=== PATIENT | male | born 1980 | race Hispanic/Latino ===

== ENCOUNTER 2020-09-09 18:28 | Inpatient (IN) | payer SELFPAY ==
--- OUTSIDE RECORDS SUMMARY | 2020-09-09 18:32 | XMS REPORT | Continuity of Care Document ---
:1980 Author Organization [facility] t Address [address] [place] [address] Care Team Providers Name Role Phone Hailey Ruano MD Attending Clinician Problems This patient has no known problems. Allergies, Adverse Reactions, Alerts This patient has no known allergies or adverse reactions. Medications This patient has no known medications. Procedures This patient has no known procedures. Encounters Start End Encounter Admission Attending Care Care Encounter Source Date/Time Date/Time Type Type Clinicians Facility Department ID 2020-07-18 2020-07-18 Emergency Bindu, TRAUMA [id number] 18:53:00 22:47:00 Oscar BECERRA [id number] Results This patient has no known results.
[2020-09-09 20:12] LABS: Absolute Lymphocytes (CBC) 2.6 K/uL (0.7-4.9); Basophils % 1.4 % (0-1.3); Hematocrit 31.7 % (39.6-49.0); Lymphocytes % 19.7 % (15.3-44.8); MPV 9.5 fL (7.6-11.3); RBC Red Blood Cell Count 3.55 M/uL (4.33-5.43)
[2020-09-09 20:15] LABS: Urine Blood 1+ (Negative); Urine Glucose 2+ (Negative); Urine Protein Negative (Negative)
--- NOTE | 2020-09-09 20:22 | RAD REPORT ---
EXAM DESCRIPTION: RAD - Chest Single View - 09/09/2020 8:06 pm CLINICAL HISTORY: SWELLING Chest pain. COMPARISON: No comparisons FINDINGS: Portable technique limits examination quality. Mild interstitial pulmonary edema suspected. The heart is upper limit normal in size with a tortuous thoracic aorta. No displaced fractures.
[2020-09-09 20:25] LABS: Protime INR 1.05
--- NOTE | 2020-09-09 20:30 | RAD REPORT ---
EXAM DESCRIPTION: CT - Stone Protocol - 09/09/2020 8:15 pm CLINICAL HISTORY: Flank pain. HEMATURIA COMPARISON: No comparisons TECHNIQUE: Axial images were obtained without oral or IV contrast. Lack of contrast limits solid org an and vascular assessment. The [id number] spans the entirety of the system partially obscuring uppermost abdomen and lung bases. Coronal reformatted images were obtained and reviewed. All CT scans are performed using dose optimization technique as appropriate and may include automated exposure control or mA/KV adjustment according to patient size. FINDINGS: The lower lung austin are clear. Imaged portions of the liver and spleen show no suspicious findings on non-contrast imaging. The panc reas and adrenal glands are normal. No pathologic lymphadenopathy in the abdomen or pelvis. Severe bilateral hydroureter and hydronephrosis is present. The urinary bladder is distended and cont ains air. No obstructing renal calculus seen. No bowel obstruction, free air, free fluid or abscess. Normal appendix noted.Fat containing bilateral inguinal hernias, larger on the right. No significant bony abnormality. IMPRESSION: Severe bilateral hydroureter, hydronephrosis in urinary bladder distention is present. A ir is also present in the bladder, which may be related to infection or recent instrumentation. A danyell dder outlet obstruction is suspected.
[2020-09-09] MEDS ORDERED: NA CHLORIDE 0.9% 2,000 ML ONE (20:34)
[2020-09-09] MEDS ORDERED: CEFTRIAXONE/SWI 1gm 1 GM/10 ML SYR ONE (20:36)
[2020-09-09] MEDS ORDERED: INSULIN -REGULAR HUMAN 50 UNIT/0.5 ML ML ONE ×2 (20:36→23:59)
[2020-09-09 20:49] LABS: ALT/SGPT 12 U/L (12-78); AST/SGOT 8 U/L (15-37); Albumin 2.8 g/dL (3.4-5.0); Alkaline Phosphatase 199 U/L (45-117); BUN Blood Urea Nitrogen 37 mg/dL (7-18); Bicarbonate 21 mmol/L (21-32); Bilirubin Direct < 0.1 mg/dL (0-0.2); Bilirubin Total 0.2 mg/dL (0.2-1.0); Lipase 160 U/L (73-393); Magnesium 2.2 mg/dL (1.8-2.4); NT PRO-BNP 181 pg/mL (<125); Potassium 3.9 mmol/L (3.5-5.1); Protein, Total 8.2 g/dL (6.4-8.2); Sodium Level 126 mmol/L (136-145); Troponin (Emerg Dept Use Only) < 0.02 ng/mL (0.0-0.045)
--- NOTE | 2020-09-09 20:49 | ER ---
Nurse's Notes [facility] Name: Alex Skaggs Age: 40 yrs Sex: Male : 1980 Arrival Date: 09/09/2020 Time: 18:32 Bed 26 Private MD: Diagnosis: Retention of urine-bladder outlet obstruction. PVR 1500 CC;Urinary tract infection, site not specified;Acute kidney failure;Type 2 diabetes mellitus-uncontrolled;Hydroureter;Hydronephrosis with ureteral stricture, not elsewhere classified-secondary to bladder outlet obstruction;Essential (primary) hypertension Presentation: 09/09 19:00 Chief complaint: Patient states: I am having numbness, weakness and my feet are swollen rr5 started around June. I feel that i gets worse now. I've been diagnosed with kidney infection last June and they said i have kidney infection. 19:00 Coronavirus screen: Client denies travel out of the [place] in the last 14 days. At this rr5 time, the client does not indicate any symptoms associated with coronavirus-19. Ebola Screen: Patient negative for fever greater than or equal to 101.5 degrees Fahrenheit, and additional compatible Ebola Virus Disease symptoms Patient denies exposure to infectious person. Patient denies travel to an Ebola-affected area in the 21 days before illness onset. Initial Sepsis Screen: Does the patient meet any 2 criteria? No. Patient's initial sepsis screen is negative. Does the patient have a suspected source of infection? No. Patient's initial sepsis screen is negative. Risk Assessment: Do you want to hurt yourself or someone else? Patient reports no desire to harm self or others. Onset of symptoms was June 2020. 19:00 Method Of Arrival: Wheelchair rr5 19:00 Acuity: MIKIE 2 rr5 Historical: - Allergies: 19:09 No Known Allergies; rr5 - Home Meds: 19:09 None [Active]; rr5 - PMHx: 19:09 Diabetes - NIDDM; Hypertension; kidney infection; rr5 - PSHx: 19:09 None; rr5 - Immunization history:: Adult Immunizations up to date. - Social history:: Smoking status: Patient reports the use of cigarette tobacco products, smokes one pack cigarettes per day. Patient uses alcohol, street drugs. Screenin:00 Abuse screen: Denies threats or abuse. Denies injuries from another. Nutritional screening: No deficits noted. Tuberculosis screening: No symptoms or risk factors identified. Fall Risk None identified. Assessment: 19:30 General: Appears in no apparent distress. Behavior is calm, cooperative, appropriate wh for age. Pain: Denies pain. Neuro: Level of Consciousness is awake, alert, obeys commands, Oriented to person, place, time, situation, Appropriate for age. Cardiovascular: Heart tones S1 S2 Edema BLE. Respiratory: Airway is patent Respiratory effort is even, unlabored, Respiratory pattern is regular, symmetrical, Breath sounds are clear bilaterally. GI: Abdomen is round non-distended. : Reports urinary frequency. EENT: No signs and/or symptoms were reported regarding the EENT system. Derm: Skin is intact, is healthy with good turgor, Skin is pink, warm \T\ dry. normal. Musculoskeletal: Circulation, motion, and sensation intact. 21:00 Reassessment: Patient appears in no apparent distress at this time. No changes from previously documented assessment. Patient and/or family updated on plan of care and expected duration. Pain level reassessed. Patient is alert, oriented x 3, equal unlabored respirations, skin warm/dry/pink. 21:20 Reassessment: MD at bedside explaining POC, Pt refusing all treatments and wanting to wh sign out AMA. 22:00 Reassessment: Pt decided to be admitted and agreeable to POC. 23:00 Reassessment: Patient appears in no apparent distress at this time. Patient and/or family updated on plan of care and expected duration. Pain level reassessed. Patient is alert, oriented x 3, equal unlabored respirations, skin warm/dry/pink. 09/10 00:00 Reassessment: Provider at bedside explaining POC need foradmit. Vital Signs: 09/09 19:00 BP 179 / 115; Pulse 111; Resp 19; Temp 99; Pulse Ox 100% ; Weight 108.86 kg; Height 5 rr5 ft. 4 in. (162.56 cm); Pain 7/10; 21:00 BP 174 / 115; Pulse 113; Resp 18; Pulse Ox 100% on R/A; wh 22:00 BP 140 / 102; Pulse 115; Resp 18; Pulse Ox 99% ; 09/10 00:00 BP 154 / 94; Pulse 117; Resp 18; Pulse Ox 100% ; wh 09/09 19:00 Body Mass Index 41.20 (108.86 kg, 162.56 cm) rr5 ED Course: 09/09 18:32 Patient arrived in ED. as 19:08 Triage completed. rr5 19:10 Arm band placed on right wrist. rr5 19:31 Laron Pham MD is Attending Physician. karen 19:40 Missed attempt(s): 22 gauge in left antecubital area. Bleeding controlled, band aid ds4 applied, catheter tip intact. 20:00 Patient has correct armband on for positive identification. Placed in gown. Bed in low wh position. Call light in reach. Side rails up X 1. court recording monitor on. Pulse ox on. NIBP on. 20:06 XRAY Chest (1 view) In Process Unspecified. EDMS 20:10 Joe Webb, CHIDI is Primary Nurse. mg2 20:15 CT Stone Protocol In Process Unspecified. EDMS 20:25 Inserted saline lock: 20 gauge in right upper arm, using aseptic technique. Blood rr5 collected. 20:25 First set of blood cultures drawn by me. rr5 20:40 Second set of blood cultures drawn by me. rr5 20:42 COVID swab sent to lab. rr5 20:52 initiated a transfer with Tigist Sylvester from [facility]. mw2 21:24 doc to doc with the Urologist from [facility]. mw2 21:26 transfer canceled. mw2 21:27 Marta Bright MD is Hospitalizing Provider. karen 09/10 00:30 No provider procedures requiring assistance completed. Patient admitted, IV remains in place. Administered Medications: 09/09 20:35 Drug: NS 0.9% 1000 ml Route: IV; Rate: 1 bolus; Site: right upper arm; rr5 22:55 Follow up: Response: No adverse reaction; IV Status: Completed infusion 20:35 Drug: Rocephin - (cefTRIAXone) 1 grams Route: IVPB; Infused Over: 30 mins; Site: right rr5 upper arm; 22:54 Follow up: Response: No adverse reaction; IV Status: Completed infusion 20:36 Drug: NS 0.9% 1000 ml Route: IV; Rate: 1 bolus; Site: right upper arm; rr5 22:55 Follow up: Response: No adverse reaction; IV Status: Completed infusion 20:38 Drug: Insulin Regular Human 10 units {Co-Signature: rr5 (Moustapha Rizzo RN).} Route: mg2 IVP; Site: right upper arm; 22:55 Follow up: Response: No adverse reaction; Blood sugar is lowered 20:40 Drug: Insulin Regular Human 10 units {Co-Signature: rr5 (Moustapha Rizzo RN).} Route: mg2 Sub-Q; Site: right lower abdomen; 22:55 Follow up: Response: No adverse reaction; Blood sugar is lowered 22:00 Drug: Viscous Lidocaine Liquid (4 %) 5 ml Route: Mucous Membrane; 22:01 Not Given (Duplicate Order): levofloxacin 500 mg 100 ml IVPB once over 60 mins [facility] 22:08 Drug: levofloxacin 500 mg Volume: 100 ml; Route: IVPB; Infused Over: 60 mins; Site: right upper arm; 22:54 Follow up: Response: No adverse reaction; IV Status: Completed infusion 22:54 Drug: Meropenem 1 grams Route: IV; Rate: per protocol; Site: right upper arm; 09/10 00:36 Follow up: Response: No adverse reaction; IV Status: Completed infusion 09/09 23:51 Drug: Zofran (Ondansetron) 4 mg Route: IVP; Site: right upper arm; 09/10 00:36 Follow up: Response: No adverse reaction 09/09 23:53 Drug: morphine 4 mg {Note: RASS 0.} Route: IVP; Site: right upper arm; 09/10 00:36 Follow up: Response: No adverse reaction; Pain is decreased; RASS: Alert and Calm (0) 09/09 23:55 Drug: LanTUS (insulin glargine) 30 units Route: Sub-Q; Site: right lower abdomen; 09/10 00:36 Follow up: Response: No adverse reaction 09/09 23:57 Drug: Insulin Regular Human 10 units {Co-Signature: mg2 (Joe Webb RN).} Route: wh IVP; Site: right upper arm; 09/10 00:53 Follow up: Response: No adverse reaction; Blood sugar is lowered Outcome: 09/09 20:48 ER care complete, transfer ordered by MD. karen 21:30 Decision to Hospitalize by Provider. kraen 09/10 00:30 Admitted to ER Hold. Please see [facility] for further documentation. Condition: stable Instructed on the need for admit. 18:06 Patient left the ED. aa5 Signatures: Dispatcher [employer] EDLaron Mahmood MD MD cha Martinez, Amelia as Calderon, Audri, RN RN aa5 Eric Barone ds4 Curtis Mackenzie RN RN Sue Metcalf 2 Joe Webb RN RN mg2 Moustapha Rizzo RN RN rr5 Moustapha Rizzo RN rr5 Joe Webb RN mg2 Corrections: (The following items were deleted from the chart) 09/09 19:13 19:00 Acuity: MIKIE 3 rr5 rr5
--- NOTE | 2020-09-09 20:49 | EDPHYS ---
Physician Documentation [facility] Name: Alex Skaggs Age: 40 yrs Sex: Male : 1980 Arrival Date: 09/09/2020 Time: 18:32 Bed 26 Private MD: ED Physician Laron Pham HPI: 09/09 19:40 This 40 yrs old Male presents to ER via Wheelchair with complaints of Leg karen Swelling, Feet Swelling, Numbness, kidney infection. 19:40 The patient's problem is reported as weakness, that is generalized. Onset: The karen symptoms/episode began/occurred 1 week(s) ago. Duration: The episode is continuous. Context: the episode(s) was witnessed, by family. The symptoms are alleviated by nothing. The symptoms are aggravated by nothing. Severity of symptoms: At their worst the symptoms were mild in the emergency department the symptoms are unchanged. Patient's baseline: Neuro: alert and fully oriented, Motor: no deficits, Ambulation: walks without assistance, Speech: normal, normal for age. The patient has experienced similar episodes in the past, several times. Historical: - Allergies: 19:09 No Known Allergies; rr5 - Home Meds: 19:09 None [Active]; rr5 - PMHx: 19:09 Diabetes - NIDDM; Hypertension; kidney infection; rr5 - PSHx: 19:09 None; rr5 - Immunization history:: Adult Immunizations up to date. - Social history:: Smoking status: Patient reports the use of cigarette tobacco products, smokes one pack cigarettes per day. Patient uses alcohol, street drugs. ROS: 19:43 Constitutional: Negative for fever, chills, and weight loss, Eyes: Negative for injury, karen pain, redness, and discharge, ENT: Negative for injury, pain, and discharge, Neck: Negative for injury, pain, and swelling, Cardiovascular: Negative for chest pain, palpitations, and edema, Respiratory: Negative for shortness of breath, cough, wheezing, and pleuritic chest pain, Abdomen/GI: Negative for abdominal pain, nausea, vomiting, diarrhea, and constipation, Back: Negative for injury and pain, MS/Extremity: Negative for injury and deformity, Skin: Negative for injury, rash, and discoloration, Psych: Negative for depression, anxiety, suicide ideation, homicidal ideation, and hallucinations, Allergy/Immunology: Negative for hives, rash, and allergies, Endocrine: Negative for neck swelling, polydipsia, polyuria, polyphagia, and marked weight changes. 19:43 : Positive for urinary symptoms, urinary frequency. Exam: 19:43 Constitutional: This is a well developed, well nourished patient who is awake, alert, karen and in no acute distress. Head/Face: Normocephalic, atraumatic. Eyes: Pupils equal round and reactive to light, extra-ocular motions intact. Lids and lashes normal. Conjunctiva and sclera are non-icteric and not injected. Cornea within normal limits. Periorbital areas with no swelling, redness, or edema. ENT: Nares patent. No nasal discharge, no septal abnormalities noted. Tympanic membranes are normal and external auditory canals are clear. Oropharynx with no redness, swelling, or masses, exudates, or evidence of obstruction, uvula midline. Mucous membranes moist. Neck: Trachea midline, no thyromegaly or masses palpated, and no cervical lymphadenopathy. Supple, full range of motion without nuchal rigidity, or vertebral point tenderness. No Meningismus. Chest/axilla: Normal chest wall appearance and motion. Nontender with no deformity. No lesions are appreciated. Respiratory: Lungs have equal breath sounds bilaterally, clear to auscultation and percussion. No rales, rhonchi or wheezes noted. No increased work of breathing, no retractions or nasal flaring. Abdomen/GI: Soft, non-tender, with normal bowel sounds. No distension or tympany. No guarding or rebound. No evidence of tenderness throughout. Back: No spinal tenderness. No costovertebral tenderness. Full range of motion. Male : Normal genitalia with no discharge or lesions. Skin: Warm, dry with normal turgor. Normal color with no rashes, no lesions, and no evidence of cellulitis. MS/ Extremity: Pulses equal, no cyanosis. Neurovascular intact. Full, normal range of motion. Neuro: Awake and alert, GCS 15, oriented to person, place, time, and situation. Cranial nerves II-XII grossly intact. Motor strength 5/5 in all extremities. Sensory grossly intact. Cerebellar exam normal. Normal gait. Psych: Awake, alert, with orientation to person, place and time. Behavior, mood, and affect are within normal limits. 19:43 Cardiovascular: Rate: tachycardic, Rhythm: regular, Pulses: Pulses are 4+ in bilateral radial, brachial, femoral, popliteal, posterior tibial and and dorsalis pedis arteries.. Heart sounds: murmur, not appreciated, Edema: is not appreciated, JVD: is not appreciated. 19:43 Abdomen/GI: Exam negative for acute changes. 19:43 Back: Exam negative for acute changes. 20:57 ECG was reviewed by the Attending Physician. [facility] Vital Signs: 19:00 BP 179 / 115; Pulse 111; Resp 19; Temp 99; Pulse Ox 100% ; Weight 108.86 kg; Height 5 rr5 ft. 4 in. (162.56 cm); Pain 7/10; 21:00 BP 174 / 115; Pulse 113; Resp 18; Pulse Ox 100% on R/A; wh 22:00 BP 140 / 102; Pulse 115; Resp 18; Pulse Ox 99% ; 09/10 00:00 BP 154 / 94; Pulse 117; Resp 18; Pulse Ox 100% ; 09/09 19:00 Body Mass Index 41.20 (108.86 kg, 162.56 cm) rr5 MDM: 09/09 19:31 Patient medically screened. [facility] 19:45 Differential diagnosis: nonspecific abdominal pain, UTI, urinary retention, karen prostatitis, urethritis. Differential Diagnosis altered mental status, sepsis. Data reviewed: vital signs, nurses notes, lab test result(s), EKG, radiologic studies, CT scan, plain films. Data interpreted: cafeteria monitor: rate is 111 beats/min, rhythm is regular, Pulse oximetry: on room air is 100 %. Test interpretation: by ED physician or midlevel provider: ECG, plain radiologic studies. Counseling: I had a detailed discussion with the patient and/or guardian regarding: the historical points, exam findings, and any diagnostic results supporting the discharge/admit diagnosis, lab results, radiology results. 09/09 19:24 Order name: Glucose, Ancillary Testing; Complete Time: 20:43 EDND 09/09 19:40 Order name: Basic Metabolic Panel [facility] 09/09 19:40 Order name: CBC with Diff [facility] 09/09 19:40 Order name: LFT's [facility] 09/09 19:40 Order name: Magnesium [facility] 09/09 19:40 Order name: NT PRO-BNP [facility] 09/09 19:40 Order name: PT-INR [facility] 09/09 19:40 Order name: Troponin (emerg Dept Use Only) [facility] 09/09 19:40 Order name: Blood Culture Adult (2) [facility] 09/09 19:40 Order name: Lipase [facility] 09/09 19:40 Order name: Lactate; Complete Time: 22:00 [facility] 09/09 19:40 Order name: Urine Culture [facility] 09/09 19:40 Order name: ABG [facility] 09/09 19:41 Order name: Basic Metabolic Panel EDND 09/09 19:41 Order name: CBC with Automated Diff; Complete Time: 20:43 EDND 09/09 19:41 Order name: Liver (Hepatic) Function EDND 09/09 19:41 Order name: Magnesium EDND 09/09 19:41 Order name: NT PRO-BNP EDND 09/09 19:41 Order name: Protime (+INR); Complete Time: 20:43 EDND 09/09 19:41 Order name: Troponin (Emerg Dept Use Only) [facility] 09/09 19:48 Order name: Glucose, Ancillary Testing; Complete Time: 20:43 [facility] 09/09 20:15 Order name: Urine Dipstick-Ancillary; Complete Time: 20:43 EDND 09/09 20:17 Order name: Urine Microscopic Only rr5 09/09 20:17 Order name: Urine Microscopic Only; Complete Time: 21:21 [facility] 09/09 22:18 Order name: SARS-COV-2 RT PCR; Complete Time: 23:13 [facility] 09/09 23:00 Order name: Glucose 09/09 23:01 Order name: Glucose Level [facility] 09/09 23:12 Order name: Glucose, Ancillary Testing; Complete Time: 23:13 [facility] 09/10 00:30 Order name: Lactate Sepsis 2 HR Follow-up EDND 09/09 19:40 Order name: XRAY Chest (1 view); Complete Time: 20:43 [facility] 09/09 19:46 Order name: CT Stone Protocol; Complete Time: 20:43 [facility] 09/10 01:49 Order name: Glucose, Ancillary Testing EDND 09/10 02:18 Order name: CPK ej 09/10 02:18 Order name: Uric Acid ej 09/10 04:04 Order name: Glucose, Ancillary Testing EDND 09/10 05:17 Order name: T4 Free EDND 09/10 05:17 Order name: Thyroid Stimulating Hormone EDND 09/10 05:48 Order name: CBC with Automated Diff EDND 09/10 06:15 Order name: Glucose, Ancillary Testing EDND 09/10 06:21 Order name: Uric Acid EDND 09/10 06:21 Order name: Creatine Phosphokinase EDND 09/10 06:34 Order name: Comprehensive Metabolic Panel EDND 09/10 06:34 Order name: Phosphorus EDND 09/10 06:34 Order name: Lipid Profile EDND 09/10 06:34 Order name: Magnesium EDND 09/10 06:45 Order name: LDL, Direct EDND 09/10 12:25 Order name: Glucose, Ancillary Testing EDND 09/10 18:05 Order name: Glucose, Ancillary Testing [facility] 09/09 19:40 Order name: EKG; Complete Time: 19:41 [facility] 09/09 19:40 Order name: Cardiac monitoring; Complete Time: 20:52 [facility] 09/09 19:40 Order name: EKG - Nurse/Tech; Complete Time: 20:52 [facility] 09/09 19:40 Order name: IV Saline Lock; Complete Time: 20:42 [facility] 09/09 19:40 Order name: Labs collected and sent; Complete Time: 19:47 [facility] 09/09 19:40 Order name: O2 Per Protocol; Complete Time: 19:47 [facility] 09/09 19:40 Order name: O2 Sat Monitoring; Complete Time: 19:47 [facility] 09/09 19:40 Order name: Urine Dipstick-Ancillary (obtain specimen); Complete Time: 20:41 [facility] 09/09 20:46 Order name: Herzog; Complete Time: 22:02 [facility] 09/09 23:08 Order name: CONS Physician Consult EDND EC:57 Rate is 113 beats/min. Rhythm is regular. QRS [place] is Normal. [place] interval is normal. [facility] QRS interval is normal. QT interval is normal. No Q waves. T waves are Normal. No ST changes noted. Clinical impression: NSR w/ Non-specific ST/T Changes and No evidence of ischemia. Interpreted by me. Reviewed by me. Administered Medications: 20:35 Drug: NS 0.9% 1000 ml Route: IV; Rate: 1 bolus; Site: right upper arm; rr5 22:55 Follow up: Response: No adverse reaction; IV Status: Completed infusion 20:35 Drug: Rocephin - (cefTRIAXone) 1 grams Route: IVPB; Infused Over: 30 mins; Site: right rr5 upper arm; 22:54 Follow up: Response: No adverse reaction; IV Status: Completed infusion 20:36 Drug: NS 0.9% 1000 ml Route: IV; Rate: 1 bolus; Site: right upper arm; rr5 22:55 Follow up: Response: No adverse reaction; IV Status: Completed infusion 20:38 Drug: Insulin Regular Human 10 units {Co-Signature: rr5 (Moustapha Rizzo RN).} Route: mg2 IVP; Site: right upper arm; 22:55 Follow up: Response: No adverse reaction; Blood sugar is lowered 20:40 Drug: Insulin Regular Human 10 units {Co-Signature: rr5 (Moustapha Rizzo RN).} Route: mg2 Sub-Q; Site: right lower abdomen; 22:55 Follow up: Response: No adverse reaction; Blood sugar is lowered 22:00 Drug: Viscous Lidocaine Liquid (4 %) 5 ml Route: Mucous Membrane; 22:01 Not Given (Duplicate Order): levofloxacin 500 mg 100 ml IVPB once over 60 mins [facility] 22:08 Drug: levofloxacin 500 mg Volume: 100 ml; Route: IVPB; Infused Over: 60 mins; Site: right upper arm; 22:54 Follow up: Response: No adverse reaction; IV Status: Completed infusion :54 Drug: Meropenem 1 grams Route: IV; Rate: per protocol; Site: right upper arm; 09/10 00:36 Follow up: Response: No adverse reaction; IV Status: Completed infusion 09/09 23:51 Drug: Zofran (Ondansetron) 4 mg Route: IVP; Site: right upper arm; 09/10 00:36 Follow up: Response: No adverse reaction 09/09 23:53 Drug: morphine 4 mg {Note: RASS 0.} Route: IVP; Site: right upper arm; 09/10 00:36 Follow up: Response: No adverse reaction; Pain is decreased; RASS: Alert and Calm (0) 09/09 23:55 Drug: LanTUS (insulin glargine) 30 units Route: Sub-Q; Site: right lower abdomen; 09/10 00:36 Follow up: Response: No adverse reaction 09/09 23:57 Drug: Insulin Regular Human 10 units {Co-Signature: mg2 (Joe Webb RN).} Route: IVP; Site: right upper arm; 09/10 00:53 Follow up: Response: No adverse reaction; Blood sugar is lowered Disposition: 09/09/20 21:30 Hospitalization ordered by Marta Bright for Inpatient Admission. Preliminary diagnosis are Retention of urine - bladder outlet obstruction. PVR 1500 CC, Urinary tract infection, site not specified, Acute kidney failure, Type 2 diabetes mellitus - uncontrolled, Hydroureter, Hydronephrosis with ureteral stricture, not elsewhere classified - secondary to bladder outlet obstruction, Essential (primary) hypertension. - Bed requested for Telemetry/MedSurg (Inpatient). - Status is Inpatient Admission. aa5 - Condition is Fair. - Problem is new. - Symptoms have improved. Signatures: Dispatcher [employer] EDMS Anaid Hatfiedl, Laron Muhammad RN, MD MD cha Calderon, Audri RN RN aa5 Lorena Retana RN RN Curtis Mackenzie RN RN Joe Webb RN RN mg2 Moustapha Rizzo RN RN rr5 Moustapha Rizzo RN rr5 Joe Webb RN mg2 Corrections: (The following items were deleted from the chart) 09/09 20:50 20:48 09/09/2020 20:48 [facility] Diagnosis is Type 2 diabetes karen mellitus - uncontrolled; Urinary tract infection, site not specified; Hydroureter; Hydronephrosis with ureteral stricture, not elsewhere classified; Retention of urine; Obesity, unspecified; Elevated white blood cell count. Reason for transfer: Higher level of care. Accepting physician is to [facility], medicine , urology. Condition is Fair. Problem is new. Symptoms have improved. karen 21:19 19:47 CORONAVIRUS+MR.LAB.BRZ ordered. [facility] 21:26 20:50 09/09/2020 20:48 [facility] Diagnosis is Type 2 diabetes karen mellitus - uncontrolled; Urinary tract infection, site not specified; Hydroureter; Hydronephrosis with ureteral stricture, not elsewhere classified; Retention of urine; Obesity, unspecified; Elevated white blood cell count; Essential (primary) hypertension; Acute kidney failure. Reason for transfer: Higher level of care. Accepting physician is to [facility], medicine , urology. Condition is Fair. Problem is new. Symptoms have improved. karen 22:02 21:30 Hospitalization Ordered by Marta Bright MD for Inpatient Admission. Preliminary karen diagnosis is Retention of urine - bladder outlet obstruction; Urinary tract infection, site not specified; Acute kidney failure; Type 2 diabetes mellitus - uncontrolled; Hydroureter; Hydronephrosis with ureteral stricture, not elsewhere classified - secondary to bladder outlet obstruction. Bed requested for Telemetry/MedSurg (Inpatient). Status is Inpatient Admission. Condition is Fair. Problem is new. Symptoms have improved. karen 22:08 22:02 09/09/2020 21:30 Hospitalization Ordered by Marta Bright MD for Inpatient karen Admission. Preliminary diagnosis is Retention of urine - bladder outlet obstruction; Urinary tract infection, site not specified; Acute kidney failure; Type 2 diabetes mellitus - uncontrolled; Hydroureter; Hydronephrosis with ureteral stricture, not elsewhere classified - secondary to bladder outlet obstruction; Essential (primary) hypertension. Bed requested for Telemetry/MedSurg (Inpatient). Status is Inpatient Admission. Condition is Fair. Problem is new. Symptoms have improved. karen : 22:08 09/09/2020 21:30 Hospitalization Ordered by Marta Bright MD for Inpatient cg Admission. Preliminary diagnosis is Retention of urine - bladder outlet obstruction. PVR 1500 CC; Urinary tract infection, site not specified; Acute kidney failure; Type 2 diabetes mellitus - uncontrolled; Hydroureter; Hydronephrosis with ureteral stricture, not elsewhere classified - secondary to bladder outlet obstruction; Essential (primary) hypertension. Bed requested for Telemetry/MedSurg (Inpatient). Status is Inpatient Admission. Condition is Fair. Problem is new. Symptoms have improved. karen 09/10 17:02 09/09 23:31 09/09/2020 21:30 Hospitalization Ordered by Marta Bright MD for Inpatient dw Admission. Preliminary diagnosis is Retention of urine - bladder outlet obstruction. PVR 1500 CC; Urinary tract infection, site not specified; Acute kidney failure; Type 2 diabetes mellitus - uncontrolled; Hydroureter; Hydronephrosis with ureteral stricture, not elsewhere classified - secondary to bladder outlet obstruction; Essential (primary) hypertension. Bed requested for [facility] ER HOLD. Status is Inpatient Admission. Condition is Fair. Problem is new. Symptoms have improved. cg 09/10 18:06 17:02 09/09/2020 21:30 Hospitalization Ordered by Marta Bright MD for Inpatient aa5 Admission. Preliminary diagnosis is Retention of urine - bladder outlet obstruction. PVR 1500 CC; Urinary tract infection, site not specified; Acute kidney failure; Type 2 diabetes mellitus - uncontrolled; Hydroureter; Hydronephrosis with ureteral stricture, not elsewhere classified - secondary to bladder outlet obstruction; Essential (primary) hypertension. Bed requested for Telemetry/MedSurg (Inpatient). Status is Inpatient Admission. Condition is Fair. Problem is new. Symptoms have improved. dw
[2020-09-09 20:50] LABS: Glucose Level 775 mg/dL (74-106)
[2020-09-09 21:04] LABS: Urine Bacteria >50 /HPF (NONE SEEN); Urine RBC NONE SEEN /HPF (NONE SEEN)
[2020-09-09] MEDS ORDERED: Levofloxacin500mg IV 500 MG/100 ML BAG IV ONE (22:03)
[2020-09-09] MEDS ORDERED: LIDOCAINE VISCOUS 2% SOLN 15 ML UDC ONE (22:03)
[2020-09-09] MEDS ORDERED: Meropenem 1 GM/100 ML BAG ONE (22:22)
[2020-09-09] MEDS ORDERED: INSULIN GLARGINE 100 UNITS/ML SQ ONE (23:59)
[2020-09-10 00:24] VITALS: BMI 41.1
[2020-09-10] MEDS ORDERED: HYDRALAZINE HCL 20 MG/ML VIAL IV PRN (00:31)
[2020-09-10] MEDS ORDERED: ONDANSETRON 4 MG/2 ML VIAL IV PRN (00:31)
[2020-09-10] MEDS ORDERED: ACETAMINOPHEN 500 MG TAB PO PRN (00:31)
[2020-09-10] MEDS: NA CHLORIDE 0.9% 1,000 ML IV SCH ×2 (00:31→20:01)
[2020-09-10] MEDS: HEPARIN 5000 UNIT/ML 1 ML VIAL SQ SCH ×3 (01:00→17:00)
[2020-09-10] MEDS ORDERED: Meropenem 1 GM/100 ML BAG IV SCH (01:00)
[2020-09-10] MEDS ORDERED: HEPARIN 5000 UNIT/ML 1 ML VIAL ONE ×3 (01:21→17:59)
[2020-09-10] MEDS ORDERED: NA CHLORIDE 0.9% 1,000 ML ONE ×2 (01:21→11:38)
[2020-09-10] MEDS ORDERED: PHENAZOPYRIDINE 100MG TAB PO ONE ×2 (03:51→13:46)
[2020-09-10] MEDS ORDERED: ONDANSETRON 4 MG/2 ML VIAL ONE ×2 (03:52)
[2020-09-10] MEDS ORDERED: MORPHINE 4 MG/ML SYR ONE ×2 (03:52)
--- NOTE | 2020-09-10 05:30 | P.HP ---
Certification for Inpatient Patient admitted to: Inpatient With expected LOS: >2 Midnights Patient will require the following post-hospital care: None Practitioner: I am a practitioner with admitting privileges, knowledge of patient current condition, hospital course, and medical plan of care. Services: Services provided to patient in accordance with Admission requirements found in Title 42 Section 412.3 of the Code of Federal Regulations <Rosendo Coffman Nasrin - Last Filed: 09/10/20 05:25> Patient History Date of Service: 09/10/20 Primary Care Provider: Vilma Reason for admission: UTI, TJ, hydronephrosis History of Present Illness: Mr. Skaggs is a 40 yo M with DM and HTN here who was in his usual state of health until June. He says 2 weeks after starting new medications for his DM, he began having hematuria for 3-4 days. He was seen at [facility] and was told he had a severe UTI and needed IV abx but he left AMA. He has not taken any oral antibiotics. He says he has had night sweats, chills, bilateral flank pain, dizziness, frequency, incontinence, and difficulty walking. He denies urgency, diarrhea, constipation, nausea. He says he was taking up to 10 extra strength tylenol a day for his symptoms. He smokes 1ppd. CT scan showed Severe bilateral hydroureter, hydronephrosis in urinary bladder distention is present. Air is also present in the bladder, which may be related to infection or recent instrumentation. A bladder outlet obstruction is suspected. WBC 13.4. - Past Medical/Surgical History Has patient received pneumonia vaccine in the past: No Diabetic: Yes -: DM -: HTN -: Kidney Infection Past Surgical History: Patient denies surgical history - Family History Mother -: Diabetes Father -: Diabetes - Social History Smoking Status: Heavy Tobacco smoker (>10 cigarettes/day) Alcohol use: No CD- Drugs: No Caffeine use: No Place of Residence: Home <Rosendo Coffman - Last Filed: 09/10/20 05:25> Date of Service: 09/10/20 <Marta Bright - Last Filed: 09/15/20 06:01> Allergies No Known Allergies Allergy (Verified 09/10/20 00:25) Home Medications: NK [No Home Meds] 04/21/21 Review of Systems General: Chills, Sweats, As per HPI Eyes: Unremarkable ENT: Unremarkable Respiratory: Unremarkable Cardiovascular: Unremarkable Gastrointestinal: Vomiting, Abdominal Pain, As per HPI Genitourinary: Frequency, Incontinence, Hematuria, Retention, As per HPI Musculoskeletal: Back Pain, As per HPI Integumentary: Unremarkable Neurological: Unremarkable Lymphatics: Unremarkable <Rosendo Coffman - Last Filed: 09/10/20 05:25> Physical Examination - Vital Signs Temperature: 98.2 F Blood Pressure: 154/94 Pulse: 117 Respirations: 18 Pulse Ox (%): 100 - Physical Exam General: Alert, In no apparent distress, Oriented x3 HEENT: Atraumatic, Normocephalic, PERRLA, Mucous membr. moist/pink, EOMI, Sclerae nonicteric Neck: Supple, 2+ carotid pulse no bruit, JVD not distended, No Thyromegaly, No LAD Respiratory: Clear to auscultation bilaterally, Normal air movement Cardiovascular: No edema, Normal pulses, Regular rate/rhythm, Normal S1 S2, No gallops, No rubs, No murmurs Capillary refill: <2 Seconds Gastrointestinal: Normal bowel sounds, Soft and benign, No ascites, No tenderness, No masses, No rebound, No guarding Musculoskeletal: No clubbing, No swelling, No contractures, No erythema, No tenderness, No warmth Integumentary: No rashes, No breakdown, No significant lesion, No tenderness/swelling, No erythema, No warmth, No cyanosis Neurological: Normal gait, Normal speech, Normal strength at 5/5 x4 extr, Normal tone, Sensation intact, Cranial nerves 3-12 intact, Normal affect Lymphatics: No axilla or inguinal lymphadenopathy Urinary: Michel catheter - Studies Laboratory Data (last 24 hrs) 09/09/20 20:05: PT 12.1, INR 1.05 09/09/20 20:05: WBC 13.40 H, Hgb 10.7 L, Hct 31.7 L, Plt Count 456 H 09/09/20 20:05: Sodium 126 L, Potassium 3.9, BUN 37 H, Creatinine 3.27 H, Gl ucose 775 H*, Magnesium 2.2, Total Bilirubin 0.2, AST 8 L, ALT 12, Alkaline Phosphatase 199 H, Lipase 160 <Rosendo Coffman - Last Filed: 09/10/20 05:25> - Studies Microbiology Data (last 24 hrs): 09/09/20 20:40 Blood - Blood Aerobic Blood Culture - Final No growth in 5 days. 09/09/20 20:40 Blood - Blood Anaerobic Blood Culture - Final No growth in 5 days. 09/09/20 20:25 Blood - Blood Aerobic Blood Culture - Final No growth in 5 days. 09/09/20 20:25 Blood - Blood Anaerobic Blood Culture - Final No growth in 5 days. <Marta Bright - Last Filed: 09/15/20 06:01> Assessment and Plan - Plan Assessment UTI, bladder outlet obstruction, bilateral hydroureter and hydronephrosis hyperglycemia, uncontrolled DM HTN tobacco use disorder Plan urology consulted, nephrology consulted michel placed, monitor I&Os repeat renal ultrasound in 3 days trend Cr, IVF continue with abx, urine cultures pending, blood cultures pending hydralazine IV as needed for BP control nicotine patch for tobacco use Discharge Plan: Home Plan to discharge in: 72 Hours - Advance Directives Does patient have a Living Will: No Does patient have a Durable POA for Healthcare: No - Code Status/Comfort Care Code Status Assessed: Yes (full code) Critical Care: No Time Spent Managing Pts Care (In Minutes): 70 <Rosendo Coffman - Last Filed: 09/10/20 05:25> - Problems (Diagnosis) (1) Acute kidney injury Current Visit: Yes Status: Acute (2) Bladder outlet obstruction Current Visit: Yes Status: Acute (3) Bilateral hydronephrosis Current Visit: Yes Status: Acute <Marta Bright - Last Filed: 09/15/20 06:01> Date of Service: 09/10/20 Agree with plan of care as mentioned below <Marta Bright - Last Filed: 09/15/20 06:01>
[2020-09-10] MEDS ORDERED: MORPHINE 4 MG/ML SYR IV ONE (05:38)
[2020-09-10] MEDS ORDERED: PHENAZOPYRIDINE 100MG TAB PO PRN (05:38)
[2020-09-10 05:41] LABS: Absolute Lymphocytes (CBC) 3.2 K/uL (0.7-4.9); Basophils % 0.9 % (0-1.3); Lymphocytes % 22.5 % (15.3-44.8); MPV 9.2 fL (7.6-11.3); RBC Red Blood Cell Count 3.41 M/uL (4.33-5.43)
[2020-09-10] MEDS: INSULIN -REGULAR HUMAN 50 UNIT/0.5 ML ML SQ SCH ×4 (06:13→22:39)
[2020-09-10 06:21] LABS: Uric Acid 7.7 mg/dL (3.5-7.2)
[2020-09-10 06:28] LABS: ALT/SGPT 15 U/L (12-78); AST/SGOT 8 U/L (15-37); Albumin 2.5 g/dL (3.4-5.0); Alkaline Phosphatase 147 U/L (45-117); BUN Blood Urea Nitrogen 35 mg/dL (7-18); Bicarbonate 23 mmol/L (21-32); Bilirubin Total 0.3 mg/dL (0.2-1.0); HDL Cholesterol 20 mg/dL (40-60); Magnesium 2.2 mg/dL (1.8-2.4); Phosphorus 4.4 mg/dL (2.5-4.9); Potassium 4.4 mmol/L (3.5-5.1); Protein, Total 7.7 g/dL (6.4-8.2); Sodium Level 132 mmol/L (136-145)
[2020-09-10] MEDS ORDERED: INSULIN -REGULAR HUMAN 50 UNIT/0.5 ML ML ONE ×3 (06:29→18:16)
[2020-09-10 06:34] LABS: Glucose Level 442 mg/dL (74-106)
[2020-09-10 06:44] LABS: LDL, Direct 29 mg/dL (100-129)
[2020-09-10] MEDS ORDERED: INSULIN -REGULAR HUMAN 50 UNIT/0.5 ML ML SQ SCH (07:30)
[2020-09-10] MEDS ORDERED: Meropenem 1 GM/100 ML BAG ONE (08:33)
--- NOTE | 2020-09-10 08:33 | P.CNS ---
Date of Consult: 09/10/20 Reason for Consult: TJ/ CKD Requesting Physician: Marta Bright Primary Care Provider: Vilma Chief Complaint: UTI, TJ, hydronephrosis History of Present Illness: Mr. Skaggs is a 40 yo M with DM and HTN here who was in his usual state of health until June. He says 2 weeks after starting new medications for his DM, he began having hematuria for 3-4 days. He was seen at [facility] and was told he had a severe UTI and needed IV abx but he left AMA. He has not taken any oral antibiotics. He says he has had night sweats, chills, bilateral flank pain, dizziness, frequency, incontinence, and difficulty walking. He denies urgency, diarrhea, constipation, nausea. He says he was taking up to 10 extra strength tylenol a day for his symptoms. He smokes 1ppd. CT scan showed Severe bilateral hydroureter, hydronephrosis in urinary bladder distention is present. Air is also present in the bladder, which may be related to infection or recent instrumentation. A bladder outlet obstruction is suspected. Reports urinary difficulties for at least two months. Reports taking intermittent Tylenol and Ibuprofen approximately 10 times per day for the pubic pain. 19:40 This 40 yrs old Male presents to ER via Wheelchair with complaints of Leg karen Swelling, Feet Swelling, Numbness, kidney infection. 19:40 The patient's problem is reported as weakness, that is generalized. Onset: The karen symptoms/episode began/occurred 1 week(s) ago. Duration: The episode is continuous. Context: the episode(s) was witnessed, by family. The symptoms are alleviated by nothing. The symptoms are aggravated by nothing. Severity of symptoms: At their worst the symptoms were mild in the emergency department the symptoms are unchanged. Patient's baseline: Neuro: alert and fully oriented, Motor: no deficits, Ambulation: walks without assistance, Speech: normal, normal for age. The patient has experienced similar episodes in the past, several times. Allergies No Known Allergies Allergy (Verified 09/10/20 00:25) Home medications list reviewed: Yes Home Medications: NK [No Home Meds] 09/10/20 - Past Medical/Surgical History Diabetic: Yes -: DM -: HTN -: Kidney Infection - Family History Mother Medical History: Diabetes Father Medical History: Diabetes - Social History Alcohol use: No CD- Drugs: No Caffeine use: No Place of Residence: Home Review of Systems 10-point ROS is otherwise unremarkable General: Malaise Genitourinary: Dysuria Physical Examination Temp Pulse Resp BP Pulse Ox 98.4 F 103 H 18 126/88 97 09/10/20 07:59 09/10/20 07:59 09/10/20 05:33 09/10/20 07:59 09/10/20 07:59 General: Alert, Oriented x3, Cooperative HEENT: Atraumatic Neck: Supple Respiratory: Clear to auscultation bilaterally Cardiovascular: Regular rate/rhythm, Edema Gastrointestinal: Soft and benign, Non-distended, Tenderness Musculoskeletal: No clubbing, No contractures Integumentary: No rashes, No cyanosis Neurological: Normal speech Laboratory Data (last 24 hrs) 09/09/20 20:05: PT 12.1, INR 1.05 09/09/20 20:05: WBC 13.40 H, Hgb 10.7 L, Hct 31.7 L, Plt Count 456 H 09/09/20 20:05: Sodium 126 L, Potassium 3.9, BUN 37 H, Creatinine 3.27 H, Glucose 775 H*, Magnesium 2.2, Total Bilirubin 0.2, AST 8 L, ALT 12, Alkaline Phosphatase 199 H, Lipase 160 Imagings Data: EXAM DESCRIPTION: RAD - Chest Single View - 09/09/2020 8:06 pm CLINICAL HISTORY: SWELLING Chest pain. COMPARISON: No comparisons FINDINGS: Portable technique limits examination quality. Mild interstitial pulmonary edema suspected. The heart is upper limit normal in size with a tortuous thoracic aorta. No displaced fractures. EXAM DESCRIPTION: CT - Stone Protocol - 09/09/2020 8:15 pm CLINICAL HISTORY: Flank pain. HEMATURIA COMPARISON: No comparisons TECHNIQUE: Axial images were obtained without oral or IV contrast. Lack of contrast limits solid organ and vascular assessment. The [id number] spans the entirety of the system partially obscuring uppermost abdomen and lung bases. Coronal reformatted images were obtained and reviewed. All CT scans are performed using dose optimization technique as appropriate and may include automated exposure control or mA/KV adjustment according to patient size. FINDINGS: The lower lung austin are clear. Imaged portions of the liver and spleen show no suspicious findings on non-contr ast imaging. The pancreas and adrenal glands are normal. No pathologic lymphadenopathy in the abdomen or pelvis. Severe bilateral hydroureter and hydronephrosis is present. The urinary bladder is distended and contains air. No obstructing renal calculus seen. No bowel obstruction, free air, free fluid or abscess. Normal appendix noted.Fat containing bilateral inguinal hernias, larger on the right. No significant bony abnormality. IMPRESSION: Severe bilateral hydroureter, hydronephrosis in urinary bladder distention is present. Air is also present in the bladder, which may be related to infection or recent instrumentation. A bladder outlet obstruction is suspected. Conclusions/Impression: A/P: Continue the current POC and Medications other than the changes listed. AM Labs PRN. Recommend daily weight. Please see the orders for complete details. TJ likely due to excessive NSAIDs CKD (Baseline CKD is unclear) -No NSAIDs -Continue michel Bladder outlet obstruction with BL hydronephrosis and hydroureter -Continue michel -Recommend urology evaluation Hyponatremia -Continue IV NS HTN with tachycardia -Monitor BP LE Edema DM II with CKD -Continue Lantus -Continue RISS Moderate malnutrition -Encourage nutrition Anemia in chronic illness -Monitor H&H Acute cystitis -Continue Meropenem Case reviewed with Dr. Bright
[2020-09-10] MEDS: Meropenem 1 GM/100 ML BAG IV SCH ×2 (08:42→21:00)
[2020-09-10] MEDS: PHENAZOPYRIDINE 100MG TAB PO SCH ×3 (08:42→20:03)
[2020-09-10] MEDS ORDERED: Meropenem 1000 MG/VIAL IV SCH (09:00)
[2020-09-10] MEDS: NICOTINE 14 MG/PAT TD SCH (09:00)
[2020-09-10] MEDS: MORPHINE 2 MG/ML SYR IV PRN ×4 (09:24→22:42)
[2020-09-10] MEDS ORDERED: D50W 25 GM/50 ML SYRINGE IV PRN (11:55)
[2020-09-10] MEDS ORDERED: GLUCAGON 1 MG/VIAL IM PRN (11:55)
[2020-09-10] MEDS ORDERED: INSULIN GLARGINE 100 UNITS/ML SQ ONE ×2 (11:55→13:02)
[2020-09-10] MEDS ORDERED: PNEUMOCOCCAL VACCINE 0.5 ML IMVAC ONE (12:00)
[2020-09-10] MEDS ORDERED: MORPHINE 2 MG/ML SYR ONE ×2 (13:46→17:59)
--- NOTE | 2020-09-10 16:10 | EKG ---
Test Date: 2020-09-09 Test Time: 20:52:11 Braiding Machine Tender: LENCHO MEASUREMENT RESULTS: Intervals: Rate: 113 IA: 138 QRSD: 92 QT: 362 QTc: 496 [place]: P: 18 IA: 138 QRS: -13 T: 14 INTERPRETIVE STATEMENTS: Sinus tachycardia Nonspecific ST abnormality Abnormal ECG No previous ECG available for comparison Electronically Signed On 09-10-20 16:07:04 CDT by Farhad Johansen
[2020-09-10] MEDS ORDERED: HYDROCODONE/APAP 10/325 TAB PO PRN (16:23)
[2020-09-10] MEDS ORDERED: HYDROCODONE/APAP 10/325 TAB ONE (16:54)
[2020-09-10] MEDS ORDERED: INSULIN 70/30 100 UNITS/ML SQ ONE (19:05)
[2020-09-10] MEDS ORDERED: INSULIN GLARGINE 100 UNITS/ML SQ SCH (21:00)
[2020-09-10] MEDS ORDERED: LORAZEPAM 0.5 MG TABLET PO ONE (21:49)
[2020-09-11] MEDS ORDERED: HYDROMORPHONE HCL 0.5 MG/0.5 ML INJ IV ONE (00:42)
[2020-09-11] MEDS: HEPARIN 5000 UNIT/ML 1 ML VIAL SQ SCH ×3 (01:00→17:47)
[2020-09-11] MEDS: INSULIN -REGULAR HUMAN 50 UNIT/0.5 ML ML SQ SCH ×5 (01:02→20:38)
[2020-09-11] MEDS: MORPHINE 2 MG/ML SYR IV PRN ×3 (02:56→22:02)
[2020-09-11 04:16] LABS: Absolute Lymphocytes (CBC) 4.9 K/uL (0.7-4.9); Basophils % 0.9 % (0-1.3); Hematocrit 36.8 % (39.6-49.0); Lymphocytes % 29.4 % (15.3-44.8); MPV 9.4 fL (7.6-11.3); RBC Red Blood Cell Count 4.19 M/uL (4.33-5.43)
[2020-09-11 04:45] LABS: Albumin 2.8 g/dL (3.4-5.0); Bilirubin Total 0.2 mg/dL (0.2-1.0); Potassium 3.9 mmol/L (3.5-5.1); Protein, Total 8.4 g/dL (6.4-8.2)
[2020-09-11] MEDS ORDERED: HYDROMORPHONE HCL 1 MG/ML INJ IV PRN (06:00)
[2020-09-11] MEDS ORDERED: KCL 20 MEQ/100 mL IVPB 20 MEQ/100 ML BAG IV SCH (07:00)
[2020-09-11] MEDS: NA CHLORIDE 0.9% 1,000 ML IV SCH ×3 (07:10→20:24)
[2020-09-11] MEDS: HYDROMORPHONE HCL 0.5 MG/0.5 ML INJ IV PRN ×3 (07:10→19:04)
[2020-09-11] MEDS: PHENAZOPYRIDINE 100MG TAB PO SCH ×3 (10:43→20:26)
[2020-09-11] MEDS: NICOTINE 14 MG/PAT TD SCH (10:45)
[2020-09-11] MEDS: Meropenem 1 GM/100 ML BAG IV SCH ×2 (12:20→20:25)
[2020-09-11] MEDS ORDERED: D50W 25 GM/50 ML VIAL IV PRN (17:00)
[2020-09-11] MEDS ORDERED: NA CHLORIDE 0.9% 1,000 ML IV ONE (17:00)
[2020-09-11] MEDS: INSULIN GLARGINE 100 UNITS/ML SQ SCH (20:31)
[2020-09-11] MEDS ORDERED: FUROSEMIDE 40 MG/4 ML VIAL IV ONE (20:45)
[2020-09-11] MEDS ORDERED: POTASSIUM CL SA 10 MEQ TAB PO ONE (20:45)
--- NOTE | 2020-09-11 20:53 | P.PN ---
Date of Service: 09/11/20 Vital Signs Temp Pulse Resp BP Pulse Ox 96.8 F 113 H 18 127/90 96 09/11/20 16:00 09/11/20 16:00 09/11/20 19:04 09/11/20 16:00 09/11/20 19:04 Medications Acetaminophen (Acetaminophen 500 Mg Tab) 500 mg PO Q4HP PRN PRN Reason: Pain scale 2-4 (Mild) Last Admin: 09/10/20 20:05 Dose: 500 mg Documented by: Dextrose (D50w 25 Gm/50 Ml Vial) 12.5 gm IV PRN PRN; Protocol PRN Reason: HYPOGLYCEMIA Furosemide (Furosemide 40 Mg/4 Ml Vial) 40 mg IV 1X ONE Stop: 09/11/20 20:46 Glucagon (Glucagon 1 Mg/Vial) 1 mg IM 1X PRN; Protocol PRN Reason: HYPOGLYCEMIA Heparin Sodium (Porcine) (Heparin 5000 Unit/Ml 1 Ml Vial) 5,000 unit SQ Q8HR [facility] Last Admin: 09/11/20 17:47 Dose: 5,000 unit Documented by: Hydralazine HCl (Hydralazine Hcl 20 Mg/Ml Vial) 10 mg IV Q6HP PRN PRN Reason: Titrate to SBP (MUST DEFINE) Hydromorphone HCl (Hydromorphone Hcl 0.5 Mg/0.5 Ml Inj) 0.5 mg IV Q6H PRN PRN Reason: Pain scale 8-10 (Severe) Last Admin: 09/11/20 19:04 Dose: 0.5 mg Documented by: Meropenem (Merrem 1 Gm/100 Ml Ns Ivpb) 1 gm in 100 mls @ 100 mls/hr IV BID [facility] Last Admin: 09/11/20 20:25 Dose: 100 mls Documented by: Insulin Glargine (Insulin Glargine 100 Units/Ml) 40 units SQ BEDTIME [facility] Last Admin: 09/11/20 20:31 Dose: 40 units Documented by: Insulin Human Regular (Insulin -Regular Human 50 Unit/0.5 Ml Ml) 0 unit SQ ACHS [facility]; Protocol Last Admin: 09/11/20 20:38 Dose: 10 unit Documented by: Morphine Sulfate (Morphine 2 Mg/Ml Syr) 2 mg IV Q4H PRN PRN Reason: Pain scale 5-7 (Moderate) Last Admin: 09/11/20 14:51 Dose: 2 mg Documented by: Nicotine (Nicotine 14 Mg/Pat) 14 mg TD DAILY [facility] Last Admin: 09/11/20 10:45 Dose: 14 mg Documented by: Ondansetron HCl (Ondansetron 4 Mg/2 Ml Vial) 4 mg IV Q6HP PRN PRN Reason: NAUSEA / VOMITING Last Admin: 09/10/20 03:30 Dose: 4 mg Documented by: Phenazopyridine HCl (Phenazopyridine 100mg Tab) 200 mg PO TID [facility] Last Admin: 09/11/20 20:26 Dose: Not Given Documented by: Potassium Chloride (Potassium Cl Sa 10 Meq Tab) 20 meq PO 1X ONE Stop: 09/11/20 20:46 Sodium Chloride (Flush Normal Saline 10 Ml) 10 ml IV BID [facility] Last Admin: 09/11/20 20:25 Dose: 10 ml Documented by: Microbiology Results 09/09/20 20:10 Clean Catch Urine Kamas Count - Preliminary >100,000 CFU/ML. 09/09/20 20:10 Clean Catch Urine - Preliminary 09/09/20 20:40 Blood - Blood Aerobic Blood Culture - Preliminary No growth in 24 hours. 09/09/20 20:40 Blood - Blood Anaerobic Blood Culture - Preliminary No growth in 24 hours. 09/09/20 20:25 Blood - Blood Aerobic Blood Culture - Preliminary No growth in 24 hours. 09/09/20 20:25 Blood - Blood Anaerobic Blood Culture - Preliminary No growth in 24 hours. Assessment/ Plan: Nephrology No acute cardiac or pulmonary complaints. No CP or SOB. Fatigue and weakness. No acute events overnight. Vitals, medications, blood work and imaging reviewed in the chart. General: Alert, Oriented x3, Cooperative HEENT: Atraumatic Neck: Supple Respiratory: Clear to auscultation bilaterally Cardiovascular: Regular rate/rhythm, Edema Gastrointestinal: Soft and benign, Non-distended, Tenderness Musculoskeletal: No clubbing, No contractures Integumentary: No rashes, No cyanosis Neurological: Normal speech Laboratory Data (last 24 hrs) 09/09/20 20:05: PT 12.1, INR 1.05 09/09/20 20:05: WBC 13.40 H, Hgb 10.7 L, Hct 31.7 L, Plt Count 456 H 09/09/20 20:05: Sodium 126 L, Potassium 3.9, BUN 37 H, Creatinine 3.27 H, Glucose 775 H*, Magnesium 2.2, Total Bilirubin 0.2, AST 8 L, ALT 12, Alkaline Phosphatase 199 H, Lipase 160 Imagings Data: EXAM DESCRIPTION: RAD - Chest Single View - 09/09/2020 8:06 pm CLINICAL HISTORY: SWELLING Chest pain. COMPARISON: No comparisons FINDINGS: Portable technique limits examination quality. Mild interstitial pulmonary edema suspected. The heart is upper limit normal in size with a tortuous thoracic aorta. No displaced fractures. EXAM DESCRIPTION: CT - Stone Protocol - 09/09/2020 8:15 pm CLINICAL HISTORY: Flank pain. HEMATURIA COMPARISON: No comparisons TECHNIQUE: Axial images were obtained without oral or IV contrast. Lack of contrast limits solid organ and vascular assessment. The [id number]-ju-xrxh spans the entirety of the system partially obscuring uppermost abdomen and lung bases. Coronal reformatted images were obtained and reviewed. All CT scans are performed using dose optimization technique as appropriate and may include automated exposure control or mA/KV adjustment according to patient size. FINDINGS: The lower lung austin are clear. Imaged portions of the liver and spleen show no suspicious findings on non- contrast imaging. The pancreas and adrenal glands are normal. No pathologic lymphadenopathy in the abdomen or pelvis. Severe bilateral hydroureter and hydronephrosis is present. The urinary bladder is distended and contains air. No obstructing renal calculus seen. No bowel obstruction, free air, free fluid or abscess. Normal appendix noted.Fat containing bilateral inguinal hernias, larger on the right. No significant bony abnormality. IMPRESSION: Severe bilateral hydroureter, hydronephrosis in urinary bladder distention is present. Air is also present in the bladder, which may be related to infection or recent instrumentation. A bladder outlet obstruction is suspected. Conclusions/Impression: A/P: Continue the current POC and Medications other than the changes listed. AM Labs PRN. Recommend daily weight. Please see the orders for complete deta ils. TJ likely due to excessive NSAIDs complicated by urinary obstruction CKD (Baseline CKD is unclear) -No NSAIDs -Continue michel Bladder outlet obstruction with BL hydronephrosis and hydroureter -Continue michel Hyponatremia -Discontinue IV NS -Start furosemide HTN with tachycardia -Monitor BP LE Edema -Start furosemide DM II with CKD -Continue Lantus -Continue RISS Moderate malnutrition -Encourage nutrition Anemia in chronic illness -Monitor H&H Acute cystitis -Continue Meropenem Case reviewed with Dr. Bright
--- NOTE | 2020-09-11 21:29 | CON ---
Reason For Consultation: Bilateral hydronephrosis and acute urinary retention. History Of Present Illness: Mr. Skaggs is a 40-year-old gentleman with type 2 diabetes who presented to the emergency department 2 days ago with significant problems of ambulating. Prior to this, about 2 months ago he was seen in another emergency department because of gross hematuria and was diagnosed with a complicated urinary tract infection. They wanted to admit him at that time explaining his infection could not be treated with oral antimicrobials, and he would require IV antimicrobial therapy. He, however, refused the admission and went home without any antibiotics. The blood in the urine and the dysuria that he had been experiencing up until that point resolved within the next 3 to 4 days later, so he proceeded without concern about what had happened. Of note, over a year prior to this, he had been noting significant difficulty of voiding with having to strain to void. He never sought urologic or medical evaluation during that time. Right before he came to the emergency department within the last few weeks, however, he noted that he thought he was urinating "well" and that he was having to void frequently, voiding with a strong stream, but that he was leaking urine uncontrollably between voids or with the urge to void. Despite the abnormalities associated with how he was urinating, he somehow perceived that he was urinating better in that he was no longer having to strain to void. Unfortunately, his situation worsened to the point that he lost sensation in his arms and his legs, more specifically his fingers and his toes since he was admitted to the hospital within the last few days. Prior to that, he denied any neuropathy even any associated with his diabetes mellitus. Past Medical History: As above. Family History: He is and his is with him at the bedside. Physical Examination: The patient currently is lying in the bed, relatively comfortable appearing though indicating that he is in some degree of discomfort because of some pelvic region pain that he says has been there since the catheter was put in place. He is mildly obese. There is no dyspnea or signs of respiratory distress. A urethral Herzog catheter is in place with tea-colored urine. He is uncircumcised without any glandar lesions and the meatus is patent with the catheter within. Laboratory Analyses: Reveal a trend in the creatinine of the following; 09/09/2020, creatinine 3.27. 09/10/2020, creatinine 2.65. 09/11/2020, creatinine 2.21. He underwent a CT scan in the emergency department, which I reviewed the images of directly: Bilateral moderate to severe hydronephrosis with sausage ureters that extend all the way down to the ureterovesical junction. The left ureter appears to be somewhat laterally displaced in terms of its implantation at the UVJ, but the right ureter does appear to be in typical orthotopic position near the trigone. The bladder is massively distended on the CT scan and extending at least up to the level of the umbilicus. There is significant quantity of air in the bladder, but since no oral contrast was provided, while there is rectum and colon extending along the posterior surface of the bladder, it is unclear if there is any potential fistulous connection on this CT scan. No calculus related obstruction is appreciated along the course of the ureters or within the kidneys themselves. Assessment And Recommendation: This is a 40-year-old gentleman with type 2 diabetes and some neuropathic complications that have developed within the last few months, but potentially present for as long as a year, with bstructive lower urinary symptoms, incontinence, bilateral hydronephrosis associated with a massively distended bladder, and a complicated UTI/cystitis with air in the bladder potentially secondary to anatomic obstructing lesion, neuropathic detrusor dysfunction, enterovesical fistula, or the consequence of chronic severe obstructive prostatitis. The Herzog catheter should be left in place for 14 days minimum and he should see me as an outpatient in the Urology Clinic for cystoscopy and voiding trial. Once the organism causing his urinary tract infection is speciated and the sensitivities are known, he should be treated with at least 2 weeks of antimicrobial therapy to clear the infection. The cystoscopy will also evaluate the source of the gross hematuria, which he previously experienced as well as any anatomic obstruction that may have caused this degree of retention. Meanwhile, he would potentially benefit from starting Flomax 0.4 mg daily. I would be somewhat judicious about the use of the Pyridium because of its potential adverse renal function affect in the setting of acute kidney injury. Given his pelvic discomfort present at this time, consider belladonna and opiate suppository while an inpatient, and he may benefit from oxybutynin 5 mg tablets by mouth every 8 hours as needed to minimize the bladder spasms he is likely experiencing from the catheter having decompressed a chronically over distended detrusor. Consideration will be given on follow up for pelvic imaging with rectal contrast to evaluate for a fistula. As previously discussed via phone, I agree with the ultrasound scheduled for tomorrow morning, and we look to seen that the hydronephrosis has resolved and that the bladder is decompressed with a catheter in place. LADONNA/MODL Voice ID: [id number] Report ID: [id number] MTDD
[2020-09-12] MEDS: HEPARIN 5000 UNIT/ML 1 ML VIAL SQ SCH ×3 (01:15→16:19)
[2020-09-12] MEDS: HYDROMORPHONE HCL 0.5 MG/0.5 ML INJ IV PRN ×4 (01:16→18:09)
[2020-09-12] MEDS: MORPHINE 2 MG/ML SYR IV PRN ×4 (03:56→20:47)
[2020-09-12 04:14] LABS: Absolute Lymphocytes (CBC) 4.1 K/uL (0.7-4.9); Basophils % 1.1 % (0-1.3); Lymphocytes % 32.8 % (15.3-44.8); RBC Red Blood Cell Count 3.65 M/uL (4.33-5.43)
[2020-09-12 04:36] LABS: Albumin 2.3 g/dL (3.4-5.0); Bilirubin Total 0.2 mg/dL (0.2-1.0); Potassium 3.5 mmol/L (3.5-5.1); Protein, Total 6.8 g/dL (6.4-8.2)
[2020-09-12] MEDS ORDERED: POTASSIUM 25 MEQ EFFERV TAB PO ONE (05:32)
[2020-09-12] MEDS: NICOTINE 14 MG/PAT TD SCH (08:49)
[2020-09-12] MEDS: Meropenem 1 GM/100 ML BAG IV SCH ×2 (08:49→20:45)
[2020-09-12] MEDS: PHENAZOPYRIDINE 100MG TAB PO SCH ×3 (08:50→20:46)
--- NOTE | 2020-09-12 11:06 | RAD REPORT ---
EXAM DESCRIPTION: US - Renal Ultrasound-Complete - 09/12/2020 10:55 am CLINICAL HISTORY: Hydronephrosis COMPARISON: September 09, 2020 cat scan FINDINGS: The right kidney measures 13 cm with a normal echotexture. The left kidney measures 13 cm with a normal echotexture. Marked bilateral hydronephrosis is present. A Herzog catheter is present within a collapsed bladder IMPRESSION: Marked bilateral hydronephrosis
[2020-09-12] MEDS: INSULIN -REGULAR HUMAN 50 UNIT/0.5 ML ML SQ SCH ×3 (12:42→20:46)
[2020-09-12] MEDS ORDERED: FUROSEMIDE 40 MG/4 ML VIAL IV ONE (16:00)
[2020-09-12] MEDS ORDERED: POTASSIUM CL SA 10 MEQ TAB PO ONE (16:00)
[2020-09-12] MEDS ORDERED: AMILORIDE HCL 5 MG TABLET PO ONE (16:00)
[2020-09-12] MEDS: METOPROLOL TAR 25 MG TAB PO SCH (17:25)
[2020-09-12] MEDS ORDERED: HYDROCODONE/APAP 10/325 TAB PO PRN (17:55)
[2020-09-12] MEDS ORDERED: OXYBUTYNIN CHLORIDE 5 MG TAB PO ONE (19:00)
--- NOTE | 2020-09-12 20:06 | P.PN ---
Date of Service: 09/12/20 Vital Signs Temp Pulse Resp BP Pulse Ox 97.4 F 90 18 144/93 H 96 09/12/20 15:51 09/12/20 17:25 09/12/20 18:09 09/12/20 17:25 09/12/20 18:09 Medications Acetaminophen (Acetaminophen 500 Mg Tab) 500 mg PO Q4HP PRN PRN Reason: Pain scale 2-4 (Mild) Last Admin: 09/10/20 20:05 Dose: 500 mg Documented by: Hydrocodone Bitart/Acetaminophen (Hydrocodone/Apap 10/325 Tab) 1 tab PO Q4H PRN PRN Reason: Pain scale 8-10 (Severe) Dextrose (D50w 25 Gm/50 Ml Vial) 12.5 gm IV PRN PRN; Protocol PRN Reason: HYPOGLYCEMIA Glucagon (Glucagon 1 Mg/Vial) 1 mg IM 1X PRN; Protocol PRN Reason: HYPOGLYCEMIA Heparin Sodium (Porcine) (Heparin 5000 Unit/Ml 1 Ml Vial) 5,000 unit SQ Q8HR [facility] Last Admin: 09/12/20 16:19 Dose: 5,000 unit Documented by: Hydralazine HCl (Hydralazine Hcl 20 Mg/Ml Vial) 10 mg IV Q6HP PRN PRN Reason: Titrate to SBP (MUST DEFINE) Last Admin: 09/12/20 00:23 Dose: 10 mg Documented by: Hydrochlorothiazide (Hydrochlorothiazide 25 Mg Tab) 25 mg PO DAILY [facility] Hydromorphone HCl (Hydromorphone Hcl 0.5 Mg/0.5 Ml Inj) 0.5 mg IV Q6H PRN PRN Reason: Pain scale 8-10 (Severe) Last Admin: 09/12/20 18:09 Dose: 0.5 mg Documented by: Meropenem (Merrem 1 Gm/100 Ml Ns Ivpb) 1 gm in 100 mls @ 100 mls/hr IV BID [facility] Last Admin: 09/12/20 08:49 Dose: 100 mls Documented by: Insulin Glargine (Insulin Glargine 100 Units/Ml) 40 units SQ BEDTIME [facility] Last Admin: 09/11/20 20:31 Dose: 40 units Documented by: Insulin Human Regular (Insulin -Regular Human 50 Unit/0.5 Ml Ml) 0 unit SQ ACHS [facility]; Protocol Last Admin: 09/12/20 16:19 Dose: 10 unit Documented by: Losartan Potassium (Losartan Potassium 50 Mg Tablet) 50 mg PO BID [facility] Metoprolol Tartrate (Metoprolol Tar 25 Mg Tab) 25 mg PO BID 6AM 6PM [facility] Last Admin: 09/12/20 17:25 Dose: 25 mg Documented by: Morphine Sulfate (Morphine 2 Mg/Ml Syr) 2 mg IV Q4H PRN PRN Reason: Pain scale 5-7 (Moderate) Last Admin: 09/12/20 14:31 Dose: 2 mg Documented by: Nicotine (Nicotine 14 Mg/Pat) 14 mg TD DAILY [facility] Last Admin: 09/12/20 08:49 Dose: 14 mg Documented by: Ondansetron HCl (Ondansetron 4 Mg/2 Ml Vial) 4 mg IV Q6HP PRN PRN Reason: NAUSEA / VOMITING Last Admin: 09/10/20 03:30 Dose: 4 mg Documented by: Oxybutynin Chloride (Oxybutynin Chloride 5 Mg Tab) 5 mg PO BID [facility] Phenazopyridine HCl (Phenazopyridine 100mg Tab) 200 mg PO TID [facility] Last Admin: 09/12/20 13:24 Dose: Not Given Documented by: Sodium Chloride (Flush Normal Saline 10 Ml) 10 ml IV BID [facility] Last Admin: 09/12/20 08:50 Dose: 10 ml Documented by: Microbiology Results 09/09/20 20:10 Clean Catch Urine Aragon Count - Final >100,000 CFU/ML. 09/09/20 20:10 Clean Catch Urine - Final Escherichia Coli Esbl 09/09/20 20:40 Blood - Blood Aerobic Blood Culture - Preliminary No growth in 24 hours. 09/09/20 20:40 Blood - Blood Anaerobic Blood Culture - Preliminary No growth in 24 hours. 09/09/20 20:25 Blood - Blood Aerobic Blood Culture - Preliminary No growth in 24 hours. 09/09/20 20:25 Blood - Blood Anaerobic Blood Culture - Preliminary No growth in 24 hours. Assessment/ Plan: Nephrology No acute cardiac or pulmonary complaints. No CP or SOB. Persistent edema. No acute events overnight. Vitals, medications, blood work and imaging reviewed in the chart. General: Alert, Oriented x3, Cooperative HEENT: Atraumatic Neck: Supple Respiratory: Clear to auscultation bilaterally Cardiovascular: Regular rate/rhythm, Edema Gastrointestinal: Soft and benign, Non-distended, Tenderness Musculoskeletal: No clubbing, No contractures Integumentary: No rashes, No cyanosis Neurological: Normal speech Laboratory Data (last 24 hrs) 09/09/20 20:05: PT 12.1, INR 1.05 09/09/20 20:05: WBC 13.40 H, Hgb 10.7 L, Hct 31.7 L, Plt Count 456 H 09/09/20 20:05: Sodium 126 L, Potassium 3.9, BUN 37 H, Creatinine 3.27 H, Glucose 775 H*, Magnesium 2.2, Total Bilirubin 0.2, AST 8 L, ALT 12, Alkaline Phosphatase 199 H, Lipase 160 Imagings Data: EXAM DESCRIPTION: RAD - Chest Single View - 09/09/2020 8:06 pm CLINICAL HISTORY: SWELLING Chest pain. COMPARISON: No comparisons FINDINGS: Portable technique limits examination quality. Mild interstitial pulmonary edema suspected. The heart is upper limit normal in size with a tortuous thoracic aorta. No displaced fractures. EXAM DESCRIPTION: CT - Stone Protocol - 09/09/2020 8:15 pm CLINICAL HISTORY: Flank pain. HEMATURIA COMPARISON: No comparisons TECHNIQUE: Axial images were obtained without oral or IV contrast. Lack of contrast limits solid organ and vascular assessment. The [id number] spans the entirety of the system partially obscuring uppermost abdomen and lung bases. Coronal reformatted images were obtained and reviewed. All CT scans are performed using dose optimization technique as appropriate and may include automated exposure control or mA/KV adjustment according to patient size. FINDINGS: The lower lung [place] are clear. Imaged portions of the liver and spleen show no suspicious findings on non- contrast imaging. The pancreas and adrenal glands are normal. No pathologic lymphadenopathy in the abdomen or pelvis. Severe bilateral hydroureter and hydronephrosis is present. The urinary bladder is distended and contains air. No obstructing renal calculus seen. No bowel obstruction, free air, free fluid or abscess. Normal appendix noted.Fat containing bilateral inguinal hernias, larger on the right. No significant bony abnormality. IMPRESSION: Severe bilateral hydroureter, hydronephrosis in urinary bladder distention is present. Air is also present in the bladder, which may be related to infection or recent instrumentation. A bladder outlet obstruction is suspected. Conclusions/Impression: A/P: Continue the current POC and Medications other than the changes listed. AM Labs PRN. Recommend daily weight. Please see the orders for complete details. TJ likely due to excessive NSAIDs complicated by urinary obstruction CKD (Baseline CKD is unclear) -No NSAIDs -Continue michel Bladder outlet obstruction with BL hydronephrosis and hydroureter -Continue michel Hyponatremia resolved Hypokalemia -Replete oral potassium HTN with tachycardia -Start Losartan BID LE Edema -Give a dose of furosemide and amiloride. -Start HCTZ daily DM II with CKD -Continue Lantus -Continue RISS Moderate malnutrition -Encourage nutrition Anemia in chronic illness -Monitor H&H Acute cystitis -Continue Meropenem
[2020-09-12] MEDS: INSULIN GLARGINE 100 UNITS/ML SQ SCH (20:47)
[2020-09-12] MEDS: LOSARTAN POTASSIUM 50 MG TABLET PO SCH (20:47)
[2020-09-13] MEDS: HEPARIN 5000 UNIT/ML 1 ML VIAL SQ SCH ×4 (00:12→23:44)
[2020-09-13] MEDS: HYDROMORPHONE HCL 0.5 MG/0.5 ML INJ IV PRN ×4 (00:13→19:09)
[2020-09-13] MEDS: MORPHINE 2 MG/ML SYR IV PRN ×2 (04:06→20:10)
[2020-09-13 04:39] LABS: Absolute Lymphocytes (CBC) 4.2 K/uL (0.7-4.9); Basophils % 0.9 % (0-1.3); Hematocrit 29.4 % (39.6-49.0); Lymphocytes % 34.7 % (15.3-44.8); RBC Red Blood Cell Count 3.35 M/uL (4.33-5.43)
[2020-09-13 05:00] LABS: Albumin 2.4 g/dL (3.4-5.0); Bilirubin Total 0.2 mg/dL (0.2-1.0); Potassium 3.9 mmol/L (3.5-5.1); Protein, Total 6.6 g/dL (6.4-8.2)
[2020-09-13 05:03] LABS: Magnesium 1.7 mg/dL (1.8-2.4); Phosphorus 3.7 mg/dL (2.5-4.9); Potassium 3.9 mmol/L (3.5-5.1)
[2020-09-13] MEDS: METOPROLOL TAR 25 MG TAB PO SCH ×2 (05:16→18:00)
[2020-09-13] MEDS ORDERED: POTASSIUM CL SA 10 MEQ TAB PO ONE (05:19)
[2020-09-13] MEDS: INSULIN -REGULAR HUMAN 50 UNIT/0.5 ML ML SQ SCH ×4 (07:30→21:00)
[2020-09-13] MEDS ORDERED: OXYBUTYNIN CHLORIDE 5 MG TAB PO SCH (09:00)
[2020-09-13] MEDS: PHENAZOPYRIDINE 100MG TAB PO SCH ×3 (11:02→21:00)
[2020-09-13] MEDS: hydroCHLOROthiazide 25 MG TAB PO SCH (11:03)
[2020-09-13] MEDS: LOSARTAN POTASSIUM 50 MG TABLET PO SCH ×2 (11:05→20:10)
[2020-09-13] MEDS: NICOTINE 14 MG/PAT TD SCH (11:05)
[2020-09-13] MEDS: OXYBUTYNIN CHLORIDE 5 MG TAB PO SCH ×2 (11:05→20:10)
[2020-09-13] MEDS: Meropenem 1 GM/100 ML BAG IV SCH ×2 (11:42→20:11)
[2020-09-13] MEDS ORDERED: FUROSEMIDE 20 MG/ 2ML VIAL IV ONE (17:31)
[2020-09-13] MEDS: INSULIN GLARGINE 100 UNITS/ML SQ SCH (21:00)
[2020-09-14] MEDS: HYDROMORPHONE HCL 0.5 MG/0.5 ML INJ IV PRN ×4 (00:15→20:13)
[2020-09-14] MEDS: MORPHINE 2 MG/ML SYR IV PRN ×4 (03:37→22:55)
[2020-09-14 04:18] LABS: Potassium 4.1 mmol/L (3.5-5.1)
[2020-09-14] MEDS: METOPROLOL TAR 25 MG TAB PO SCH ×2 (05:15→16:36)
[2020-09-14] MEDS: INSULIN -REGULAR HUMAN 50 UNIT/0.5 ML ML SQ SCH ×4 (07:30→20:12)
--- NOTE | 2020-09-14 07:42 | P.PN ---
Subjective Date of Service: 09/11/20 Patient still having extreme amount of pain. Clinically not really feeling any better. Continue with current management in await urology consultation Review of Systems 10-point ROS is otherwise unremarkable Physical Examination - Vital Signs Temperature: 97.0 F Blood Pressure: 131/72 Pulse: 82 Respirations: 20 Pulse Ox (%): 97 - Physical Exam General: Alert, In no apparent distress, Oriented x3 HEENT: Atraumatic, PERRLA, EOMI Neck: Supple, JVD not distended Respiratory: Clear to auscultation bilaterally, Normal air movement Cardiovascular: Regular rate/rhythm, Normal S1 S2 Gastrointestinal: Normal bowel sounds, Tenderness (Flank tenderness and suprapubic tenderness) Musculoskeletal: No tenderness, Swelling Integumentary: No rashes Neurological: Normal speech, Normal tone, Normal affect Lymphatics: No axilla or inguinal lymphadenopathy - Studies Medications List Reviewed: Yes Assessment & Plan - Problems (Diagnosis) (1) Acute kidney injury Current Visit: Yes Status: Acute (2) Bladder outlet obstruction Current Visit: Yes Status: Acute (3) Bilateral hydronephrosis Current Visit: Yes Status: Acute - Plan Plan: 1. Continue with gentle hydration 2. Monitor renal function 3. Urology consultation 4. Strict input and output 5. Strict blood sugar control 6. GI and DVT prophylaxis Discharge Plan: Home Plan to discharge in: Greater than 2 days - Advance Directives Does patient have a Living Will: No Does patient have a Durable POA for Healthcare: No - Code Status/Comfort Care Code Status Assessed: Yes Code Status: Full Code Critical Care: No Time Spent Managing PTS Care (In Minutes): 35
--- NOTE | 2020-09-14 07:44 | P.PN ---
Date of Service: 09/12/20 Subjective Spoke with Urology and will need repeat ultrasound on Tuesday. May need J stent placement. This will be done on Tuesday if still has hydronephrosis. Patient still complaining of pain. Medication given for bladder spasms Review of Systems 10-point ROS is otherwise unremarkable Physical Examination - Vital Signs Reviewed - Physical Exam General: Alert, In no apparent distress, Oriented x3 Respiratory: Clear to auscultation bilaterally, Normal air movement Cardiovascular: Regular rate/rhythm, Normal S1 S2 Gastrointestinal: Normal bowel sounds, Tenderness (Flank tenderness and suprapubic tenderness) Musculoskeletal: No tenderness, Swelling Neurological: Normal speech, Normal tone, Normal affect Assessment & Plan - Problems (Diagnosis) (1) Acute kidney injury Current Visit: Yes Status: Acute (2) Bladder outlet obstruction Current Visit: Yes Status: Acute (3) Bilateral hydronephrosis Current Visit: Yes Status: Acute - Plan Plan: Continue with plan of care as mentioned below 1. Volume status is sufficient. Diurese gently. 2. Monitor renal function 3. Urology consultation appreciated; repeat renal ultrasound Tuesday. If persistent hydronephrosis than a possible J stent will be placed; if hydronephrosis improved then will plan to Dc home with Herzog catheter and outpatient follow-up 4. Strict input and output 5. Strict blood sugar control 6. GI and DVT prophylaxis
--- NOTE | 2020-09-14 07:45 | P.PN ---
Date of Service: 09/13/20 Subjective Abdominal pain is much improved. States that the medication for bladder spasm as helped him. Blood sugars are improved as well Review of Systems 10-point ROS is otherwise unremarkable Physical Examination - Vital Signs Reviewed - Physical Exam General: Alert, In no apparent distress, Oriented x3 Respiratory: Clear to auscultation bilaterally, Normal air movement Cardiovascular: Regular rate/rhythm, Normal S1 S2 Gastrointestinal: Normal bowel sounds, soft, nontender, nondistended Musculoskeletal: No tenderness, Swelling; swelling remains Neurological: Normal speech, Normal tone, Normal affect Assessment & Plan - Problems (Diagnosis) (1) Acute kidney injury Current Visit: Yes Status: Acute (2) Bladder outlet obstruction Current Visit: Yes Status: Acute (3) Bilateral hydronephrosis Current Visit: Yes Status: Acute (3) type 2 diabetes Current Visit: Yes Status: Acute - Plan Plan: Continue with plan of care as mentioned below 1. Gentle diuresing 2. Monitor renal function 3. Urology consultation appreciated; repeat renal ultrasound tomorrow. If persistent hydronephrosis than a possible J stent will be placed; if hydronephrosis improved then will plan to Dc home with Herzog catheter and outpatient follow-up 4. Strict input and output 5. Strict blood sugar control 6. GI and DVT prophylaxis
[2020-09-14] MEDS: hydroCHLOROthiazide 25 MG TAB PO SCH (08:01)
[2020-09-14] MEDS: NICOTINE 14 MG/PAT TD SCH (08:01)
[2020-09-14] MEDS: LOSARTAN POTASSIUM 50 MG TABLET PO SCH ×2 (08:01→20:12)
[2020-09-14] MEDS: PHENAZOPYRIDINE 100MG TAB PO SCH ×2 (08:02→13:22)
[2020-09-14] MEDS: Meropenem 1 GM/100 ML BAG IV SCH ×2 (08:02→20:13)
[2020-09-14] MEDS: OXYBUTYNIN CHLORIDE 5 MG TAB PO SCH ×2 (08:02→20:13)
[2020-09-14] MEDS: HEPARIN 5000 UNIT/ML 1 ML VIAL SQ SCH ×3 (08:03→23:39)
[2020-09-14] MEDS: INSULIN GLARGINE 100 UNITS/ML SQ SCH (20:12)
--- NOTE | 2020-09-14 20:17 | PN ---
Date of Progress Note: 09/14/2020 Subjective: The patient is seen at bedside. No events reported. Herzog catheter has been functionin g well. Denies any fevers, chills, chest pain, shortness of breath, nausea, vomiting, or diarrhea. He continues to have some mild suprapubic pain. Objective: Vital Signs: Blood pressure 125/73, pulse 90, temperature 98.5, blood pressure has been decreasing from 140s, 150s, down to 160s, initially down to the 110s, 120s, 130s. General: Obese, no acute distress. Heart: Regular rate and rhythm. No murmurs, rubs, or gallops. Lungs: Grossly clear. Abdomen: Soft with mild suprapubic tenderness. Extremities: Trace to 1+ edema. : Herzog catheter with yellow urine with some sediment noted in the tube. There is not any dieter h ematuria. Laboratory Data: CBC shows hemoglobin 9.9, hematocrit 29.4, that was from September 13. Electrolytes today show potassium 4.1, chloride 104, BUN and creatinine 24/1.7, and glucose of 185. Calcium is 8. 5. Current Medications: Reviewed. The patient did receive Lasix yesterday. He is on hydrochlorothiazi de, intermittent analgesia with Dilaudid. He is also on losartan 50 b.i.d. Remainder medications we re reviewed. Impression: 1.Acute kidney injury and severe obstructive nephropathy. 2.Electrolyte imbalance. 3.Suprapubic pain. 4.Urinary tract infection. 5.Uncontrolled diabetes mellitus. Plan: The patient's renal function does continue to improve. He does have polyuria in the setting o f postobstructive diuresis with over 3 L of urine output. We will need to closely monitor electrolyt es. Blood pressure is coming down and we need to closely monitor the patient's renal function as wel l as blood pressure trend with concurrent use of diuretics. The patient may need maintenance IV flui ds and that will be based on the further 24 hour output and hemodynamics as mentioned. Avoid NSAIDs without any contrast. Urology input was appreciated and Pyridium was discontinued. SE/MODL Voice ID: [id number] Report ID: [id number]
--- NOTE | 2020-09-14 21:15 | RAD REPORT ---
EXAM DESCRIPTION: US - Renal Ultrasound-Complete - 09/14/2020 9:07 pm CLINICAL HISTORY: Hydronephrosis COMPARISON: September 12, 2020 FINDINGS: The right kidney measures 13 cm with a normal echotexture. The left kidney measures 13 cm with a normal echotexture. Marked bilateral hydronephrosis is without significant change. The bladder is collapsed presumably secondary to a Herzog catheter in place IMPRESSION: No significant change in marked bilateral hydronephrosis
--- NOTE | 2020-09-14 22:26 | PN ---
This was a telephone consultation with the patient who has been admitted to the hospital for the last several days after presenting to the Emergency Department with pelvic pain, inability to ambulate, associated with a massively overdistended bladder, and ESBL producing organism causing infection, and bilateral hydronephrosis associated with acute kidney injury. As the patient had been dealing with this for over 2 months associated with gross hematuria, the initial plan was urethral Herzog catheter decompression with renal ultrasound performed intervally to assess for resolution of the hydronephrosis. After an initial 2 days, the hydronephrosis failed to resolve, but because of the severe cystitis associated with his infection, I recommended an additional few days of antimicrobial therapy to allow the thickening of the detrusor, which may result in ureterovesical junction obstruction, to resolve and then repeat the ultrasound. Unfortunately, after now 5 days or so, despite effective or what should be effective antimicrobial therapy with the meropenem, the bilateral hydronephrosis persists despite him having a completely decompressed bladder and a Herzog catheter verified in place on ultrasound. As a result, I contacted the patient by phone to discuss the need for operative intervention and decompression of the hydronephrotic kidneys. I counseled him that there were 2 options for management of his obstruction: 1. Either place bilateral ureteral stents or. 2. Place bilateral externalized nephrostomy tubes. I explained that while there might be an attempt to place stents, sometimes the degree of anatomic disruption associated with the severe cystitis can be so severe that the ureteral orifices are not visualizable, and in that circumstance, it may be impossible to place stents. He would then be required to have nephrostomy tubes placed to affect adequate decompression of his obstructive upper tracts. I explained that if we were able to successfully place stents bilaterally, he would need to carefully understand that the stents were foreign bodies and had a limited timeframe that they could remain in situ without becoming encrusted, like barnacles on a ship, and become difficult to remove, resulting in a significantly increased risk of injury or anatomic disruption. As such, I counseled him that if he felt for any reason that he would not be able to comply with recommended followup as an outpatient, where we would determine the next management steps for the stents, the better course would be to place bilateral externalized nephrostomy tubes where the risk of such encrustation is not nearly as significant. He explained that he would much rather have the ureteral stents in place and that he understood that he absolutely would need to follow up in order to determine next steps in management and ultimately have the stents hopefully removed. As such, we agree that he would be scheduled tomorrow for cystoscopy and bilateral ureteral stent placement with the possibility that percutaneous nephrostomy tubes would be placed if we were unable to place the stents. I explained that this was necessary because his renal function, while it had improved, had seemed to plateau now associated with the ongoing hydronephrosis, which would be suggestive of the potential for ongoing obstruction. We will attempt to arrange a MAG3 Lasix renogram to definitively demonstrate the functional obstruction prior to surgery tomorrow given the possibility the patient's kidneys may simply be dysplastic or chronically overdistended and thus evidence hydronephrosis in the absence of definitive obstruction. While I think this is unlikely and we will plan to proceed with operative evaluation as he requires a cystoscopy for his gross hematuria anyway and to decipher the origin of his complicated urinary tract infection, if we are able to obtain the nuclear medicine study first, that would be of benefit. I counseled the patient for several minutes via telephone. He expressed understanding at each phase of the process, as well as the absolute need for followup. Addendum 09/15/20: I reviewed the imaging and tracings associated with the MAG3 renogram completed this morning. The T1/2 listed in the tracings did not equate with the impression given in the report, and after discussion with the radiologist, it was clear the error in that calculation. My interpretation: While initial prompt drainage does indeed occur resulting in rapid clearance of tracer, ultimately, the tracer simply accumulates within the pelvis and the true T1/2 is never reached during the time course of this study. Assessment: While this pattern may be seen in the setting of chronic obstruction, where chronic dysplastic overdistension of the renal collecting systems occurs and fails to shrink/resolve back to normal - even once the outlet obstruction has been resolved, it remains incumbent to eliminate the possibility of ongoing obstruction. Hence, cystoscopy and bilateral ureteral stents or percutaneous nephrostomy tubes is yet recommended. We will proceed as planned. Case scheduled as an add-on for today. LADONNA/NOELLE Voice ID: [id number] Report ID: [id number] [facility]
[2020-09-15] MEDS: HYDROMORPHONE HCL 0.5 MG/0.5 ML INJ IV PRN ×3 (01:35→23:04)
[2020-09-15 04:27] LABS: Magnesium 1.6 mg/dL (1.8-2.4); Potassium 3.8 mmol/L (3.5-5.1)
[2020-09-15] MEDS: MORPHINE 2 MG/ML SYR IV PRN ×2 (05:12→13:00)
[2020-09-15] MEDS: METOPROLOL TAR 25 MG TAB PO SCH ×2 (05:12→23:23)
--- NOTE | 2020-09-15 06:03 | P.PN ---
Date of Service: 09/14/20 Subjective Renal ultrasound with persistent hydronephrosis. Urology counseled with patient and planned for J stent tomorrow. If unable to do cystoscopy secondary to anatomic issues then nephrostomy tube may be placed. Review of Systems 10-point ROS is otherwise unremarkable Physical Examination - Vital Signs Reviewed - Physical Exam General: Alert, In no apparent distress, Oriented x3 Respiratory: Clear to auscultation bilaterally, Normal air movement Cardiovascular: Regular rate/rhythm, Normal S1 S2 Gastrointestinal: Normal bowel sounds, soft, nontender, nondistended Musculoskeletal: No tenderness, Swelling; swelling remains Neurological: Normal speech, Normal tone, Normal affect Assessment & Plan - Problems (Diagnosis) (1) Acute kidney injury Current Visit: Yes Status: Acute (2) Bladder outlet obstruction Current Visit: Yes Status: Acute (3) Bilateral hydronephrosis Current Visit: Yes Status: Acute (3) type 2 diabetes Current Visit: Yes Status: Acute - Plan Plan: Continue with plan of care as mentioned below 1. Gentle diuresing 2. Monitor renal function; continue to improve 3. Urology consultation appreciated; repeat renal ultrasound showed persistent hydronephrosis-possible J stent will be placed; 4. Strict input and output 5. Strict blood sugar control 6. Continue Ditropan for bladder spasms 7. GI and DVT prophylaxis
[2020-09-15] MEDS: INSULIN -REGULAR HUMAN 50 UNIT/0.5 ML ML SQ SCH ×4 (07:30→23:20)
--- NOTE | 2020-09-15 08:05 | ECHO ---
HEIGHT: 5 ft 4 in WEIGHT: 240 lb 0 oz DATE OF STUDY: 09/12/[address]: Marta Bright MD 2-DIMENSIONAL: YES M.MODE: YES DOPPLER: YES COLOR FLOW: YES TDS: PORTABLE: DEFINITY: BUBBLE STUDY: DIAGNOSIS: TACHYCARDIA/ ARRHYTHMIA CARDIAC HISTORY: CATHERIZATION: NO SURGERY: NO PROSTHETIC VALVE: NO PACEMAKER: NO MEASUREMENTS (cm) DIASTOLIC (NORMALS) SYSTOLIC (NORMALS) IVSd 1.2 (0.6-1.2) LA Diam 2.8 (1.9-4.0) LVEF 56% LVIDd 3.5 (3.5-5.7) LVIDs 2.5 (2.0-3.5) %FS 28% LVPWd 1.2 (0.6-1.2) Ao Diam 3.2 (2.0-3.7) 2 DIMENSIONAL ASSESSMENT: RIGHT ATRIUM: LEFT ATRIUM: RIGHT VENTRICLE: LEFT VENTRICLE: TRICUSPID VALVE: MITRAL VALVE: PULMONIC VALVE: AORTIC VALVE: PERICARDIAL EFFUSION: AORTIC ROOT: LEFT VENTRICULAR WALL MOTION: DOPPLER/COLOR FLOW: COMMENTS: NORMAL 2-DIMENSIONAL ECHOCARDIOGRAM. NORMAL WALL MOTION ABNORMALITY. NO EFFUSION. TECHNOLOGIST: JOSE R DAVENPORT
[2020-09-15] MEDS ORDERED: FUROSEMIDE 40 MG/4 ML VIAL ONE (08:54)
[2020-09-15] MEDS ORDERED: MAGNESIUM SULFATE 1 gm IVPB 1 GM/100 ML BAG IV ONE (09:00)
[2020-09-15] MEDS: HEPARIN 5000 UNIT/ML 1 ML VIAL SQ SCH ×2 (09:00→17:00)
--- NOTE | 2020-09-15 10:27 | RAD REPORT ---
EXAM DESCRIPTION: NM - Kidney Imag W/Flow F W - 09/15/2020 10:12 am CLINICAL HISTORY: rule out obstruction Flank pain, abdominal pain COMPARISON: Renal Ultrasound-Complete dated 09/14/2020; Stone Protocol dated 09/09/2020 TECHNIQUE: Following intravenous administration of 10.6 mCi Tc99m MAG-3, posterior dynamic angiogra m and sequential static images of the kidneys were obtained. 40 mg Lasix was administered intravenous ly 10 minutes into the study. Static post-void imaging was also performed. FINDINGS: Severe bilateral hydronephrosis and hydroureter is present. Symmetric flow seen to both kidneys. The differential split function demonstrates 62% left renal func tion and 32% right renal function. Over time, the amount of radiotracer in both collecting systems is seen to increase gradually. Follow ing the administration of Lasix, no significant diuresis is appreciated. This pattern suggests an otis tomic obstruction rather than functional in nature. IMPRESSION: Significant bilateral hydronephrosis and hydroureter is present likely attributable to a natomic obstruction given the lack of diuresis with Lasix.
[2020-09-15] MEDS: NICOTINE 14 MG/PAT TD SCH (10:39)
[2020-09-15] MEDS: LOSARTAN POTASSIUM 50 MG TABLET PO SCH ×2 (10:40→23:22)
[2020-09-15] MEDS: hydroCHLOROthiazide 25 MG TAB PO SCH (10:40)
[2020-09-15] MEDS: Meropenem 1 GM/100 ML BAG IV SCH ×2 (10:42→23:28)
[2020-09-15] MEDS: OXYBUTYNIN CHLORIDE 5 MG TAB PO SCH ×2 (10:42→23:22)
--- NOTE | 2020-09-15 15:41 | P.PN ---
Subjective Date of Service: 09/15/20 Primary Care Provider: Dr. Esparza Chief Complaint: UTI, TJ, hydronephrosis Subjective: Other (Patient still reports pain. Patient to have surgery today for stent placement.) Physical Examination - Vital Signs Temperature: 97.1 F Blood Pressure: 126/84 Pulse: 84 Respirations: 16 Pulse Ox (%): 95 - Studies Microbiology Data (last 24 hrs): 09/09/20 20:40 Blood - Blood Aerobic Blood Culture - Final No growth in 5 days. 09/09/20 20:40 Blood - Blood Anaerobic Blood Culture - Final No growth in 5 days. 09/09/20 20:25 Blood - Blood Aerobic Blood Culture - Final No growth in 5 days. 09/09/20 20:25 Blood - Blood Anaerobic Blood Culture - Final No growth in 5 days. Medications List Reviewed: Yes Assessment & Plan Discharge Plan: Home Plan to discharge in: 48 Hours Physician Review Additional Text: Physical exam: Patient alert, cooperative. Heart: Regular rate and rhythm Lungs: Clear to auscultation Abdomen: Soft. Tender to the right flank. Extremities: Good range of motion to the upper and lower extremities Impression: Acute renal failure with bladder outlet obstruction with noted bilateral hydronephrosis UTI, urine culture E. Coli-ESBL Diabetes mellitus type 2 Plan: Urology to have bilateral ureteral stents placed. Urine culture positive for ESBL. Patient will require IV antibiotic therapy. Will place PICC line. Will likely need 2 weeks of antibiotic therapy or more. Will discuss with nephrology and urology. Continue treatment for diabetes. We will monitor this closely. Continue to reassess and monitor closely. Patient on Ditropan due to bladder spasm. Will treat with pain medication. Anticipate improvement over the next 48 hours. Old consult social work to help with arrangements for IV diabetic therapy as an outpatient. Time Spent Managing Pts Care (In Minutes): 55
[2020-09-15] MEDS ORDERED: NA CHLORIDE 0.9% 1,000 ML ONE (16:14)
[2020-09-15] MEDS ORDERED: LIDOCAINE 1% MPF 5 ML VIAL ONE (17:45)
[2020-09-15] MEDS ORDERED: propofoL 200 MG/20 ML VIAL IV ONE (17:45)
[2020-09-15] MEDS ORDERED: FENTANYL CITR 100 MCG/2 ML ONE (17:46)
[2020-09-15] MEDS ORDERED: dexAMETHasone 10 MG/ML VIAL ONE (18:19)
--- NOTE | 2020-09-15 18:46 | RAD REPORT ---
EXAM DESCRIPTION: RAD - Cystography - 09/15/2020 6:34 pm CLINICAL HISTORY: Abdominal pain Bilateral hydronephrosis FINDINGS: Twenty-three fluoroscopic spot images obtained. Fluoroscopy time 1.1 minutes Both ureters were cannulated and contrast administered. Subsequently bilateral ureteral stents were p laced. Examination was performed by Dr Acosta
[2020-09-15] MEDS ORDERED: ONDANSETRON 4 MG/2 ML VIAL ONE (18:50)
--- NOTE | 2020-09-15 21:02 | P.PN ---
Date of Service: 09/15/20 Vital Signs Temp Pulse Resp BP Pulse Ox 97 F 83 16 141/82 H 95 09/15/20 20:00 09/15/20 19:03 09/15/20 19:03 09/15/20 19:03 09/15/20 15:47 Medications Acetaminophen (Acetaminophen 500 Mg Tab) 500 mg PO Q4HP PRN PRN Reason: Pain scale 2-4 (Mild) Last Admin: 09/10/20 20:05 Dose: 500 mg Documented by: Hydrocodone Bitart/Acetaminophen (Hydrocodone/Apap 10/325 Tab) 1 tab PO Q4H PRN PRN Reason: Pain scale 8-10 (Severe) Dextrose (D50w 25 Gm/50 Ml Vial) 12.5 gm IV PRN PRN; Protocol PRN Reason: HYPOGLYCEMIA Glucagon (Glucagon 1 Mg/Vial) 1 mg IM 1X PRN; Protocol PRN Reason: HYPOGLYCEMIA Heparin Sodium (Porcine) (Heparin 5000 Unit/Ml 1 Ml Vial) 5,000 unit SQ Q8HR [facility] Last Admin: 09/15/20 17:00 Dose: Not Given Documented by: Hydralazine HCl (Hydralazine Hcl 20 Mg/Ml Vial) 10 mg IV Q6HP PRN PRN Reason: Titrate to SBP (MUST DEFINE) Last Admin: 09/12/20 00:23 Dose: 10 mg Documented by: Hydrochlorothiazide (Hydrochlorothiazide 25 Mg Tab) 25 mg PO DAILY [facility] Last Admin: 09/15/20 10:40 Dose: 25 mg Documented by: Hydromorphone HCl (Hydromorphone Hcl 0.5 Mg/0.5 Ml Inj) 0.5 mg IV Q6H PRN PRN Reason: Pain scale 8-10 (Severe) Last Admin: 09/15/20 10:41 Dose: 0.5 mg Documented by: Meropenem (Merrem 1 Gm/100 Ml Ns Ivpb) 1 gm in 100 mls @ 100 mls/hr IV BID [facility] Last Admin: 09/15/20 10:42 Dose: 100 mls Documented by: Insulin Glargine (Insulin Glargine 100 Units/Ml) 40 units SQ BEDTIME [facility] Last Admin: 09/14/20 20:12 Dose: 40 units Documented by: Insulin Human Regular (Insulin -Regular Human 50 Unit/0.5 Ml Ml) 0 unit SQ ACHS [facility]; Protocol Last Admin: 09/15/20 16:30 Dose: Not Given Documented by: Losartan Potassium (Losartan Potassium 50 Mg Tablet) 50 mg PO BID [facility] Last Admin: 09/15/20 10:40 Dose: 50 mg Documented by: Metoprolol Tartrate (Metoprolol Tar 25 Mg Tab) 25 mg PO BID 6AM 6PM [facility] Last Admin: 09/15/20 05:12 Dose: Not Given Documented by: Morphine Sulfate (Morphine 2 Mg/Ml Syr) 2 mg IV Q4H PRN PRN Reason: Pain scale 5-7 (Moderate) Last Admin: 09/15/20 13:00 Dose: 2 mg Documented by: Nicotine (Nicotine 14 Mg/Pat) 14 mg TD DAILY [facility] Last Admin: 09/15/20 10:39 Dose: 14 mg Documented by: Ondansetron HCl (Ondansetron 4 Mg/2 Ml Vial) 4 mg IV Q6HP PRN PRN Reason: NAUSEA / VOMITING Last Admin: 09/10/20 03:30 Dose: 4 mg Documented by: Oxybutynin Chloride (Oxybutynin Chloride 5 Mg Tab) 5 mg PO BID [facility] Last Admin: 09/15/20 10:42 Dose: 5 mg Documented by: Sodium Chloride (Flush Normal Saline 10 Ml) 10 ml IV BID [facility] Last Admin: 09/15/20 09:00 Dose: 10 ml Documented by: Microbiology Results 09/09/20 20:40 Blood - Blood Aerobic Blood Culture - Final No growth in 5 days. 09/09/20 20:40 Blood - Blood Anaerobic Blood Culture - Final No growth in 5 days. 09/09/20 20:25 Blood - Blood Aerobic Blood Culture - Final No growth in 5 days. 09/09/20 20:25 Blood - Blood Anaerobic Blood Culture - Final No growth in 5 days. 09/09/20 20:10 Clean Catch Urine [place] Count - Final >100,000 CFU/ML. 09/09/20 20:10 Clean Catch Urine - Final Escherichia Coli Esbl Assessment/ Plan: Nephrology No acute cardiac or pulmonary complaints. No CP or SOB. Edema improving. Plan for nephrostomy tubes today. No acute events overnight. Vitals, medications, blood work and imaging reviewed in the chart. General: Alert, Oriented x3, Cooperative HEENT: Atraumatic Neck: Supple Respiratory: Clear to auscultation bilaterally Cardiovascular: Regular rate/rhythm, Edema Gastrointestinal: Soft and benign, Non-distended, Tenderness Musculoskeletal: No clubbing, No contractures Integumentary: No rashes, No cyanosis Neurological: Normal speech Laboratory Data (last 24 hrs) 09/09/20 20:05: PT 12.1, INR 1.05 09/09/20 20:05: WBC 13.40 H, Hgb 10.7 L, Hct 31.7 L, Plt Count 456 H 09/09/20 20:05: Sodium 126 L, Potassium 3.9, BUN 37 H, Creatinine 3.27 H, Glucose 775 H*, Magnesium 2.2, Total Bilirubin 0.2, AST 8 L, ALT 12, Alkaline Phosphatase 199 H, Lipase 160 Imagings Data: EXAM DESCRIPTION: RAD - Chest Single View - 09/09/2020 8:06 pm CLINICAL HISTORY: SWELLING Chest pain. COMPARISON: No comparisons FINDINGS: Portable technique limits examination quality. Mild interstitial pulmonary edema suspected. The heart is upper limit normal in size with a tortuous thoracic aorta. No displaced fractures. EXAM DESCRIPTION: CT - Stone Protocol - 09/09/2020 8:15 pm CLINICAL HISTORY: Flank pain. HEMATURIA COMPARISON: No comparisons TECHNIQUE: Axial images were obtained without oral or IV contrast. Lack of contrast limits solid organ and vascular assessment. The [id number] spans the entirety of the system partially obscuring uppermost abdomen and lung bases. Coronal reformatted images were obtained and reviewed. All CT scans are performed using dose optimization technique as appropriate and may include automated exposure control or mA/KV adjustment according to patient size. FINDINGS: The lower lung [place] are clear. Imaged portions of the liver and spleen show no suspicious findings on non- contrast imaging. The pancreas and adrenal glands are normal. No pathologic lymphadenopathy in the abdomen or pelvis. Severe bilateral hydroureter and hydronephrosis is present. The urinary bladder is distended and contains air. No obstructing renal calculus seen. No bowel obstruction, free air, free fluid or abscess. Normal appendix noted.Fat containing bilateral inguinal hernias, larger on the right. No significant bony abnormality. IMPRESSION: Severe bilateral hydroureter, hydronephrosis in urinary bladder distention is present. Air is also present in the bladder, which may be related to infection or recent instrumentation. A bladder outlet obstruction is suspected. Conclusions/Impression: A/P: Continue the current POC and Medications other than the changes listed. AM Labs PRN. Recommend daily weight. Please see the orders for complete details. TJ likely due to excessive NSAIDs complicated by urinary obstruction CKD (Baseline CKD is unclear) -No NSAIDs -Continue michel Bladder outlet obstruction with BL hydronephrosis and hydroureter -Continue michel -Follow up with urology Hyponatremia resolved Hypokalemia -Replete oral potassium HTN with tachycardia -Continue Losartan BID LE Edema -Continue HCTZ DM II with CKD -Continue Lantus -Continue RISS Moderate malnutrition -Encourage nutrition Anemia in chronic illness -Monitor H&H Acute cystitis -Continue Meropenem
--- NOTE | 2020-09-15 21:45 | OP ---
Surgeon: DIALLO GOMEZ Preoperative Diagnoses: 1. Bilateral ureteral obstruction. 2. Bilateral hydronephrosis. 3. Large volume urinary retention. 4. Acute on Chronic Kidney Injury Postoperative Diagnoses: 1. Bilateral ureteral obstruction. 2. Bilateral hydronephrosis. 3. Large volume urinary retention. 4. Acute on Chronic Kidney Injury 5. Possible primary bladder neck dysfunction. Procedures: 1. Cystoscopy. 2. Bilateral retrograde pyelographies. 3. Bilateral complicated ureteral stents placed. 4. Urethral Herzog catheter exchange. Indication For Procedure: Mr. Johnson is a 40-year-old gentleman, who presented to the hospital, unable to ambulate, potentially due to neuropathic complications from his diabetes or due to the added complications associated with his acute kidney injury and potential uremia. He was managed initially with Herzog catheter decompression of over 1.5 L of urine from his bladder, but despite appropriate antimicrobial therapy with meropenem and complete decompression of his bladder, after 5 days, bilateral severe hydronephrosis persisted and a MAG3 Lasix renogram revealed persistent obstruction of likely anatomic origin. As a result, I counseled the patient extensively on 3 different occasions, 2 by phone and 1 in person regarding the need or recommendation for management of the obstruction by either placement of ureteral stents or placement of nephrostomy tubes. Alternatively, I explained the patient could continue to observe with antimicrobial therapy and potentially have resolution of the hydronephrosis if ongoing UVJ obstruction due to the severity of the cystitis is the underlying source of the obstruction. He agreed to proceed with cystoscopy and bilateral ureteral stent placement if necessary. Procedure In Detail: The patient was consented in the preoperative holding area before being transferred to the operative suite where general anesthesia using an LMA was induced. He was being treated with meropenem on the floor and so no additional IV antimicrobial prophylaxis was required. Pneumoboots were applied for DVT prophylaxis and were active. He was placed in the lithotomy position, padded and secured to the table appropriately. His genitalia were prepped using Hibiclens and draped in standard fashion after the urethral Herzog catheter was removed. The case was then begun following a time-out by passing a 22-Bolivian rigid cystoscope with ease through a normal urethra and entering beyond the sphincteric bulb before entering the bladder. Of note, within the prostatic urethra, there was suggestion of elevation of the bladder neck, potentially consistent with primary bladder neck dysfunction. The bladder was then entered and surveyed. There were no concerning mucosal lesions, foreign bodies or stones within the bladder, though there was significant erythema and nodularity of the mucosa consistent with resolving severe cystitis. In the dome of the bladder posteriorly, there was an area of trauma likely from the indwelling urethral Herzog catheter tip there. The bladder was moderately to severely trabeculated throughout. The trigone and region at the bladder neck were relatively preserved, and the ureteral orifices were identified bilaterally. I initially cannulated the right ureteral orifice with the tip of a 5-Bolivian ureteral access catheter with ease. I was then able to perform a retrograde pyelogram on the right side. Right retrograde pyelography: Using a 70:30 mixture of Omnipaque and saline, contrast was injected via the 5- [place] ureteral access catheter and did immediately identify a markedly dilated distal ureter. A point of tortuosity was then encountered and contrast bolus of 10 mL was . An additional 10 mL contrast bolus was required to get the contrast to navigate beyond several more tortuous points of the ureter before entering a massively dilated renal pelvis and calices. I then was able to navigate an angled Sensor wire via the 5-Bolivian ureteral access catheter and get it to coil within the renal pelvis and upper pole of the kidney. Over the wire, I was then able to pass a 6-Bolivian by 26 cm double-J right ureteral stent with ease. A coil was observed fluoroscopically within the pelvis/upper pole, and 1 cystoscopically within the bladder. I then turned my attention to the left ureteral orifice to attempt to cannulate it with the 5-Bolivian ureteral access catheter. Unfortunately, it would not easily cannulate on like the right side. So, I utilized the Sensor wire via the 5-Bolivian ureteral access catheter in order to gain appropriate access and placed a 5-Bolivian ureteral access catheter a couple of centimeters into the UVJ. I then performed a retrograde pyelogram on the left side. Left retrograde pyelography: Using a 70:30 mixture of Omnipaque and saline, again contrast bolus delineated a markedly dilated distal ureter with tortuosity at multiple points. The contrast would not enter the renal pelvis, so an additional contrast bolus was again required. Eventually, a very markedly dilated renal pelvis with a point of obstruction at the ureteropelvic junction was observed. I then attempted to pass the Sensor wire via the 5-Bolivian ureteral access catheter into the renal pelvis, but met a point of obstruction at the level of the ureteropelvic junction. As a result, I left a wire coil there and advanced the 5-Bolivian ureteral access catheter up the tortuous ureter to the point of obstruction at the UPJ on the left side. With great difficulty, I was then able to manipulate, using fluoroscopic guidance, the angled Sensor wire beyond the point of UPJ obstruction and enter the renal pelvis. With some further manipulation, I was able to then advance the 5-Bolivian ureteral access catheter and the Sensor wire eventually until the tortuosity of the ureter then snapped back to straight, and I was able to then coil the wire within the renal pelvis, which was massively dilated. I then removed the 5-Bolivian ureteral access catheter leaving the Sensor wire in place, and I then passed a 6-Bolivian by 26 cm double-J left ureteral stent into the left renal pelvis and upper pole. A coil was observed again fluoroscopically there and 1 cystoscopically within the bladder. I then surveyed the remainder of the bladder again for any abnormalities, particularly within the region of the bladder neck, and when none were noted, I then took photographic evidence of each relevant anatomic point for documentation purposes and to provide to the patient to explain the potential source for the obstruction. I am unable to explain the complicated urinary tract infection other than potentially just the chronicity of the infection. Consideration must still be given to the potential for an enterovesical fistula. As a result, I then left his bladder full and passed a 16-Bolivian urethral Herzog catheter via the urethra into the bladder with ease, and I instilled 10 mL of sterile water into the balloon. The catheter was then connected to a floor bag and secured to his leg with a StatLock. He was then taken out of the lithotomy position, awakened from general anesthesia, transferred to a stretcher, and then transferred to the recovery room in good condition. Complications: None. Estimated Blood Loss: Negligible. Discharge Disposition: As the suspected nature of his obstruction appears to be simply functional at this point due to the prolonged distention of his bladder and upper tracts, I do not suspect the stents will be required chronically. I suspect his upper tracts may simply be dysplastically dilated at this point and may be relatively aperistaltic resulting in the inability to adequately drain and clear the urine and any tracer from a renography of his kidneys. I suspect there may be evidence of a primary bladder neck dysfunction-related obstruction here, which may benefit from transurethral incision of the bladder neck, but prior to this occurring, urodynamics will be required. Thus, as previously explained to the patient, he should maintain the urethral Herzog catheter for a minimum of 2 full weeks before following up with JORGE ALBERTO Fang in clinic for a [id number] trial. Continue Flomax. Set up urodynamic testing. The stents should remain in place for at least 6 weeks to allow resolution of the chronic distention. After 6 weeks, obtain a renal U/S to assess for persistent severe hydronephrosis. Following U/S completion, he should follow up with me (~6-8 weeks) where consideration may be given to removal of the stents with repeat MAG3 Lasix renogram to assess for resolution and recovery of function obtained within 6 weeks after that. Alternatively, given the complicated urinary tract infection, a CT scan of his abdomen and pelvis with oral and rectal contrast may be considered not only to document resolution of the bilateral hydronephrosis with the stents in place, but also to rule out the presence of an enterovesical fistula. All of these investigations are recommended and to be obtained as an outpatient after an adequate, 14 day, treatment course with cultures and sensitivity specific antimicrobial therapy. LADONNA/NOELLE Voice ID: [id number] Report ID: [id number]
[2020-09-15] MEDS: INSULIN GLARGINE 100 UNITS/ML SQ SCH (23:22)
[2020-09-16] MEDS: HEPARIN 5000 UNIT/ML 1 ML VIAL SQ SCH ×3 (01:10→17:36)
[2020-09-16 04:51] LABS: Magnesium 1.6 mg/dL (1.8-2.4); Potassium 4.4 mmol/L (3.5-5.1)
[2020-09-16] MEDS: HYDROMORPHONE HCL 0.5 MG/0.5 ML INJ IV PRN ×2 (06:11→15:54)
[2020-09-16] MEDS: METOPROLOL TAR 25 MG TAB PO SCH ×2 (06:12→17:37)
[2020-09-16] MEDS ORDERED: MAGNESIUM SULFATE 1 gm IVPB 1 GM/100 ML BAG IV ONE (06:51)
[2020-09-16] MEDS: INSULIN -REGULAR HUMAN 50 UNIT/0.5 ML ML SQ SCH ×4 (07:30→21:09)
[2020-09-16] MEDS: Meropenem 1 GM/100 ML BAG IV SCH ×2 (09:58→21:06)
[2020-09-16] MEDS: NICOTINE 14 MG/PAT TD SCH (09:59)
[2020-09-16] MEDS: hydroCHLOROthiazide 25 MG TAB PO SCH (09:59)
[2020-09-16] MEDS: LOSARTAN POTASSIUM 50 MG TABLET PO SCH ×2 (09:59→21:07)
[2020-09-16] MEDS: OXYBUTYNIN CHLORIDE 5 MG TAB PO SCH ×2 (10:01→21:07)
[2020-09-16] MEDS ORDERED: TRAMADOL HCL 50 MG TAB PO PRN (14:25)
--- NOTE | 2020-09-16 14:25 | P.PN ---
Subjective Date of Service: 09/16/20 Primary Care Provider: Dr. Esparza Chief Complaint: UTI, TJ, hydronephrosis Subjective: Improving, Doing well Physical Examination - Vital Signs Temperature: 97.9 F Blood Pressure: 122/71 Pulse: 91 Respirations: 18 Pulse Ox (%): 94 - Studies Medications List Reviewed: Yes Assessment & Plan Discharge Plan: Home Plan to discharge in: 48 Hours Physician Review Additional Text: Physical exam: Patient alert, cooperative. Heart: Regular rate and rhythm Lungs: Clear to auscultation Abdomen: Soft. Pain to the flank improved. Extremities: Good range of motion to the upper and lower extremities Impression: Acute renal failure with bilateral ureteral obstruction, bilateral hydro nephrosis, large volume urinary retention status post cystoscopy, bilateral retrograde pyelogram phase, bilateral complicated ureteral stents placement, urethral Herzog catheter exchange UTI, urine culture E. Coli-ESBL Diabetes mellitus type 2 with hyperglycemia Hypertension Tobacco abuse Obesity, BMI 39.9 Plan: Acute renal failure with bilateral ureteral obstruction, bilateral hydronephrosis, large volume urinary retention status post cystoscopy, bilateral retrograde pyelogram phase, bilateral complicated ureteral stents placement, urethral Herzog catheter exchange: Patient had bilateral ureteral stents placed yesterday. Continue with pain control. Encourage ambulation. Encourage incentive spirometer. DVT prophylaxis in place. Patient with UTIE. coliESBL. PICC line ordered. Patient will require IV Invanz 1 g for 14 days. As the patient is uninsured will need to arrange this through the hospital. We will have rn social work help in this process. Urology plans to recheck renal ultrasound and MAG3 Lasix renogram in 6 to 8 weeks. This is to consider removal of ureteral stents. Herzog catheter in place. We will monitor this closely. Anticipate possible discharge in the next 48 hours. UTI, urine culture E. Coli-ESBL: We will arrange for IV Invanz 1 g for 14 days. Recheck culture again today. Diabetes mellitus type 2 with hyperglycemia: Continue Lantus. Increase Lantus for better diabetic control. We will continue to adjust accordingly. Hypertension: Continue blood pressure medication losartan, hydrochlorothiazide and metoprolol. Blood pressure stable. Tobacco abuse: Continue nicotine patch Obesity, BMI 39.9: Continue with lifestyle modification education. Time Spent Managing Pts Care (In Minutes): 55
--- NOTE | 2020-09-16 20:19 | P.PN ---
Date of Service: 09/16/20 Vital Signs Temp Pulse Resp BP Pulse Ox 98.1 F 89 18 123/71 96 09/16/20 16:00 09/16/20 17:37 09/16/20 16:24 09/16/20 17:37 09/16/20 16:24 Medications Acetaminophen (Acetaminophen 500 Mg Tab) 500 mg PO Q4HP PRN PRN Reason: Pain scale 2-4 (Mild) Last Admin: 09/10/20 20:05 Dose: 500 mg Documented by: Hydrocodone Bitart/Acetaminophen (Hydrocodone/Apap 10/325 Tab) 1 tab PO Q4H PRN PRN Reason: Pain scale 8-10 (Severe) Last Admin: 09/16/20 09:57 Dose: 1 tab Documented by: Dextrose (D50w 25 Gm/50 Ml Vial) 12.5 gm IV PRN PRN; Protocol PRN Reason: HYPOGLYCEMIA Glucagon (Glucagon 1 Mg/Vial) 1 mg IM 1X PRN; Protocol PRN Reason: HYPOGLYCEMIA Heparin Sodium (Porcine) (Heparin 5000 Unit/Ml 1 Ml Vial) 5,000 unit SQ Q8HR [facility] Last Admin: 09/16/20 17:36 Dose: 5,000 unit Documented by: Hydralazine HCl (Hydralazine Hcl 20 Mg/Ml Vial) 10 mg IV Q6HP PRN PRN Reason: Titrate to SBP (MUST DEFINE) Last Admin: 09/12/20 00:23 Dose: 10 mg Documented by: Hydrochlorothiazide (Hydrochlorothiazide 25 Mg Tab) 25 mg PO DAILY [facility] Last Admin: 09/16/20 09:59 Dose: 25 mg Documented by: Hydromorphone HCl (Hydromorphone Hcl 0.5 Mg/0.5 Ml Inj) 0.5 mg IV Q6H PRN PRN Reason: Pain scale 8-10 (Severe) Last Admin: 09/16/20 15:54 Dose: 0.5 mg Documented by: Meropenem (Merrem 1 Gm/100 Ml Ns Ivpb) 1 gm in 100 mls @ 100 mls/hr IV BID [facility] Last Admin: 09/16/20 09:58 Dose: 100 mls Documented by: Insulin Glargine (Insulin Glargine 100 Units/Ml) 50 units SQ BEDTIME [facility] Insulin Human Regular (Insulin -Regular Human 50 Unit/0.5 Ml Ml) 0 unit SQ ACHS [facility]; Protocol Last Admin: 09/16/20 17:37 Dose: 8 unit Documented by: Losartan Potassium (Losartan Potassium 50 Mg Tablet) 50 mg PO BID [facility] Last Admin: 09/16/20 09:59 Dose: 50 mg Documented by: Metoprolol Tartrate (Metoprolol Tar 25 Mg Tab) 25 mg PO BID 6AM 6PM [facility] Last Admin: 09/16/20 17:37 Dose: 25 mg Documented by: Nicotine (Nicotine 14 Mg/Pat) 14 mg TD DAILY [facility] Last Admin: 09/16/20 09:59 Dose: 14 mg Documented by: Ondansetron HCl (Ondansetron 4 Mg/2 Ml Vial) 4 mg IV Q6HP PRN PRN Reason: NAUSEA / VOMITING Last Admin: 09/10/20 03:30 Dose: 4 mg Documented by: Oxybutynin Chloride (Oxybutynin Chloride 5 Mg Tab) 5 mg PO BID [facility] Last Admin: 09/16/20 10:01 Dose: 5 mg Documented by: Sodium Chloride (Flush Normal Saline 10 Ml) 10 ml IV BID [facility] Last Admin: 09/16/20 09:00 Dose: 10 ml Documented by: Tramadol HCl (Tramadol Hcl 50 Mg Tab) 50 mg PO TID PRN PRN Reason: Pain scale 2-4 (Mild) Microbiology Results 09/09/20 20:40 Blood - Blood Aerobic Blood Culture - Final No growth in 5 days. 09/09/20 20:40 Blood - Blood Anaerobic Blood Culture - Final No growth in 5 days. 09/09/20 20:25 Blood - Blood Aerobic Blood Culture - Final No growth in 5 days. 09/09/20 20:25 Blood - Blood Anaerobic Blood Culture - Final No growth in 5 days. 09/09/20 20:10 Clean Catch Urine [place] Count - Final >100,000 CFU/ML. 09/09/20 20:10 Clean Catch Urine - Final Escherichia Coli Esbl Assessment/ Plan: Nephrology No acute cardiac or pulmonary complaints. No CP or SOB. No acute events overnight. Vitals, medications, blood work and imaging reviewed in the chart. General: Alert, Oriented x3, Cooperative HEENT: Atraumatic Neck: Supple Respiratory: Clear to auscultation bilaterally Cardiovascular: Regular rate/rhythm, Edema Gastrointestinal: Soft and benign, Non-distended, Tenderness Musculoskeletal: No clubbing, No contractures Integumentary: No rashes, No cyanosis Neurological: Normal speech Laboratory Data (last 24 hrs) 09/09/20 20:05: PT 12.1, INR 1.05 09/09/20 20:05: WBC 13.40 H, Hgb 10.7 L, Hct 31.7 L, Plt Count 456 H 09/09/20 20:05: Sodium 126 L, Potassium 3.9, BUN 37 H, Creatinine 3.27 H, Glucose 775 H*, Magnesium 2.2, Total Bilirubin 0.2, AST 8 L, ALT 12, Alkaline Phosphatase 199 H, Lipase 160 Imagings Data: EXAM DESCRIPTION: RAD - Chest Single View - 09/09/2020 8:06 pm CLINICAL HISTORY: SWELLING Chest pain. COMPARISON: No comparisons FINDINGS: Portable technique limits examination quality. Mild interstitial pulmonary edema suspected. The heart is upper limit normal in size with a tortuous thoracic aorta. No displaced fractures. EXAM DESCRIPTION: CT - Stone Protocol - 09/09/2020 8:15 pm CLINICAL HISTORY: Flank pain. HEMATURIA COMPARISON: No comparisons TECHNIQUE: Axial images were obtained without oral or IV contrast. Lack of contrast limits solid organ and vascular assessment. The [id number] spans the entirety of the system partially obscuring uppermost abdomen and lung bases. Coronal reformatted images were obtained and reviewed. All CT scans are performed using dose optimization technique as appropriate and may include automated exposure control or mA/KV adjustment according to patient size. FINDINGS: The lower lung [place] are clear. Imaged portions of the liver and spleen show no suspicious findings on non- contrast imaging. The pancreas and adrenal glands are normal. No pathologic lymphadenopathy in the abdomen or pelvis. Severe bilateral hydroureter and hydronephrosis is present. The urinary bladder is distended and contains air. No obstructing renal calculus seen. No bowel obstruction, free air, free fluid or abscess. Normal appendix noted.Fat containing bilateral inguinal hernias, larger on the right. No significant bony abnormality. IMPRESSION: Severe bilateral hydroureter, hydronephrosis in urinary bladder distention is present. Air is also present in the bladder, which may be related to infection or recent instrumentation. A bladder outlet obstruction is suspected. Conclusions/Impression: A/P: Continue the current POC and Medications other than the changes listed. AM Labs PRN. Recommend daily weight. Please see the orders for complete details. TJ likely due to excessive NSAIDs complicated by urinary obstruction CKD (Baseline CKD is unclear) -No NSAIDs -Continue michel Bladder outlet obstruction with BL hydronephrosis and hydroureter -Continue michel -Follow up with urology Hyponatremia resolved Hypokalemia resolved Hypomagnesemia -Replete with IV mag HTN with tachycardia -Continue Losartan BID LE Edema -Continue HCTZ DM II with CKD -Continue Lantus -Continue RISS Moderate malnutrition -Encourage nutrition Anemia in chronic illness -Monitor H&H Acute E.coli cystitis -Continue Meropenem
[2020-09-16] MEDS: INSULIN GLARGINE 100 UNITS/ML SQ SCH (21:09)
[2020-09-17] MEDS: HYDROMORPHONE HCL 0.5 MG/0.5 ML INJ IV PRN ×2 (00:09→17:00)
[2020-09-17] MEDS: HEPARIN 5000 UNIT/ML 1 ML VIAL SQ SCH ×3 (00:09→17:01)
[2020-09-17 04:11] LABS: Absolute Lymphocytes (CBC) 4.9 K/uL (0.7-4.9); Basophils % 1.1 % (0-1.3); Hematocrit 30.2 % (39.6-49.0); Lymphocytes % 36.9 % (15.3-44.8); MPV 9.3 fL (7.6-11.3); RBC Red Blood Cell Count 3.41 M/uL (4.33-5.43)
[2020-09-17 04:30] LABS: Potassium 3.7 mmol/L (3.5-5.1)
[2020-09-17] MEDS: METOPROLOL TAR 25 MG TAB PO SCH ×2 (05:28→17:02)
[2020-09-17] MEDS ORDERED: POTASSIUM CL SA 10 MEQ TAB PO ONE (06:00)
[2020-09-17] MEDS: INSULIN -REGULAR HUMAN 50 UNIT/0.5 ML ML SQ SCH ×4 (07:30→22:12)
[2020-09-17] MEDS: NICOTINE 14 MG/PAT TD SCH (10:00)
[2020-09-17] MEDS: LOSARTAN POTASSIUM 50 MG TABLET PO SCH ×2 (10:00→22:11)
[2020-09-17] MEDS: OXYBUTYNIN CHLORIDE 5 MG TAB PO SCH ×2 (10:00→22:11)
[2020-09-17] MEDS: hydroCHLOROthiazide 25 MG TAB PO SCH (10:00)
[2020-09-17] MEDS: Meropenem 1 GM/100 ML BAG IV SCH ×2 (10:01→22:11)
[2020-09-17] MEDS ORDERED: LACTULOSE 20 GM/30 ML UCUP PO PRN (12:25)
--- NOTE | 2020-09-17 12:29 | P.PN ---
Subjective Date of Service: 09/17/20 Primary Care Provider: Dr. Esparza Chief Complaint: UTI, TJ, hydronephrosis Subjective: Improving (Nurses report patient had some constipation.) Physical Examination - Vital Signs Temperature: 97.1 F Blood Pressure: 123/63 Pulse: 72 Respirations: 16 Pulse Ox (%): 96 - Studies Medications List Reviewed: Yes Assessment & Plan Discharge Plan: Home Plan to discharge in: 24 Hours Physician Review Additional Text: Physical exam: Patient alert, cooperative. Heart: Regular rate and rhythm Lungs: Clear to auscultation Abdomen: Soft. Pain to the flank improved. Extremities: Good range of motion to the upper and lower extremities Impression: Acute renal failure with bilateral ureteral obstruction, bilateral hydronephrosis, large volume urinary retention status post cystoscopy, bilateral retrograde pyelogram phase, bilateral complicated ureteral stents placement, urethral Herzog catheter exchange UTI, urine culture E. Coli-ESBL Diabetes mellitus type 2 with hyperglycemia Hypertension Tobacco abuse Obesity, BMI 39.9 Plan: Acute renal failure with bilateral ureteral obstruction, bilateral hydronephrosis, large volume urinary retention status post cystoscopy, bilateral retrograde pyelogram phase, bilateral complicated ureteral stents placement, urethral Herzog catheter exchange: Patient had bilateral ureteral stents placed the other day. Continue with pain control. Encourage ambulation. Encourage incentive spirometer. DVT prophylaxis in place. Patient reported some constipation. Will provide a stool softener and medication for constipation. Repeat urine culture obtained. Patient with UTIE. coliESBL. PICC line orde red. Hope to get PICC line done today. Social work to help arrange for hospital arrangements of patient getting IV Invanz 1 g for 14 days as an outpatient. Urology plans to recheck renal ultrasound and MAG3 Lasix renogram in 6 to 8 weeks. This will need to be arranged by the patient. We will have them do that now prior to his discharge. Herzog catheter in place. Renal function improved. Anticipate likely discharge tomorrow with arrangements above. UTI, urine culture E. Coli-ESBL: PICC line to be arranged today. We will arrange for IV Invanz 1 g for 14 days. Recheck culture again today. Diabetes mellitus type 2 with hyperglycemia: Continue Lantus. Continue to adjust Lantus for better diabetic control. We will continue to adjust accordingly. Hypertension: Continue blood pressure medication losartan, hydrochlorothiazide and metoprolol. Blood pressure stable. Tobacco abuse: Continue nicotine patch Obesity, BMI 39.9: Continue with lifestyle modification education. Time Spent Managing Pts Care (In Minutes): 55
--- NOTE | 2020-09-17 14:52 | RAD REPORT ---
EXAM DESCRIPTION: RAD - Chest Single View - 09/17/2020 2:44 pm CLINICAL HISTORY: PICC line placement COMPARISON: Chest Single View dated 09/09/2020 FINDINGS: Portable chest was obtained following placement of a left upper extremity PICC line. The c atheter tip projects over the SVC.
[2020-09-17] MEDS: INSULIN GLARGINE 100 UNITS/ML SQ SCH (22:13)
--- NOTE | 2020-09-17 23:04 | P.PN ---
Date of Service: 09/17/20 Vital Signs Temp Pulse Resp BP Pulse Ox 97.3 F 93 H 16 105/64 93 09/17/20 16:00 09/17/20 17:02 09/17/20 17:30 09/17/20 17:02 09/17/20 17:30 Medications Acetaminophen (Acetaminophen 500 Mg Tab) 500 mg PO Q4HP PRN PRN Reason: Pain scale 2-4 (Mild) Last Admin: 09/10/20 20:05 Dose: 500 mg Documented by: Hydrocodone Bitart/Acetaminophen (Hydrocodone/Apap 10/325 Tab) 1 tab PO Q4H PRN PRN Reason: Pain scale 8-10 (Severe) Last Admin: 09/16/20 09:57 Dose: 1 tab Documented by: Dextrose (D50w 25 Gm/50 Ml Vial) 12.5 gm IV PRN PRN; Protocol PRN Reason: HYPOGLYCEMIA Docusate Sodium (Docusate Na 100 Mg Cap) 100 mg PO DAILY [facility] Glucagon (Glucagon 1 Mg/Vial) 1 mg IM 1X PRN; Protocol PRN Reason: HYPOGLYCEMIA Heparin Sodium (Porcine) (Heparin 5000 Unit/Ml 1 Ml Vial) 5,000 unit SQ Q8HR [facility] Last Admin: 09/17/20 17:01 Dose: 5,000 unit Documented by: Hydralazine HCl (Hydralazine Hcl 20 Mg/Ml Vial) 10 mg IV Q6HP PRN PRN Reason: Titrate to SBP (MUST DEFINE) Last Admin: 09/12/20 00:23 Dose: 10 mg Documented by: Hydrochlorothiazide (Hydrochlorothiazide 25 Mg Tab) 25 mg PO DAILY [facility] Last Admin: 09/17/20 10:00 Dose: 25 mg Documented by: Hydromorphone HCl (Hydromorphone Hcl 0.5 Mg/0.5 Ml Inj) 0.5 mg IV Q6H PRN PRN Reason: Pain scale 8-10 (Severe) Last Admin: 09/17/20 17:00 Dose: 0.5 mg Documented by: Meropenem (Merrem 1 Gm/100 Ml Ns Ivpb) 1 gm in 100 mls @ 100 mls/hr IV BID [facility] Last Admin: 09/17/20 22:11 Dose: 100 mls Documented by: Insulin Glargine (Insulin Glargine 100 Units/Ml) 50 units SQ BEDTIME [facility] Last Admin: 09/17/20 22:13 Dose: 50 units Documented by: Insulin Human Regular (Insulin -Regular Human 50 Unit/0.5 Ml Ml) 0 unit SQ [facility]; Protocol Last Admin: 09/17/20 22:12 Dose: 10 unit Documented by: Lactulose (Lactulose 20 Gm/30 Ml Ucup) 10 gm PO BID PRN PRN Reason: CONSTIPATION Losartan Potassium (Losartan Potassium 50 Mg Tablet) 50 mg PO BID [facility] Last Admin: 09/17/20 22:11 Dose: 50 mg Documented by: Metoprolol Tartrate (Metoprolol Tar 25 Mg Tab) 25 mg PO BID 6AM 6PM [facility] Last Admin: 09/17/20 17:02 Dose: 25 mg Documented by: Nicotine (Nicotine 14 Mg/Pat) 14 mg TD DAILY [facility] Last Admin: 09/17/20 10:00 Dose: 14 mg Documented by: Ondansetron HCl (Ondansetron 4 Mg/2 Ml Vial) 4 mg IV Q6HP PRN PRN Reason: NAUSEA / VOMITING Last Admin: 09/10/20 03:30 Dose: 4 mg Documented by: Oxybutynin Chloride (Oxybutynin Chloride 5 Mg Tab) 5 mg PO BID [facility] Last Admin: 09/17/20 22:11 Dose: 5 mg Documented by: Sodium Chloride (Flush Normal Saline 10 Ml) 10 ml IV BID [facility] Last Admin: 09/17/20 22:13 Dose: 10 ml Documented by: Tramadol HCl (Tramadol Hcl 50 Mg Tab) 50 mg PO TID PRN PRN Reason: Pain scale 2-4 (Mild) Microbiology Results 09/09/20 20:40 Blood - Blood Aerobic Blood Culture - Final No growth in 5 days. 09/09/20 20:40 Blood - Blood Anaerobic Blood Culture - Final No growth in 5 days. 09/09/20 20:25 Blood - Blood Aerobic Blood Culture - Final No growth in 5 days. 09/09/20 20:25 Blood - Blood Anaerobic Blood Culture - Final No growth in 5 days. 09/09/20 20:10 Clean Catch Urine [place] Count - Final >100,000 CFU/ML. 09/09/20 20:10 Clean Catch Urine - Final Escherichia Coli Esbl Assessment/ Plan: Nephrology No acute cardiac or pulmonary complaints. No CP or SOB. No acute events overnight. Vitals, medications, blood work and imaging reviewed in the chart. General: Alert, Oriented x3, Cooperative HEENT: Atraumatic Neck: Supple Respiratory: Clear to auscultation bilaterally Cardiovascular: Regular rate/rhythm, No edema Gastrointestinal: Soft and benign, Non-distended, Tenderness Musculoskeletal: No clubbing, No contractures Integumentary: No rashes, No cyanosis Neurological: Normal speech Laboratory Data (last 24 hrs) 09/09/20 20:05: PT 12.1, INR 1.05 09/09/20 20:05: WBC 13.40 H, Hgb 10.7 L, Hct 31.7 L, Plt Count 456 H 09/09/20 20:05: Sodium 126 L, Potassium 3.9, BUN 37 H, Creatinine 3.27 H, Glucose 775 H*, Magnesium 2.2, Total Bilirubin 0.2, AST 8 L, ALT 12, Alkaline Phosphatase 199 H, Lipase 160 Imagings Data: EXAM DESCRIPTION: RAD - Chest Single View - 09/09/2020 8:06 pm CLINICAL HISTORY: SWELLING Chest pain. COMPARISON: No comparisons FINDINGS: Portable technique limits examination quality. Mild interstitial pulmonary edema suspected. The heart is upper limit normal in size with a tortuous thoracic aorta. No displaced fractures. EXAM DESCRIPTION: CT - Stone Protocol - 09/09/2020 8:15 pm CLINICAL HISTORY: Flank pain. HEMATURIA COMPARISON: No comparisons TECHNIQUE: Axial images were obtained without oral or IV contrast. Lack of contrast limits solid organ and vascular assessment. The [id number] spans the entirety of the system partially obscuring uppermost abdomen and lung bases. Coronal reformatted images were obtained and reviewed. All CT scans are performed using dose optimization technique as appropriate and may include automated exposure control or mA/KV adjustment according to patient size. FINDINGS: The lower lung [place] are clear. Imaged portions of the liver and spleen show no suspicious findings on non- contrast imaging. The pancreas and adrenal glands are normal. No pathologic lymphadenopathy in the abdomen or pelvis. Severe bilateral hydroureter and hydronephrosis is present. The urinary bladder is distended and contains air. No obstructing renal calculus seen. No bowel obstruction, free air, free fluid or abscess. Normal appendix noted.Fat containing bilateral inguinal hernias, larger on the right. No significant bony abnormality. IMPRESSION: Severe bilateral hydroureter, hydronephrosis in urinary bladder distention is present. Air is also present in the bladder, which may be related to infection or recent instrumentation. A bladder outlet obstruction is suspected. Conclusions/Impression: A/P: Continue the current POC and Medications other than the changes listed. AM Labs PRN. Recommend daily weight. Please see the orders for complete details. TJ likely due to excessive NSAIDs complicated by urinary obstruction CKD (Baseline CKD is unclear) -No NSAIDs -Continue michel Bladder outlet obstruction with BL hydronephrosis and hydroureter -Continue michel -Follow up with urology Hyponatremia resolved Hypokalemia resolved Hypomagnesemia -Replete with IV mag HTN with tachycardia -Continue Losartan BID LE Edema -Continue HCTZ DM II with CKD -Continue Lantus -Continue RISS Moderate malnutrition -Encourage nutrition Anemia in chronic illness -Monitor H&H Acute E.coli cystitis -Continue Meropenem
[2020-09-18] MEDS: HEPARIN 5000 UNIT/ML 1 ML VIAL SQ SCH ×2 (01:15→09:07)
[2020-09-18] MEDS: HYDROMORPHONE HCL 0.5 MG/0.5 ML INJ IV PRN (04:51)
[2020-09-18] MEDS: METOPROLOL TAR 25 MG TAB PO SCH (04:52)
[2020-09-18 05:17] LABS: Absolute Lymphocytes (CBC) 2.9 K/uL (0.7-4.9); Basophils % 1.4 % (0-1.3); Hematocrit 28.7 % (39.6-49.0); Lymphocytes % 26.6 % (15.3-44.8); MPV 9.5 fL (7.6-11.3); RBC Red Blood Cell Count 3.24 M/uL (4.33-5.43)
[2020-09-18 05:31] LABS: Magnesium 1.9 mg/dL (1.8-2.4); Potassium 3.9 mmol/L (3.5-5.1)
--- NOTE | 2020-09-18 08:30 | P.DS ---
Admission Date: 09/09/20 Discharge Date: 09/18/20 Primary Care Provider: Dr. Esparza Disposition: ROUTINE DISCHARGE Discharge Condition: GOOD Reason for Admission: UTI, TJ, hydronephrosis Consultations: Urology-Dr. Acosta Nephrology-Dr. Tobin Procedures: COVID: Negative CT scan: FINDINGS: The lower lung [place] are clear. Imaged portions of the liver and spleen show no suspicious findings on non- contrast imaging. The pancreas and adrenal glands are normal. No pathologic lymphadenopathy in the abdomen or pelvis. Severe bilateral hydroureter and hydronephrosis is present. The urinary bladder is distended and contains air. No obstructing renal calculus seen. No bowel obstruction, free air, free fluid or abscess. Normal appendix noted.Fat containing bilateral inguinal hernias, larger on the right. No significant bony abnormality. IMPRESSION: Severe bilateral hydroureter, hydronephrosis in urinary bladder distention is present. Air is also present in the bladder, which may be related to infection or recent instrumentation. A bladder outlet obstruction is suspected. Renal US: COMPARISON: September 09, 2020 cat scan FINDINGS: The right kidney measures 13 cm with a normal echotexture. The left kidney measures 13 cm with a normal echotexture. Marked bilateral hydronephrosis is present. A Herzog catheter is present within a collapsed bladder IMPRESSION: Marked bilateral hydronephrosis ECHO: MEASUREMENTS (cm) DIASTOLIC (NORMALS) SYSTOLIC (NORMALS) IVSd 1.2 (0.6-1.2) LA Diam 2.8 (1.9-4.0) LVEF 56% LVIDd 3.5 (3.5-5.7) LVIDs 2.5 (2.0-3.5) %FS 28% LVPWd 1.2 (0.6-1.2) Ao Diam 3.2 (2.0-3.7) 2 DIMENSIONAL ASSESSMENT: RIGHT ATRIUM: LEFT ATRIUM: RIGHT VENTRICLE: LEFT VENTRICLE: TRICUSPID VALVE: MITRAL VALVE: PULMONIC VALVE: AORTIC VALVE: PERICARDIAL EFFUSION: AORTIC ROOT: LEFT VENTRICULAR WALL MOTION: DOPPLER/COLOR FLOW: COMMENTS: NORMAL 2-DIMENSIONAL ECHOCARDIOGRAM. NORMAL WALL MOTION ABNORMALITY. NO EFFUSION. Follow up Renal US: COMPARISON: September 12, 2020 FINDINGS: The right kidney measures 13 cm with a normal echotexture. The left kidney measures 13 cm with a normal echotexture. Marked bilateral hydronephrosis is without significant change. The bladder is collapsed presumably secondary to a Herzog catheter in place IMPRESSION: No significant change in marked bilateral hydronephrosis MAG3 Renogram: COMPARISON: Renal Ultrasound-Complete dated 09/14/2020; Stone Protocol dated 09/09/2020 TECHNIQUE: Following intravenous administration of 10.6 mCi Tc99m MAG-3, posterior dynamic angiogram and sequential static images of the kidneys were obtained. 40 mg Lasix was administered intravenously 10 minutes into the study. Static post-void imaging was also performed. FINDINGS: Severe bilateral hydronephrosis and hydroureter is present. Symmetric flow seen to both kidneys. The differential split function demonstrates 62% left renal function and 32% right renal function. Over time, the amount of radiotracer in both collecting systems is seen to increase gradually. Following the administration of Lasix, no significant diuresis is appreciated. This pattern suggests an anatomic obstruction rather than functional in nature. IMPRESSION: Significant bilateral hydronephrosis and hydroureter is present likely attributable to anatomic obstruction given the lack of diuresis with Lasix. Surgery: Date 09/15/2020 Surgeon: DIALLO ACOSTA Preoperative Diagnoses: 1. Bilateral ureteral obstruction. 2. Bilateral hydronephrosis. 3. Large volume urinary retention. 4. Acute on Chronic Kidney Injury Postoperative Diagnoses: 1. Bilateral ureteral obstruction. 2. Bilateral hydronephrosis. 3. Large volume urinary retention. 4. Acute on Chronic Kidney Injury 5. Possible primary bladder neck dysfunction. Procedures: 1. Cystoscopy. 2. Bilateral retrograde pyelographies. 3. Bilateral complicated ureteral stents placed. 4. Urethral Herzog catheter exchange. Medical Problem List: Acute renal failure with bilateral ureteral obstruction, bilateral hydronephrosis, large volume urinary retention status post cystoscopy, bilateral retrograde pyelogram phase, bilateral complicated ureteral stents placement, urethral Herzog catheter exchange UTI, urine culture E. Coli-ESBL Diabetes mellitus type 2 with hyperglycemia Hypertension Tobacco abuse Obesity, BMI 39.9 Brief History of Present Illness: 40 yo splenic male with history of diabetes, hypertension. 2 weeks ago patient started new medication for diabetes. He began to have hematuria after 3 to 4 days. He was seen at [facility]. He was told that he had a severe UTI. Patient required IV antibiotic therapy but the patient left AGAINST MEDICAL ADVICE. He was not taking any medications for this. He continued to have night sweats, bilateral flank pain, incontinence and difficulty walking. He also reported some constipation. Patient was seen and evaluated at the hospital. Patient found to have severe bilateral hydronephrosis with urinary bladder distention. Catheter placed. Patient admitted for further evaluation and treatment. Hospital Course: Patient presented with acute renal failure with bilateral ureteral obstruction, bilateral hydronephrosis, large volume urinary retention. Patient had been seen at another facility due to severe UTI. Patient required IV antibiotic therapy at that time. Patient refused and left AGAINST MEDICAL ADVICE. Patient came to our facility with worsening symptoms. Patient was seen and evaluated by urology and nephrology. Repeat ultrasound showed bilateral hydronephrosis. Patient was found to have UTI with urine culture positive for E. coliESBL. Patient was stabilized with IV antibiotic therapy. Urology performed cystoscopy, bilateral retrograde pyelogram phase, bilateral complicated ureteral stent placement, and urethral Herzog catheter exchange. Patient has done well postsurgically. Renal function has improved. PICC line was placed in preparation for outpatient IV antibiotic therapy. At discharge arrangements for IV Invanz 1 g for 14 days will be arranged through the help of the hospital as an outpatient. Recommend to recheck urine culture after treatment to monitor resolution. Also made arrangements for the patient to follow-up with a PCP to establish care. This will be PCPDr. Hazel. He will follow antibiotics and monitor lab closely. Recommend to recheck labBMP at least every week while on antibiotics. Patient will continue with Herzog catheter. Patient will need to follow-up with urology in 2 to 4 weeks. At around 6 to 8 weeks urology will plan for repeat renal ultrasound and possibly MAG3 Lasix renogram. This will help determine and evaluate the hydronephrosis. At that time urology will determine to remove the ureteral stents. Education address in detail. Patient understands the importance of follow-up. Patient plans to follow-up with plan of care. Patient will need to follow-up with nephrology in 1 to 2 weeks to follow-up hospitalization. As stated above recommend to recheck labBMP at least every week to monitor his renal function back to baseline. Patient with diabetes mellitus type 2 with hyperglycemia. Hemoglobin A1c greater than 14. Patient was placed on Lantus for better control. This seems to be improved. At discharge patient will need to monitor his blood sugars at least twice daily. Recommend to maintain blood sugar less than 140 fasting and less than 200 after meals. At discharge patient will continue with Lantus 50 units subcu every bedtime. Patient will also be provided NovoLog mild sliding scale. If blood sugars remain above 200 patient may increase Lantus by 1 to 2 units for better control. Recommend follow-up with PCP to further monitor and adjust medication. Education on diabetes, insulin will be provided. Patient with hypertension. Medications were adjusted during the course of his stay. At discharge patient will continue with losartan 50 mg 1 pill twice daily, metoprolol 25 mg 1 pill twice daily, and hydrochlorothiazide 25 mg daily. Recommend to monitor blood pressure at least once daily. Recommend to maintain blood pressure less than 130/80. Further adjustment can be done by his PCP or nephrology. Patient with tobacco abuse. Tobacco cessation addressed in detail. Patient will be provided nicotine patch to help with cessation. Patient with obesity, BMI 39.9. Lifestyle modification education provided. Patient will also be provided a limited supply of tramadol 50 mg 1 pill 3 times a day as needed for pain. Patient is not to use any nonsteroidal anti- inflammatories like ibuprofen or Motrin in the future. This may have contributed to his acute renal failure and hydronephrosis. Patient may take Tylenol as needed for pain as well. Patient will continue with folic acid daily and docusate as a stool softener. Vital Signs/Physical Exam: Temp Pulse Resp BP Pulse Ox 97.6 F 83 17 125/79 96 09/18/20 04:00 09/18/20 04:52 09/18/20 05:21 09/18/20 04:52 09/18/20 05:21 General: Alert, In no apparent distress, Oriented x3, Cooperative HEENT: Atraumatic Neck: Supple Respiratory: Clear to auscultation bilaterally, Normal air movement Cardiovascular: Normal pulses, Regular rate/rhythm Gastrointestinal: Normal bowel sounds, Soft and benign, Non-distended, No tenderness, No masses, No rebound, No guarding Musculoskeletal: No tenderness, No warmth Integumentary: No tenderness/swelling, No erythema Neurological: Normal speech, Normal strength at 5/5 x4 extr, Normal tone, Normal affect External genitalia: Other (Herzog catheter in place) Laboratory Data at Discharge: WBC 11.10 K/uL (4.3-10.9) H D 09/18/20 04:25 Hgb 9.7 g/dL (13.6-17.9) L 09/18/20 04:25 Hct 28.7 % (39.6-49.0) L 09/18/20 04:25 Plt Count 330 K/uL (152-406) 09/18/20 04:25 PT 12.1 SECONDS (9.5-12.5) 09/09/20 20:05 INR 1.05 09/09/20 20:05 Sodium 138 mmol/L (136-145) 09/18/20 04:25 Potassium 3.9 mmol/L (3.5-5.1) 09/18/20 04:25 BUN 29 mg/dL (7-18) H 09/18/20 04:25 Creatinine 1.67 mg/dL (0.55-1.3) H 09/18/20 04:25 Glucose 255 mg/dL (74-106) H 09/18/20 04:25 Uric Acid 7.7 mg/dL (3.5-7.2) H 09/10/20 05:37 Phosphorus 3.7 mg/dL (2.5-4.9) 09/13/20 03:53 Magnesium 1.9 mg/dL (1.8-2.4) 09/18/20 04:25 Total Bilirubin 0.2 mg/dL (0.2-1.0) 09/13/20 03:53 AST 9 U/L (15-37) L 09/13/20 03:53 ALT 10 U/L (12-78) L 09/13/20 03:53 Alkaline Phosphatase 96 U/L (45-117) 09/13/20 03:53 Triglycerides 553 mg/dL (<150) H 09/10/20 05:05 Cholesterol 96 mg/dL (<200) 09/10/20 05:05 LDL Cholesterol Direct 29 mg/dL (100-129) L 09/10/20 05:05 HDL Cholesterol 20 mg/dL (40-60) L 09/10/20 05:05 Cholesterol/HDL Ratio 4.80 09/10/20 05:05 Lipase 160 U/L (73-393) 09/09/20 20:05 Home Medications: Docusate [Colace Cap*] 100 mg PO DAILY #30 cap 09/18/20 Folic Acid 1 mg PO DAILY #90 tablet 09/18/20 Insulin Aspart [Novolog Flexpen] See Protocol SQ SEECOM #1 box 09/18/20 Insulin Glargine Human [Lantus*] 50 units SQ BEDTIME #1 vial 09/18/20 Losartan Potassium [Cozaar*] 50 mg PO BID #60 tablet 09/18/20 Metoprolol Tartrate [Lopressor*] 25 mg PO BID 6AM 6PM #60 tab 09/18/20 Nicotine [Nicoderm*] 14 mg TD DAILY #30 patch.td24 09/18/20 Oxybutynin Chloride [Ditropan*] 5 mg PO BID #60 tab 09/18/20 hydroCHLOROthiazide [Hydrochlorothiazide] 25 mg PO DAILY #30 tablet 09/18/20 traMADol HCL [Ultram*] 50 mg PO TID PRN #10 tab 09/18/20 New Medications: Docusate [Colace Cap*] 100 mg PO DAILY #30 cap Losartan Potassium [Cozaar*] 50 mg PO BID #60 tablet Oxybutynin Chloride [Ditropan*] 5 mg PO BID #60 tab Folic Acid 1 mg PO DAILY #90 tablet hydroCHLOROthiazide [Hydrochlorothiazide] 25 mg PO DAILY #30 tablet Insulin Glargine Human [Lantus*] 50 units SQ BEDTIME #1 vial Metoprolol Tartrate [Lopressor*] 25 mg PO BID 6AM 6PM #60 tab Nicotine [Nicoderm*] 14 mg TD DAILY #30 patch.td24 Insulin Aspart [Novolog Flexpen] See Protocol SQ SEECOM #1 box traMADol HCL [Ultram*] 50 mg PO TID PRN #10 tab PRN Reason: Pain Scale 2-4 (Mild) Physician Discharge Instructions: Patient presented with acute renal failure with bilateral ureteral obstruction, bilateral hydronephrosis, large volume urinary retention. Patient had been seen at another facility due to severe UTI. Patient required IV antibiotic therapy at that time. Patient refused and left AGAINST MEDICAL ADVICE. Patient came to our facility with worsening symptoms. Patient was seen and evaluated by urology and nephrology. Repeat ultrasound showed bilateral hydronephrosis. Patient was found to have UTI with urine culture positive for E. coliESBL. Patient was stabilized with IV antibiotic therapy. Urology performed cystoscopy, bilateral retrograde pyelogram phase, bilateral complicated ureteral stent placement, and urethral Herzog catheter exchange. Patient has done well postsurgically. Renal function has improved. PICC line was placed in preparation for outpatient IV antibiotic therapy. At discharge arrangements for IV Invanz 1 g for 14 days will be arranged through the help of the hospital as an outpatient. Recommend to recheck urine culture after treatment to monitor resolution. Also made arrangements for the patient to follow-up with a PCP to establish care. This will be PCPDr. Hazel. He will follow antibiotics and monitor lab closely. Recommend to recheck labBMP at least every week while on antibiotics. Patient will continue with Herzog catheter. Patient will need to follow-up with urology in 2 to 4 weeks. At around 6 to 8 weeks urology will plan for repeat renal ultrasound and possibly MAG3 Lasix renogram. This will help determine and evaluate the hydronephrosis. At that time urology will determine to remove the ureteral stents. Education address in detail. Patient understands the importance of follow-up. Patient plans to follow-up with plan of care. Patient will need to follow-up with nephrology in 1 to 2 weeks to follow-up hospitalization. As stated above recommend to recheck labBMP at least every week to monitor his renal function back to baseline. Patient with diabetes mellitus type 2 with hyperglycemia. Hemoglobin A1c greater than 14. Patient was placed on Lantus for better control. This seems to be improved. At discharge patient will need to monitor his blood sugars at least twice daily. Recommend to maintain blood sugar less than 140 fasting and less than 200 after meals. At discharge patient will continue with Lantus 50 units subcu every bedtime. Patient will also be provided NovoLog mild sliding scale. If blood sugars remain above 200 patient may increase Lantus by 1 to 2 units for better control. Recommend follow-up with PCP to further monitor and adjust medication. Education on diabetes, insulin will be provided. Patient with hypertension. Medications were adjusted during the course of his stay. At discharge patient will continue with losartan 50 mg 1 pill twice daily, metoprolol 25 mg 1 pill twice daily, and hydrochlorothiazide 25 mg daily. Recommend to monitor blood pressure at least once daily. Recommend to maint ain blood pressure less than 130/80. Further adjustment can be done by his PCP or nephrology. Patient with tobacco abuse. Tobacco cessation addressed in detail. Patient will be provided nicotine patch to help with cessation. Patient with obesity, BMI 39.9. Lifestyle modification education provided. Patient will also be provided a limited supply of tramadol 50 mg 1 pill 3 times a day as needed for pain. Patient is not to use any nonsteroidal anti- inflammatories like ibuprofen or Motrin in the future. This may have contributed to his acute renal failure and hydronephrosis. Patient may take Tylenol as needed for pain as well. Patient will continue with folic acid daily and docusate as a stool softener. Diet: ADA Activity: Ad yehuda Followup: NONE,NONE [Primary Care Provider] - Time spent managing pt's care (in minutes): 55
[2020-09-18] MEDS ORDERED: DOCUSATE NA 100 MG CAP PO SCH (09:00)
[2020-09-18] MEDS ORDERED: POTASSIUM CL SA 10 MEQ TAB PO ONE (09:00)
[2020-09-18 09:03] VITALS: BP 127/64; TEMP 97.2
[2020-09-18] MEDS: OXYBUTYNIN CHLORIDE 5 MG TAB PO SCH (09:05)
[2020-09-18] MEDS: hydroCHLOROthiazide 25 MG TAB PO SCH (09:05)
[2020-09-18] MEDS: INSULIN -REGULAR HUMAN 50 UNIT/0.5 ML ML SQ SCH (09:06)
[2020-09-18] MEDS: NICOTINE 14 MG/PAT TD SCH (09:07)
[2020-09-18] MEDS: LOSARTAN POTASSIUM 50 MG TABLET PO SCH (09:07)
[2020-09-18 09:41] VITALS: O2SAT 97
[2020-09-18] MEDS: Meropenem 1 GM/100 ML BAG IV SCH (10:01)
--- NOTE | 2020-09-18 20:58 | P.PN ---
Date of Service: 09/18/20 Vital Signs Temp Pulse Resp BP Pulse Ox 97.2 F 74 18 127/64 97 09/18/20 08:00 09/18/20 08:00 09/18/20 08:00 09/18/20 08:00 09/18/20 08:00 Microbiology Results 09/09/20 20:40 Blood - Blood Aerobic Blood Culture - Final No growth in 5 days. 09/09/20 20:40 Blood - Blood Anaerobic Blood Culture - Final No growth in 5 days. 09/09/20 20:25 Blood - Blood Aerobic Blood Culture - Final No growth in 5 days. 09/09/20 20:25 Blood - Blood Anaerobic Blood Culture - Final No growth in 5 days. 09/09/20 20:10 Clean Catch Urine [place] Count - Final >100,000 CFU/ML. 09/09/20 20:10 Clean Catch Urine - Final Escherichia Coli Esbl Assessment/ Plan: Nephrology No acute cardiac or pulmonary complaints. No CP or SOB. No acute events overnight. Vitals, medications, blood work and imaging reviewed in the chart. General: Alert, Oriented x3, Cooperative HEENT: Atraumatic Neck: Supple Respiratory: Clear to auscultation bilaterally Cardiovascular: Regular rate/rhythm, No edema Gastrointestinal: Soft and benign, Non-distended, Tenderness Musculoskeletal: No clubbing, No contractures Integumentary: No rashes, No cyanosis Neurological: Normal speech Laboratory Data (last 24 hrs) 09/09/20 20:05: PT 12.1, INR 1.05 09/09/20 20:05: WBC 13.40 H, Hgb 10.7 L, Hct 31.7 L, Plt Count 456 H 09/09/20 20:05: Sodium 126 L, Potassium 3.9, BUN 37 H, Creatinine 3.27 H, Glucose 775 H*, Magnesium 2.2, Total Bilirubin 0.2, AST 8 L, ALT 12, Alkaline Phosphatase 199 H, Lipase 160 Imagings Data: EXAM DESCRIPTION: RAD - Chest Single View - 09/09/2020 8:06 pm CLINICAL HISTORY: SWELLING Chest pain. COMPARISON: No comparisons FINDINGS: Portable technique limits examination quality. Mild interstitial pulmonary edema suspected. The heart is upper limit normal in size with a tortuous thoracic aorta. No displaced fractures. EXAM DESCRIPTION: CT - Stone Protocol - 09/09/2020 8:15 pm CLINICAL HISTORY: Flank pain. HEMATURIA COMPARISON: No comparisons TECHNIQUE: Axial images were obtained without oral or IV contrast. Lack of contrast limits solid organ and vascular assessment. The [id number] spans the entirety of the system partially obscuring uppermost abdomen and lung bases. Coronal reformatted images were obtained and reviewed. All CT scans are performed using dose optimization technique as appropriate and may include automated exposure control or mA/KV adjustment according to patient size. FINDINGS: The lower lung [place] are clear. Imaged portions of the liver and spleen show no suspicious findings on non- contrast imaging. The pancreas and adrenal glands are normal. No pathologic lymphadenopathy in the abdomen or pelvis. Severe bilateral hydroureter and hydronephrosis is present. The urinary bladder is distended and contains air. No obstructing renal calculus seen. No bowel obstruction, free air, free fluid or abscess. Normal appendix noted.Fat containing bilateral inguinal hernias, larger on the right. No significant bony abnormality. IMPRESSION: Severe bilateral hydroureter, hydronephrosis in urinary bladder distention is present. Air is also present in the bladder, which may be related to infection or recent instrumentation. A bladder outlet obstruction is suspected. Conclusions/Impression: A/P: Continue the current POC and Medications other than the changes listed. AM Labs PRN. Recommend daily weight. Please see the orders for complete details. TJ likely due to excessive NSAIDs complicated by urinary obstruction CKD (Baseline CKD is unclear) -No NSAIDs -Continue michel Bladder outlet obstruction with BL hydronephrosis and hydroureter -Continue michel -Follow up with urology Hyponatremia resolved Hypokalemia resolved Hypomagnesemia -Replete with IV mag HTN with tachycardia -Continue Losartan BID LE Edema -Continue HCTZ DM II with CKD -Continue Lantus -Continue RISS Moderate malnutrition -Encourage nutrition Anemia in chronic illness -Monitor H&H Acute E.coli cystitis -Continue Meropenem Case reviewed with Dr. Miguel
--- NOTE | 2020-09-23 09:50 | P.PN ---
Date of Service: 09/23/20 Subjective Received call from same-day surgery as patient unable to afford his Lantus. Called in insulin 70/30 40 units in the morning and 20 units at night. Patient also needs glucometer and supplies to check his blood sugars and will approve nursing staff in same-day surgery call him this in as well.
--- NOTE | 2020-10-02 14:14 | P.PN ---
Subjective Date of Service: 10/02/20 Primary Care Provider: Dr. Esparza Chief Complaint: UTI, TJ, hydronephrosis Subjective: Other (Patient was seen in day surgery. Today is his last day of IV Invanz. Patient doing well at this time. Patient following up with urology. P atient with good urine stream. No fever, chills.) Physical Examination - Vital Signs Temperature: 97.2 F Blood Pressure: 127/64 Pulse: 74 Respirations: 18 Pulse Ox (%): 97 - Physical Exam General: Alert, In no apparent distress, Oriented x3, Cooperative HEENT: Atraumatic Neck: Supple Respiratory: Clear to auscultation bilaterally, Normal air movement Cardiovascular: Normal pulses, Regular rate/rhythm Gastrointestinal: Normal bowel sounds, No ascites, No tenderness, No masses, No rebound, No guarding Integumentary: No tenderness/swelling Neurological: Normal speech, Normal strength at 5/5 x4 extr, Normal tone, Normal affect - Studies Medications List Reviewed: Yes Assessment & Plan Discharge Plan: Home Physician Review Additional Text: Impression: Acute renal failure with bilateral ureteral obstruction, bilateral hydronephrosis, large volume urinary retention status post cystoscopy, bilateral retrograde pyelogram phase, bilateral complicated ureteral stents placement, urethral Herzog catheter exchange UTI, urine culture E. Coli-ESBL Diabetes mellitus type 2 with hyperglycemia Hypertension Tobacco abuse Obesity, BMI 39.9 Plan: Acute renal failure with bilateral ureteral obstruction, bilateral hydronephrosis, large volume urinary retention status post cystoscopy, bilateral retrograde pyelogram phase, bilateral complicated ureteral stents placement, urethral Herzog catheter exchange: Patient was seen in day surgery. Today is his last day of Invanz. He has completed 14 days treatment of this. Recent urine culture was negative. Case discussed with urology. Patient will follow up with urology later today. Patient with good urinary stream. Urology plans to recheck renal ultrasound to evaluate for hydronephrosis and the possibility of removal of stents. Prior to discharge from day surgery PICC line will be remove d. Patient will continue with follow-up care with urology. UTI, urine culture E. Coli-ESBL: PICC line will be removed. Patient has completed IV Invanz for 14 days. Diabetes mellitus type 2 with hyperglycemia: Continue with diabetic regimen for diabetic control. Patient is following up with PCP to further address. Hypertension: Continue blood pressure medication losartan, hydrochlorothiazide and metoprolol. Blood pressure stable. Tobacco abuse: Continue nicotine patch Obesity, BMI 39.9: Continue with lifestyle modification education. Time Spent Managing Pts Care (In Minutes): 30
== END 2020-09-18 11:49 | disposition home or self-care (01) | DRG 660 ==
LOC: ER 18:28 → ERHOLD 23:06 → 4TH 09-10 17:37
PROVIDERS: ADMIT Hospitalist; ATTEND Family Medicine
PROC: BT141ZZ Fluoroscopy of Kidneys, Ureters and Bladder using Low Osmolar Contrast (ICD-10-PCS; 2020-09-15)
PROC: 0T788DZ Dilation of Bilateral Ureters with Intraluminal Device, Via Natural or Artificial Opening Endoscopic (ICD-10-PCS; principal; 2020-09-15 15:00)
PROC: 02HV33Z Insertion of Infusion Device into Superior Vena Cava, Percutaneous Approach (ICD-10-PCS; 2020-09-17)
DX: N13.6 Pyonephrosis (principal); E87.1 Hypo-osmolality and hyponatremia; E44.0 Moderate protein-calorie malnutrition; N30.00 Acute cystitis without hematuria; N13.8 Other obstructive and reflux uropathy; Z16.12 Extended spectrum beta lactamase (ESBL) resistance; N17.9 Acute kidney failure, unspecified; I12.9 Hypertensive chronic kidney disease with stage 1 through stage 4 chronic kidney disease, or unspecified chronic kidney disease; N18.9 Chronic kidney disease, unspecified; E11.22 Type 2 diabetes mellitus with diabetic chronic kidney disease; E11.40 Type 2 diabetes mellitus with diabetic neuropathy, unspecified; E11.65 Type 2 diabetes mellitus with hyperglycemia; D63.8 Anemia in other chronic diseases classified elsewhere; E87.6 Hypokalemia; E83.42 Hypomagnesemia; K59.00 Constipation, unspecified; E87.8 Other disorders of electrolyte and fluid balance, not elsewhere classified; F17.210 Nicotine dependence, cigarettes, uncomplicated; E66.9 Obesity, unspecified; B96.20 Unspecified Escherichia coli [E. coli] as the cause of diseases classified elsewhere; R33.9 Retention of urine, unspecified; R60.9 Edema, unspecified; R00.0 Tachycardia, unspecified; Z68.39 Body mass index [BMI] 39.0-39.9, adult; Z20.822 Contact with and (suspected) exposure to COVID-19; Z79.4 Long term (current) use of insulin
CPT/HCPCS: 36415; 36569; 51600; 71045; 74176; 74430; 76377; 76770; 78708; 80048; 80053; 80061; 80076; 81003; 81015; 82550; 82947; 83036; 83605; 83690; 83735; 83880; 84100; 84439; 84443; 84484; 84550; 85025; 85610; 87040; 87077; 87086; 87088; 87186; 93005; 93306; 94760; 96365; 96366; 96367; 96372; 96375; 99285; A9562; J0360; J0696; J1100; J1170; J1644; J1815; J1940; J2185; J2270; J2405; J2704; J3010; J3475; J3480; J7030; U0003

== ENCOUNTER 2020-10-29 15:45 | Inpatient (IN) | payer SELFPAY ==
[2020-10-29] MEDS ORDERED: ONDANSETRON 4 MG/2 ML VIAL ONE (16:51)
[2020-10-29] MEDS ORDERED: MORPHINE 4 MG/ML SYR ONE ×2 (16:51→19:56)
[2020-10-29 17:14] LABS: Urine Blood 2+ (Negative); Urine Glucose 2+ (Negative); Urine Protein 2+ (Negative); Urine pH 5.5 (5.0-7.0)
[2020-10-29 17:32] LABS: Absolute Lymphocytes (CBC) 2.5 K/uL (0.7-4.9); Basophils % 0.5 % (0-1.3); Hematocrit 35.5 % (39.6-49.0); MPV 8.5 fL (7.6-11.3); RBC Red Blood Cell Count 4.05 M/uL (4.33-5.43)
[2020-10-29 18:08] LABS: ALT/SGPT 11 U/L (12-78); AST/SGOT 5 U/L (15-37); Alkaline Phosphatase 170 U/L (45-117); BUN Blood Urea Nitrogen 50 mg/dL (7-18); Bicarbonate 22 mmol/L (21-32); Bilirubin Direct < 0.1 mg/dL (0-0.2); Bilirubin Total 0.3 mg/dL (0.2-1.0); Lipase 154 U/L (73-393); Potassium 4.2 mmol/L (3.5-5.1); Protein, Total 8.4 g/dL (6.4-8.2); Sodium Level 129 mmol/L (136-145)
[2020-10-29 18:12] LABS: Glucose Level 578 mg/dL (74-106)
--- NOTE | 2020-10-29 19:26 | RAD REPORT ---
EXAM DESCRIPTION: CT - Stone Protocol - 10/29/2020 7:06 pm CLINICAL HISTORY: Flank pain. FLANK PAIN COMPARISON: Stone Protocol dated 09/09/2020; Kidney Imag W/Flow F W dated 09/15/2020; Chest Single Vie w dated 09/17/2020; Cystography dated 09/15/2020 TECHNIQUE: Axial images were obtained without oral or IV contrast. Lack of contrast limits solid org an and vascular assessment. The [id number] spans the entirety of the system partially obscuring uppermost abdomen and lung bases. Coronal reformatted images were obtained and reviewed. All CT scans are performed using dose optimization technique as appropriate and may include automated exposure control or mA/KV adjustment according to patient size. FINDINGS: The lower lung austin are clear. Imaged portions of the liver and spleen show no suspicious findings on non-contrast imaging. The panc reas and adrenal glands are normal. No pathologic lymphadenopathy in the abdomen or pelvis. Bilateral double-J stents are in place. The proximal and distal aspects of both stents are in expecte d positioning. Mild caliectasis of the upper pole moieties bilaterally. Herzog catheter is present wit hin the urinary bladder. Thickening of the bladder wall is also seen. Mildly prominent lymph nodes are evident in the pelvis including the perirectal fat, measuring up to 11 mm. Several mildly enlarged lymph nodes are also seen along both iliac chain the periaortic region on the left measuring 21 mm. No bowel obstruction, free air, free fluid or abscess. Normal appendix noted. No significant bony abnormality. Fat containing bilateral inguinal hernias are seen, larger on the ri ght. IMPRESSION: Bilateral double-J stents are in place. Stents are in expected positioning. Mild caliect asis involving the upper pole renal calices bilaterally seen. No significant hydronephrosis felt to b e present. Urinary bladder appears thickened with a Herzog catheter in place. Nonspecific lymphadenopathy is seen in the retroperitoneum and pelvis as described.
[2020-10-29] MEDS ORDERED: INSULIN -REGULAR HUMAN 50 UNIT/0.5 ML ML ONE ×2 (19:32→23:52)
[2020-10-29] MEDS ORDERED: Meropenem 1 GM/100 ML BAG ONE (19:34)
[2020-10-29] MEDS ORDERED: NA CHLORIDE 0.9% 2,000 ML ONE (19:34)
--- NOTE | 2020-10-29 19:59 | EDPHYS ---
Physician Documentation [facility] Name: Alex Skaggs Age: 40 yrs Sex: Male : 1980 Arrival Date: 10/29/2020 Time: 15:48 Bed 19 Private MD: ED Physician Patrick Art HPI: 10/29 16:25 This 40 yrs old Male presents to ER via Wheelchair with complaints of Urinary jmm Problem, Hand Swelling, Feet Swelling. 16:25 The patient presents with urinary symptoms, dysuria. Onset: The symptoms/episode jmm began/occurred gradually, 2 week(s) ago. Modifying factors: The symptoms are alleviated by nothing, the symptoms are aggravated by nothing. Associated signs and symptoms: Pertinent positives: dysuria. This is a 40 year old male with a history of DM, HTN that presents to the ED with complaints of right flank pain, dysuria, increased pain over the past 2 weeks. Denies fever. Similar symptoms when diagnosed with uti and kidney obstruction. Stent placed in the kidneys. . Historical: - Allergies: 16:02 No Known Allergies; jl7 - PMHx: 16:02 Diabetes - NIDDM; Hypertension; kidney infection; jl7 - Immunization history:: Adult Immunizations up to date, Client reports having NOT received the Covid vaccine. - Social history:: Smoking status: Patient reports the use of cigarette tobacco products, smokes one pack cigarettes per day. ROS: 16:25 Constitutional: Negative for fever, chills, and weight loss, Cardiovascular: Negative jmm for chest pain, palpitations, and edema, Respiratory: Negative for shortness of breath, cough, wheezing, and pleuritic chest pain. 16:25 Abdomen/GI: Positive for abdominal pain. 16:25 : Positive for urinary symptoms. 16:25 All other systems are negative. Exam: 16:25 Constitutional: This is a well developed, well nourished patient who is awake, alert, jmm and in no acute distress. Head/Face: atraumatic. Eyes: EOMI, no conjunctival erythema appreciated ENT: Moist Mucus Membranes Neck: Trachea midline, Supple Chest/axilla: Normal chest wall appearance and motion. Cardiovascular: Regular rate and rhythm. No edema appreciated Respiratory: Normal respirations, no respiratory distress appreciated Abdomen/GI: Non distended, soft Back: Normal ROM Skin: General appearance color normal MS/ Extremity: Moves all extremities, no obvious deformities appreciated, no edema noted to the lower extremities Neuro: Awake and alert, normal gait Psych: Behavior is normal, Mood is normal, Patient is cooperative and pleasant Vital Signs: 15:55 BP 146 / 107; Pulse 105; Resp 17 S; Temp 97.5(TE); Pulse Ox 100% on R/A; Weight 108.86 jl7 kg; Height 5 ft. 4 in. (162.56 cm); Pain 10/10; 17:35 BP 144 / 80; Pulse 101; Resp 17 S; Pulse Ox 97% on R/A; jd3 19:40 BP 113 / 68; Pulse 112; Resp 20; Temp 97.4; Pulse Ox 99% on R/A; lc1 22:03 BP 121 / 86; Pulse 111; Resp 18; Pulse Ox 99% on R/A; lc1 23:06 BP 134 / 89; Pulse 101; Resp 18; Pulse Ox 99% on R/A; lc1 15:55 Body Mass Index 41.20 (108.86 kg, 162.56 cm) jl7 MDM: 16:25 Patient medically screened. [facility] 19:52 Data reviewed: vital signs, nurses notes. Counseling: I had a detailed discussion with [facility] the patient and/or guardian regarding: the historical points, exam findings, and any diagnostic results supporting the discharge/admit diagnosis, lab results, radiology results, the need for further work-up and treatment in the hospital. ED course: I discussed the patient with Gregory Deleon and Dr. Acosta whom accepted the patient for admission. 10/29 16:25 Order name: Basic Metabolic Panel; Complete Time: 18:16 [facility] 10/29 16:25 Order name: CBC with Diff; Complete Time: 17:38 [facility] 10/29 16:25 Order name: Hepatic Function; Complete Time: 18:16 [facility] 10/29 16:25 Order name: Lipase; Complete Time: 18:16 [facility] 10/29 16:25 Order name: Urine Culture [facility] 10/29 17:13 Order name: Urine Dipstick-Ancillary; Complete Time: 17:14 [facility] 10/29 17:22 Order name: Procalcitonin; Complete Time: 18:31 [facility] 10/29 17:22 Order name: Lactate [facility] 10/29 17:22 Order name: Blood Culture Adult (2) [facility] 10/29 18:18 Order name: CT Stone Protocol; Complete Time: 19:33 [facility] 10/29 22:24 Order name: SARS-COV-2 RT PCR [facility] 10/29 23:42 Order name: Glucose, Ancillary Testing [facility] 10/29 16:25 Order name: IV Saline Lock; Complete Time: 17:32 [facility] 10/29 16:25 Order name: Labs collected and sent; Complete Time: 17:32 [facility] 10/29 16:25 Order name: Urine Dipstick-Ancillary (obtain specimen); Complete Time: 17:32 [facility] 10/29 17:32 Order name: Cath; Complete Time: 17:35 jd3 Administered Medications: 17:32 Drug: morphine 4 mg Route: IVP; Site: left antecubital; jd3 20:22 Follow up: Response: No adverse reaction lc1 17:32 Drug: Zofran (Ondansetron) 4 mg Route: IVP; Site: left antecubital; jd3 20:22 Follow up: Response: No adverse reaction lc1 19:20 Drug: NS 0.9% 1000 ml Route: IV; Rate: 1000 ml; Site: left antecubital; lc1 23:14 Follow up: IV Status: Completed infusion lc1 19:20 Drug: Insulin Regular Human 10 units {Co-Signature: cheryl (Garcia Cantrell RN).} Route: lc1 Sub-Q; Site: left upper abdomen; 19:29 Follow up: Response: No adverse reaction lc1 19:20 Drug: Meropenem 1 grams Route: IV; Rate: calculated rate; Site: left antecubital; lc1 23:14 Follow up: IV Status: Completed infusion lc1 19:20 Drug: NS 0.9% 1000 ml Route: IV; Rate: 125 ml/hr; Site: left antecubital; lc1 23:14 Follow up: IV Status: Infusion continued lc1 19:22 Drug: Insulin Regular Human 10 units {Co-Signature: cheryl (Garcia Cantrell RN).} Route: lc1 IVP; Site: left antecubital; 19:29 Follow up: Response: No adverse reaction lc1 19:40 Drug: morphine 4 mg Route: IVP; Site: left antecubital; lc1 20:22 Follow up: Response: No adverse reaction lc1 Disposition: 10/29/20 19:58 Hospitalization ordered by Moustapha Art for Inpatient Admission. Preliminary diagnosis are Acute Kidney Injury, UTI. - Bed requested for Telemetry/MedSurg (observation). - Status is Inpatient Admission. lc1 - Condition is Stable. - Problem is new. - Symptoms are unchanged. Addendum: 11/01/2020 07:04 Co-signature as Attending Physician, Patrick Art MD. r n Signatures: Dispatcher [employer] [facility] iRan Rodriguez PA PA jmm Nieto, Roman, MD MD rn Calhoun, Lisa lc1 Gregory Deleon, SANDING MACHINE BUFFER-C SANDING MACHINE BUFFER-Cla1 Jessica Samuels, RN RN tl1 Negro Paiz RN RN jl7 Sudarshan Montalvo RN RN jd3 Garcia Cantrell RN jm8 Corrections: (The following items were deleted from the chart) 10/29 21:22 20:15 CORONAVIRUS+MR.LAB.BRZ ordered. [facility] 22:32 19:58 Hospitalization Ordered by Moustapha Art MD for Inpatient Admission. Preliminary tl1 diagnosis is Acute Kidney Injury; UTI. Bed requested for Telemetry/MedSurg (observation). Status is Inpatient Admission. Condition is Stable. Problem is new. Symptoms are unchanged. [facility] 22:32 22:32 10/29/2020 19:58 Hospitalization Ordered by Moustapha Art MD for Inpatient tl1 Admission. Preliminary diagnosis is Acute Kidney Injury; UTI. Bed requested for Telemetry/MedSurg (observation). Status is Inpatient Admission. Condition is Stable. Problem is new. Symptoms are unchanged. [facility] 22:39 22:32 10/29/2020 19:58 Hospitalization Ordered by Moustapha Art MD for Inpatient tl1 Admission. Preliminary diagnosis is Acute Kidney Injury; UTI. Bed requested for Telemetry/MedSurg (observation). Status is Inpatient Admission. Condition is Stable. Problem is new. Symptoms are unchanged. 1 10/30 00:13 10/29 22:39 10/29/2020 19:58 Hospitalization Ordered by Moustapha Art MD for Inpatient lc1 Admission. Preliminary diagnosis is Acute Kidney Injury; UTI. Bed requested for Telemetry/MedSurg (observation). Status is Inpatient Admission. Condition is Stable. Problem is new. Symptoms are unchanged. tl1
--- NOTE | 2020-10-29 19:59 | ER ---
Nurse's Notes [facility] Name: Alex Skaggs Age: 40 yrs Sex: Male : 1980 Arrival Date: 10/29/2020 Time: 15:48 Bed 19 [facility] MD: Diagnosis: Acute Kidney Injury;UTI Presentation: 10/29 15:55 Chief complaint: Patient states: Discharged from here about 3 weeks ago from having a jl7 severe UTI, went to the urologist, Dr. Acosta, 2 weeks ago and he removed the catheter, I couldn't urinate correctly and he said he gives me about 2 weeks before I'm back in the same situation. All the symptoms are back and severe. I have stents that were placed and need to be removed. Coronavirus screen: Client denies travel out of the [place] in the last 14 days. At this time, the client does not indicate any symptoms associated with coronavirus-19. Ebola Screen: No symptoms or risks identified at this time. Initial Sepsis Screen: Does the patient meet any 2 criteria? No. Patient's initial sepsis screen is negative. Does the patient have a suspected source of infection? No. Patient's initial sepsis screen is negative. Risk Assessment: Do you want to hurt yourself or someone else? Patient reports no desire to harm self or others. Onset of symptoms was September 2020. Care prior to arrival: None. 15:55 Method Of Arrival: Wheelchair jl7 15:55 Acuity: MIKIE 3 jl7 Triage Assessment: 16:02 General: Appears in no apparent distress. uncomfortable, Behavior is calm, cooperative, jl7 appropriate for age. Pain: Denies pain. Historical: - Allergies: 16:02 No Known Allergies; jl7 - PMHx: 16:02 Diabetes - NIDDM; Hypertension; kidney infection; jl7 - Immunization history:: Adult Immunizations up to date, Client reports having NOT received the Covid vaccine. - Social history:: Smoking status: Patient reports the use of cigarette tobacco products, smokes one pack cigarettes per day. Screenin:11 Abuse screen: Denies threats or abuse. Nutritional screening: No deficits noted. jd3 Tuberculosis screening: No symptoms or risk factors identified. Fall Risk Ambulatory Aid- None/Bed Rest/Nurse Assist (0 pts). Gait- Normal/Bed Rest/Wheelchair (0 pts) Mental Status- Oriented to own ability (0 pts). Total Salvador Fall Scale indicates No Risk (0-24 pts). Assessment: 16:19 General: Appears in no apparent distress. comfortable, Behavior is calm, cooperative, jd3 appropriate for age. Pain: Complains of pain in suprapubic area Pain radiates to low back area, left flank and right flank Quality of pain is described as sharp. Neuro: Level of Consciousness is awake, alert, obeys commands, Oriented to person, place, time, situation. Cardiovascular: Denies chest pain, Capillary refill < 3 seconds Patient's skin is warm and dry. Respiratory: Airway is patent Respiratory effort is even, unlabored, Respiratory pattern is regular, symmetrical, Denies cough, shortness of breath. GI: No signs and/or symptoms were reported involving the gastrointestinal system. : Reports burning with urination, urgency, urinary frequency, Denies blood in the urine. EENT: No signs and/or symptoms were reported regarding the EENT system. Derm: Skin is intact, Skin is dry, Skin is normal, Skin temperature is warm. Musculoskeletal: Circulation, motion, and sensation intact. Range of motion: intact in all extremities. 17:35 Reassessment: Patient appears in no apparent distress at this time. No changes from jd3 previously documented assessment. Patient and/or family updated on plan of care and expected duration. Pain level reassessed. Patient is alert, oriented x 3, equal unlabored respirations, skin warm/dry/pink. 18:30 Reassessment: Patient appears in no apparent distress at this time. No changes from jd3 previously documented assessment. Patient and/or family updated on plan of care and expected duration. Pain level reassessed. Patient is alert, oriented x 3, equal unlabored respirations, skin warm/dry/pink. 19:30 Reassessment: Patient and/or family updated on plan of care and expected duration. Pain lc1 level reassessed. Pain: Complains of pain in abdomen and suprapubic area Pain currently is 10 out of 10 on a pain scale. Quality of pain is described as sharp, Is continuous, Noted to be resistant to movement, Rian LENNON notified. 20:30 Reassessment: No changes from previously documented assessment. Patient and/or family lc1 updated on plan of care and expected duration. Pain level reassessed. Patient is alert, oriented x 3, equal unlabored respirations, skin warm/dry/pink. Vital Signs: 15:55 BP 146 / 107; Pulse 105; Resp 17 S; Temp 97.5(TE); Pulse Ox 100% on R/A; Weight 108.86 jl7 kg; Height 5 ft. 4 in. (162.56 cm); Pain 10/10; 17:35 BP 144 / 80; Pulse 101; Resp 17 S; Pulse Ox 97% on R/A; jd3 19:40 BP 113 / 68; Pulse 112; Resp 20; Temp 97.4; Pulse Ox 99% on R/A; lc1 22:03 BP 121 / 86; Pulse 111; Resp 18; Pulse Ox 99% on R/A; lc1 23:06 BP 134 / 89; Pulse 101; Resp 18; Pulse Ox 99% on R/A; lc1 15:55 Body Mass Index 41.20 (108.86 kg, 162.56 cm) jl7 ED Course: 15:48 Patient arrived in ED. mr 16:01 Triage completed. jl7 16:02 Arm band placed on right wrist. jl7 16:05 Sudarshan Montalvo, RN is Primary Nurse. jd3 16:11 Patient has correct armband on for positive identification. Placed in gown. Bed in low jd3 position. Call light in reach. Side rails up X 1. Adult w/ patient. Pulse ox on. NIBP on. 16:14 Rian Rodriguez PA is PHCP. [facility] 16:14 Patrick Art MD is Attending Physician. [facility] 17:32 Urine Culture Sent. jd3 17:32 Inserted saline lock: 22 gauge in left antecubital area, using aseptic technique. Blood jd3 collected. 17:45 Herzog cath inserted, using sterile technique, 16 Fr., by ED staff, balloon inflated, to jd3 gravity drainage. 19:06 CT Stone Protocol In Process Unspecified. EDMS 19:57 Moustapha Art MD is Hospitalizing Provider. [facility] 23:08 Awaiting bed assignment. [facility] 23:08 No provider procedures requiring assistance completed. Patient admitted, IV remains in lc1 place. Administered Medications: 17:32 Drug: morphine 4 mg Route: IVP; Site: left antecubital; jd3 20:22 Follow up: Response: No adverse reaction lc1 17:32 Drug: Zofran (Ondansetron) 4 mg Route: IVP; Site: left antecubital; jd3 20:22 Follow up: Response: No adverse reaction lc1 19:20 Drug: NS 0.9% 1000 ml Route: IV; Rate: 1000 ml; Site: left antecubital; lc1 23:14 Follow up: IV Status: Completed infusion lc1 19:20 Drug: Insulin Regular Human 10 units {Co-Signature: cheryl (Garcia Cantrell RN).} Route: lc1 Sub-Q; Site: left upper abdomen; 19:29 Follow up: Response: No adverse reaction lc1 19:20 Drug: Meropenem 1 grams Route: IV; Rate: calculated rate; Site: left antecubital; lc1 23:14 Follow up: IV Status: Completed infusion lc1 19:20 Drug: NS 0.9% 1000 ml Route: IV; Rate: 125 ml/hr; Site: left antecubital; lc1 23:14 Follow up: IV Status: Infusion continued lc1 19:22 Drug: Insulin Regular Human 10 units {Co-Signature: cheryl (Garcia Cantrell RN).} Route: lc1 IVP; Site: left antecubital; 19:29 Follow up: Response: No adverse reaction lc1 19:40 Drug: morphine 4 mg Route: IVP; Site: left antecubital; lc1 20:22 Follow up: Response: No adverse reaction lc1 Outcome: 19:58 Decision to Hospitalize by Provider. suraj 23:06 Condition: stable 1 23:06 Instructed on the need for admit. 23:39 Admitted to Med/surg accompanied by nurse, via wheelchair, room 219, with chart, Report lc1 called to liana 10/30 00:13 Patient left the ED. 1 Signatures: Dispatcher [employer] EDMS Rian Rodriguez PA PA jmm HellerLaura mr Conroy, Debra wyman1 Negro Paiz RN RN jl7 Sudarshan Montalvo RN RN jd3 Joseph Malcaba RN jm8 Corrections: (The following items were deleted from the chart) 10/29 16:06 15:55 Chief complaint: Patient states: Discharged from her about 3 weeks ago from [place] having a severe UTI, went to the urologist, Dr. Acosta, 2 weeks ago and he removed the catheter, I couldn't urinate correctly and he said he gives me about 2 weeks before I'm back in the same situation. All the symptoms are back and severe. I have stents that were placed and need to be removed jl7
[2020-10-29] MEDS: HYDROCODONE/APAP 7.5/325 MG TAB PO PRN (20:05)
--- NOTE | 2020-10-29 21:05 | P.HP ---
Certification for Inpatient Patient admitted to: Inpatient With expected LOS: >2 Midnights Patient will require the following post-hospital care: None Practitioner: I am a practitioner with admitting privileges, knowledge of patient current condition, hospital course, and medical plan of care. Services: Services provided to patient in accordance with Admission requirements found in Title 42 Section 412.3 of the Code of Federal Regulations Patient History Date of Service: 10/29/20 Primary Care Provider: Dr. Retana Reason for admission: Acute renal failure, UTI History of Present Illness: 40-year-old male with history of diabetes mellitus type 2, hypertension presents emergency department for urinary retention, back pain, suprapubic pain. Patient with recent admission for urinary retention, hydronephrosis, acute renal failure, UTI with ESBL, patient was treated with IV meropenem, ureteral stents were placed bilaterally, patient had Herzog catheter throughout admission was discharged with catheter. Patient followed up with neurology on outpatient basis but did not agree with plan of care/was not compliant with additional evaluation, patient was due to have his ureteral stents removed and urology offer to remove them last week for no cost but patient refused as he has not offered general sedation. Patient was evaluated in the emergency department, labs significant for white blood cell count 13.9 hemoglobin 11.9 sodium 129 creatinine 2.93 GFR 24 BUN 50 glucose 578 pro calcitonin 15.48. UA significant for 3+ leukocytes. Case was discussed with urology, as patient is noncompliant with plan of care he did not have much to offer aside from offering to remove patient's ureteral stents which he suggested did need to be removed at some point. ED provider wishes to admit for further evaluation and management of acute renal failure, UTI. When I saw the patient in the ER he was awake, alert, oriented x3. Patient is disgruntled, patient reports that he has been without insurance and also did not agree with urology plan of care, has been unable to follow up with any other urologist as he did not have any insurance. Discussed with patient at length his condition and that without further evaluation from urology after his acute renal failure/UTI was addressed this would likely be a recurrent issue leading to the necessity of possible dialysis verses severe infections sepsis/. Patient verbalized understanding reports that he is working on trying to get additional healthcare coverage to see another urologist. Patient not amendable to having his ureteral stent removed during this hospitalization. Allergies No Known Allergies Allergy (Verified 09/10/20 00:25) Home Medications: Docusate [Colace Cap*] 100 mg PO DAILY #30 cap 09/18/20 Folic Acid 1 mg PO DAILY #90 tablet 09/18/20 Losartan Potassium [Cozaar*] 50 mg PO BID #60 tablet 09/18/20 Metoprolol Tartrate [Lopressor*] 25 mg PO BID 6AM 6PM #60 tab 09/18/20 Nicotine [Nicoderm*] 14 mg TD DAILY #30 patch.td24 09/18/20 Oxybutynin Chloride [Ditropan*] 5 mg PO BID #60 tab 09/18/20 hydroCHLOROthiazide [Hydrochlorothiazide] 25 mg PO DAILY #30 tablet 09/18/20 traMADol HCL [Ultram*] 50 mg PO TID PRN #10 tab 09/18/20 Nf Relion 70/30 20 units SQ DAILY AT SUPPER 09/23/20 Relion 70/30 40 units SQ BREAKFAST 09/23/20 - Past Medical/Surgical History Diabetic: Yes -: DM -: HTN -: Kidney Infection -: Urinary retention -: Ureteral stents bilaterally Psychosocial/ Personal History: Unemployed, lives alone - Family History Mother -: Diabetes Father -: Diabetes - Social History Smoking Status: Current every day smoker Alcohol use: No CD- Drugs: No Caffeine use: No Place of Residence: Home Review of Systems General: Chills, Weakness, Malaise Gastrointestinal: Abdominal Pain Musculoskeletal: Back Pain Physical Examination - Physical Exam General: Alert, In no apparent distress, Oriented x3 HEENT: Atraumatic, PERRLA, Mucous membr. moist/pink Neck: Supple, 2+ carotid pulse no bruit, No LAD Respiratory: Clear to auscultation bilaterally, Normal air movement Cardiovascular: Regular rate/rhythm, Normal S1 S2 Gastrointestinal: Normal bowel sounds, No tenderness Musculoskeletal: No tenderness Integumentary: No rashes Neurological: Normal speech, Normal strength at 5/5 x4 extr, Normal tone, Normal affect - Studies Laboratory Data (last 24 hrs) 10/29/20 17:24: WBC 13.90 H, Hgb 11.9 L, Hct 35.5 L, Plt Count 507 H 10/29/20 17:24: Sodium 129 L, Potassium 4.2, BUN 50 H, Creatinine 2.93 H, Glucose 578 H*, Total Bilirubin 0.3, AST 5 L, ALT 11 L, Alkaline Phosphatase 170 H, Lipase 154 Assessment and Plan - Plan Assessment Acute renal failure secondary to chronic urinary retention S/P bilateral ureteral stenting complicated with urinary tract infection, leukocytosis with history of ESBL Diabetes mellitus type 2 with hyperglycemia Hypertension Plan Acute renal failure secondary to chronic urinary retention S/P bilateral ureteral stenting complicated with urinary tract infection, leukocytosis with history of ESBL: Case was discussed with neurology, urology recommended removal of ureteral stents, this was supposed to be performed in the office but patient refused. Patient currently refusing to have stents removed unless he is under sedation. Urology recommends placement Herzog catheter for treatment of urinary retention. Nephrology consulted, continue with IV fluids, Herzog catheter, patient's postvoid residual was approximately 400 cc. Patient with previous urine culture sensitive to meropenem, continue with meropenem therapy. Discussed with patient at length regarding need for further evaluation from Urology on an outpatient basis, patient plans on seeing another urologist once he is discharged although he is having trouble arranging to do this as he does not currently have any insurance coverage. java web services developer consulted to assist patient in obtaining additional coverage if possible. Patient very difficult, noncompliant with therapy so far, described to the patient at length that if he does not have his urinary retention addressed you will continue to have infections and problems with his kidneys leading up to the possible need for dialysis in even severe infection/. Patient does verbalize understanding this. Diabetes mellitus type 2 with hyperglycemia: Initial blood sugar close to 600. Patient reports not taking his insulin today, this was addressed in detail as well. Will continue aggressive sliding scale insulin therapy. Previous A1c greater than 14. ADA diet. Hypertension: Continue home medications as appropriate. Discharge Plan: Home Plan to discharge in: Greater than 2 days - Advance Directives Does patient have a Living Will: No Does patient have a Durable POA for Healthcare: No - Code Status/Comfort Care Code Status Assessed: Yes (Full code) Critical Care: No Time Spent Managing Pts Care (In Minutes): 55
[2020-10-29] MEDS ORDERED: ACETAMINOPHEN 500 MG TAB PO PRN (21:59)
[2020-10-29] MEDS ORDERED: ONDANSETRON 4 MG/2 ML VIAL IV PRN (21:59)
[2020-10-29] MEDS: NA CHLORIDE 0.9% 1,000 ML IV SCH (21:59)
[2020-10-29] MEDS: INSULIN -REGULAR HUMAN 50 UNIT/0.5 ML ML SQ SCH (21:59)
[2020-10-29] MEDS: MORPHINE 2 MG/ML SYR IV PRN (22:05)
[2020-10-30 00:21] VITALS: BMI 39.4
[2020-10-30] MEDS ORDERED: Meropenem 1000 MG/VIAL IV SCH (01:00)
[2020-10-30] MEDS: MORPHINE 2 MG/ML SYR IV PRN ×3 (01:54→09:23)
[2020-10-30] MEDS ORDERED: INSULIN -REGULAR HUMAN 50 UNIT/0.5 ML ML SQ ONE (02:50)
[2020-10-30] MEDS: HYDROCODONE/APAP 7.5/325 MG TAB PO PRN (03:00)
[2020-10-30] MEDS: NA CHLORIDE 0.9% 1,000 ML IV SCH (05:19)
[2020-10-30] MEDS ORDERED: GLUCAGON 1 MG/VIAL IM PRN (05:41)
[2020-10-30] MEDS ORDERED: D50W 25 GM/50 ML SYRINGE IV PRN (05:41)
[2020-10-30 05:59] LABS: Urine Appearance TURBID (Clear); Urine Bilirubin NEGATIVE (Negative); Urine Blood 3+ (Negative); Urine Color YELLOW (Yellow); Urine Glucose 2+ (Negative); Urine Protein 3+ (Negative); Urine Urobilinogen 0.2 mg/dL (0.2-1.0)
[2020-10-30 06:00] LABS: Absolute Lymphocytes (CBC) 3.4 K/uL (0.7-4.9); Basophils % 0.9 % (0-1.3); Hematocrit 37.3 % (39.6-49.0); Lymphocytes % 18.9 % (15.3-44.8); MPV 8.4 fL (7.6-11.3); RBC Red Blood Cell Count 4.27 M/uL (4.33-5.43)
[2020-10-30 06:07] LABS: Urine Microscopic Reflex ORDER UMIC
[2020-10-30 06:15] LABS: Albumin 3.1 g/dL (3.4-5.0); Bilirubin Total 0.2 mg/dL (0.2-1.0); Magnesium 2.4 mg/dL (1.8-2.4); Potassium 3.8 mmol/L (3.5-5.1); Protein, Total 8.7 g/dL (6.4-8.2)
[2020-10-30 06:20] LABS: Urine Bacteria <20 /HPF (NONE SEEN); Urine RBC 20-50 /HPF (NONE SEEN)
[2020-10-30] MEDS: NICOTINE 14 MG/PAT TD SCH (08:30)
[2020-10-30] MEDS: INSULIN 70/30 100 UNITS/ML SQ SCH (08:31)
[2020-10-30] MEDS: INSULIN -REGULAR HUMAN 50 UNIT/0.5 ML ML SQ SCH ×4 (08:31→20:31)
[2020-10-30] MEDS: ENOXAPARIN 30 MG/0.3 ML SQ SCH (09:00)
[2020-10-30] MEDS ORDERED: POTASSIUM CL SA 10 MEQ TAB PO ONE (09:00)
[2020-10-30] MEDS ORDERED: ENOXAPARIN 40 MG/0.4 ML SQ SCH (09:00)
[2020-10-30] MEDS: Meropenem 1 GM/100 ML BAG IV SCH ×2 (09:23→20:25)
--- NOTE | 2020-10-30 09:47 | P.CNS ---
Date of Consult: 10/30/20 Reason for Consult: TJ/ CKD Requesting Physician: Moustapha Art Primary Care Provider: Dr. Retana Chief Complaint: Acute renal failure, UTI History of Present Illness: 40-year-old male with history of diabetes mellitus type 2, hypertension presents emergency department for urinary retention, back pain, suprapubic pain. Patient with recent admission for urinary retention, hydronephrosis, acute re nal failure, UTI with ESBL, patient was treated with IV meropenem, ureteral stents were placed bilaterally, patient had Herzog catheter throughout admission was discharged with catheter. Patient followed up with neurology on outpatient basis but did not agree with plan of care/was not compliant with additional evaluation, patient was due to have his ureteral stents removed and urology offer to remove them last week for no cost but patient refused as he has not offered general sedation. Patient was evaluated in the emergency department, labs significant for white blood cell count 13.9 hemoglobin 11.9 sodium 129 creatinine 2.93 GFR 24 BUN 50 glucose 578 pro calcitonin 15.48. UA significant for 3+ leukocytes. Case was discussed with urology, as patient is noncompliant with plan of care he did not have much to offer aside from offering to remove patient's ureteral stents which he suggested did need to be removed at some point. ED provider wishes to admit for further evaluation and management of acute renal failure, UTI. 16:25 This 40 yrs old Male presents to ER via Wheelchair with complaints of Urinary jmm Problem, Hand Swelling, Feet Swelling. 16:25 The patient presents with urinary symptoms, dysuria. Onset: The symptoms/episode jmm began/occurred gradually, 2 week(s) ago. Modifying factors: The symptoms are alleviated by nothing, the symptoms are aggravated by nothing. Associated signs and symptoms: Pertinent positives: dysuria. This is a 40 year old male with a history of DM, HTN that presents to the ED with complaints of right flank pain, dysuria, increased pain over the past 2 weeks. Denies fever. Similar symptoms when diagnosed with uti and kidney obstruction. Stent placed in the kidneys Allergies No Known Allergies Allergy (Verified 10/30/20 00:01) Home medications list reviewed: Yes Home Medications: Folic Acid 1 mg PO DAILY 10/30/20 Insulin Aspart [Insulin Aspart Flexpen] See Protocol SQ ACHS 10/30/20 Insulin Glargine,Hum.rec.anlog [Lantus] 50 unit SQ BEDTIME 10/30/20 Losartan Potassium 50 mg PO BID 10/30/20 Metoprolol Tartrate 25 mg PO BID 10/30/20 Nicotine [Nicoderm] 14 mg TD DAILY 10/30/20 Tamsulosin [Flomax] 0.4 mg PO BEDTIME 10/30/20 Tramadol HCl [Ultram] 50 mg PO TID PRN 10/30/20 hydroCHLOROthiazide [Hydrochlorothiazide] 25 mg PO DAILY 10/30/20 - Past Medical/Surgical History Diabetic: Yes -: DM -: HTN -: Kidney Infection -: Urinary retention -: Ureteral stents bilaterally Psychosocial/ Personal History: Unemployed, lives alone - Family History Mother Medical History: Diabetes Father Medical History: Diabetes - Social History Smoking Status: Current every day smoker Alcohol use: No CD- Drugs: No Caffeine use: Yes Place of Residence: Home Review of Systems 10-point ROS is otherwise unremarkable General: Weakness, Malaise Respiratory: SOB with Excertion Cardiovascular: Edema Gastrointestinal: Abdominal Pain Physical Examination Temp Pulse Resp BP Pulse Ox 97 F 98 H 16 132/84 98 10/30/20 08:00 10/30/20 08:00 10/30/20 09:23 10/30/20 08:00 10/30/20 09:23 General: Oriented x3, Cooperative HEENT: Atraumatic Neck: Supple Respiratory: Clear to auscultation bilaterally Cardiovascular: Regular rate/rhythm, Edema Gastrointestinal: Tenderness Musculoskeletal: No clubbing, No contractures Integumentary: No rashes, No cyanosis Neurological: Normal speech Laboratory Data (last 24 hrs) 10/29/20 17:24: WBC 13.90 H, Hgb 11.9 L, Hct 35.5 L, Plt Count 507 H 10/29/20 17:24: Sodium 129 L, Potassium 4.2, BUN 50 H, Creatinine 2.93 H, Glucose 578 H*, Total Bilirubin 0.3, AST 5 L, ALT 11 L, Alkaline Phosphatase 170 H, Lipase 154 Imagings Data: EXAM DESCRIPTION: CT - Stone Protocol - 10/29/2020 7:06 pm CLINICAL HISTORY: Flank pain. FLANK PAIN COMPARISON: Stone Protocol dated 09/09/2020; Kidney Imag W/Flow F W dated 09/15/2020; Chest Single View dated 09/17/2020; Cystography dated 09/15/2020 TECHNIQUE: Axial images were obtained without oral or IV contrast. Lack of contrast limits solid organ and vascular assessment. The [id number] spans the entirety of the system partially obscuring uppermost abdomen and lung bases. Coronal reformatted images were obtained and reviewed. All CT scans are performed using dose optimization technique as appropriate and may include automated exposure control or mA/KV adjustment according to patient size. FINDINGS: The lower lung [place] are clear. Imaged portions of the liver and spleen show no suspicious findings on non- contrast imaging. The pancreas and adrenal glands are normal. No pathologic lymphadenopathy in the abdomen or pelvis. Bilateral double-J stents are in place. The proximal and distal aspects of both stents are in expected positioning. Mild caliectasis of the upper pole moieties bilaterally. Herzog catheter is present within the urinary bladder. Thickening of the bladder wall is also seen. Mildly prominent lymph nodes are evident in the pelvis including the perirectal fat, measuring up to 11 mm. Several mildly enlarged lymph nodes are also seen along both iliac chain the periaortic region on the left measuring 21 mm. No bowel obstruction, free air, free fluid or abscess. Normal appendix noted. No significant bony abnormality. Fat containing bilateral inguinal hernias are seen, larger on the right. IMPRESSION: Bilateral double-J stents are in place. Stents are in expected positioning. Mild caliectasis involving the upper pole renal calices bilaterally seen. No significant hydronephrosis felt to be present. Urinary bladder appears thickened with a Herzog catheter in place. Nonspecific lymphadenopathy is seen in the retroperitoneum and pelvis as described. Conclusions/Impression: TJ likely due to obstruction CKD III with proteinuria -No NSAIDs Hyponatremia -Give Lasix Hypokalemia -Replete potassium prn NAG Acidosis HTN -Continue Metoprolol LE Edema -Low sodium diet -Give Lasix X1 -Discontinue IVF DM II with CKD -Continue Insulin 70/30 -RISS Anemia in chronic illness -Monitor H&H Acute cystitis -Continue Meropenem -Follow up culture -Follow up with urology for BL ureteral stents Thank you kindly for the consultation.
--- NOTE | 2020-10-30 10:37 | P.PN ---
Subjective Date of Service: 10/30/20 Primary Care Provider: Dr. Retana Chief Complaint: Acute renal failure, UTI Subjective: Improving (feels somewhat improved, pain persists in bladder and lower back, feels meds help but not lasting enough. Dilaudid helped better last hospitalization. some hematuria in michel bag, urine in tubing clear) Review of Systems 10-point ROS is otherwise unremarkable Physical Examination - Vital Signs Temperature: 97 F Blood Pressure: 132/84 Pulse: 98 Respirations: 16 Pulse Ox (%): 98 - Studies Laboratory Data (last 24 hrs) 10/29/20 17:24: WBC 13.90 H, Hgb 11.9 L, Hct 35.5 L, Plt Count 507 H 10/29/20 17:24: Sodium 129 L, Potassium 4.2, BUN 50 H, Creatinine 2.93 H, Glucose 578 H*, Total Bilirubin 0.3, AST 5 L, ALT 11 L, Alkaline Phosphatase 170 H, Lipase 154 Assessment & Plan Physician Review Additional Text: Physical Exam General: Alert, In no apparent distress, Oriented x3 HEENT: Atraumatic, PERRLA, Mucous membr. moist/pink Neck: Supple, 2+ carotid pulse no bruit, No LAD Respiratory: Clear to auscultation bilaterally, Normal air movement Cardiovascular: Regular rate/rhythm, Normal S1 S2 Gastrointestinal: Normal bowel sounds, No tenderness Musculoskeletal: No tenderness Integumentary: No rashes Neurological: Normal speech, Normal strength at 5/5 x4 extr, Normal tone, Normal affect Problem List Acute renal failure secondary to chronic urinary retention S/P bilateral ureteral stenting complicated with urinary tract infection, leukocytosis with history of ESBL Diabetes mellitus type 2 with hyperglycemia Hypertension -TJ improving with IVF and michel -continue IV meropenem, h/o ESBL -pt has been noncompliant with medications and recommendations, refused ureteral stent removal, unless he would have full sedation -Nephrology consulted for assistance with TJ -significant hyperglycemia, improving. Patient has been noncompliant and not using his insulin for the last several days -need to continue to monitor closely, close management of his glucose as well -f/u cultures -discussed with urology, would possibly be able to remove stents at bedside with some light sedation / local anesthestic if patient is agreeable and stable for procedure -continue home medications, patient unsure of exact doses, will further confirm, states he takes insulin 70/30 - 20u in AM, 40u at night VTE: SCDs, hematuria Code: full Dispo: anticipate dc home in ~2 days, pending culture, may need IV antibiotics on discharge Time Spent Managing Pts Care (In Minutes): 45
[2020-10-30] MEDS ORDERED: FUROSEMIDE 40 MG/4 ML VIAL IV ONE (11:15)
[2020-10-30] MEDS: HYDROMORPHONE HCL 0.5 MG/0.5 ML INJ IV PRN ×2 (12:07→20:22)
[2020-10-30 13:40] LABS: Urine Protein/Creatinine Ratio 9.72 ratio (<0.15)
[2020-10-30] MEDS: TAMSULOSIN 0.4 MG SR CAP PO SCH (20:26)
[2020-10-30] MEDS: METOPROLOL TAR 25 MG TAB PO SCH (20:27)
[2020-10-30] MEDS ORDERED: INSULIN 70/30 100 UNITS/ML SQ SCH (21:30)
[2020-10-31] MEDS: HYDROMORPHONE HCL 0.5 MG/0.5 ML INJ IV PRN ×3 (00:25→07:34)
[2020-10-31 05:28] LABS: Absolute Lymphocytes (CBC) 3.3 K/uL (0.7-4.9); Basophils % 0.7 % (0-1.3); Hematocrit 39.6 % (39.6-49.0); Lymphocytes % 19.4 % (15.3-44.8); MPV 8.7 fL (7.6-11.3); RBC Red Blood Cell Count 4.51 M/uL (4.33-5.43)
[2020-10-31 05:36] LABS: Albumin 3.2 g/dL (3.4-5.0); Bilirubin Total 0.3 mg/dL (0.2-1.0); Magnesium 2.4 mg/dL (1.8-2.4); Phosphorus 3.7 mg/dL (2.5-4.9); Potassium 3.7 mmol/L (3.5-5.1); Protein, Total 9.2 g/dL (6.4-8.2); Uric Acid 10.3 mg/dL (3.5-7.2)
[2020-10-31 07:10] LABS: Urine Appearance TURBID (Clear); Urine Bilirubin NEGATIVE (Negative); Urine Blood NEGATIVE (Negative); Urine Color YELLOW (Yellow); Urine Glucose 1+ (Negative); Urine Protein 2+ (Negative); Urine Specific Gravity 1.015 (1.005-1.030); Urine Urobilinogen 0.2 mg/dL (0.2-1.0)
[2020-10-31 07:22] LABS: Urine RBC <5 /HPF (NONE SEEN)
[2020-10-31 07:23] LABS: Urine Bacteria >50 /HPF (NONE SEEN)
[2020-10-31] MEDS: Meropenem 1 GM/100 ML BAG IV SCH ×2 (08:34→20:31)
[2020-10-31] MEDS: NICOTINE 14 MG/PAT TD SCH (08:34)
[2020-10-31] MEDS: METOPROLOL TAR 25 MG TAB PO SCH ×2 (08:34→20:30)
[2020-10-31] MEDS: INSULIN -REGULAR HUMAN 50 UNIT/0.5 ML ML SQ SCH ×4 (08:35→20:30)
[2020-10-31] MEDS: INSULIN 70/30 100 UNITS/ML SQ SCH ×2 (08:36→20:31)
[2020-10-31] MEDS ORDERED: POTASSIUM 25 MEQ EFFERV TAB PO ONE (09:00)
[2020-10-31] MEDS: OXYBUTYNIN CHLORIDE 5 MG TAB PO SCH ×2 (10:37→20:29)
[2020-10-31] MEDS: VANCOMYCIN 2 GM in NA CHLORIDE 0.9% 500 ML IVPB SCH (10:38)
[2020-10-31] MEDS: HYDROMORPHONE HCL 1 MG/ML INJ IV PRN ×3 (11:53→20:27)
--- NOTE | 2020-10-31 14:59 | P.PN ---
Date of Service: 10/31/20 Vital Signs Temp Pulse Resp BP Pulse Ox 97.6 F 87 20 125/79 97 10/31/20 11:00 10/31/20 11:00 10/31/20 12:23 10/31/20 11:00 10/31/20 12:23 Medications Acetaminophen (Acetaminophen 500 Mg Tab) 500 mg PO Q4HP PRN PRN Reason: TEMP > 100' F Hydrocodone Bitart/Acetaminophen (Hydrocodone/Apap 7.5/325 Mg Tab) 1 tab PO Q6HP PRN PRN Reason: Pain scale 5-7 (Moderate) Last Admin: 10/30/20 03:00 Dose: 1 tab Documented by: Dextrose (D50w 25 Gm/50 Ml Syringe) 12.5 gm IV PRN PRN; Protocol PRN Reason: HYPOGLYCEMIA Enoxaparin Sodium (Enoxaparin 30 Mg/0.3 Ml) 30 mg SQ DAILY [facility] Last Admin: 10/30/20 09:00 Dose: Not Given Documented by: Glucagon (Glucagon 1 Mg/Vial) 1 mg IM 1X PRN; Protocol PRN Reason: HYPOGLYCEMIA Hydromorphone HCl (Hydromorphone Hcl 1 Mg/Ml Inj) 1 mg IV Q4H PRN PRN Reason: Pain scale 5-7 (Moderate) Last Admin: 10/31/20 11:53 Dose: 1 mg Documented by: Meropenem (Merrem 1 Gm/100 Ml Ns Ivpb) 1 gm in 100 mls @ 200 mls/hr IV Q12HR [facility] Last Admin: 10/31/20 08:34 Dose: 100 mls Documented by: Vancomycin HCl 2 gm/ Sodium (Chloride) 500 mls @ 250 mls/hr IVPB Q36H [facility]; Protocol Last Admin: 10/31/20 10:38 Dose: 500 mls Documented by: Sodium Chloride (Ns 1000 Ml Ivbag) 1,000 mls @ 75 mls/hr IV .[id number] [facility] Insulin Human Isoph/Insulin Regular (Insulin 70/30 100 Units/Ml) 20 unit SQ DAILY WITH BREAKFAST [facility] Last Admin: 10/31/20 08:36 Dose: 20 unit Documented by: Insulin Human Isoph/Insulin Regular (Insulin 70/30 100 Units/Ml) 20 unit SQ BEDTIME [facility] Last Admin: 10/30/20 21:21 Dose: 20 unit Documented by: Insulin Human Regular (Insulin -Regular Human 50 Unit/0.5 Ml Ml) 0 unit SQ ACHS [facility]; Protocol Last Admin: 10/31/20 11:52 Dose: 12 unit Documented by: Metoprolol Tartrate (Metoprolol Tar 25 Mg Tab) 25 mg PO BID [facility] Last Admin: 10/31/20 08:34 Dose: 25 mg Documented by: Nicotine (Nicotine 14 Mg/Pat) 14 mg TD DAILY [facility] Last Admin: 10/31/20 08:34 Dose: 14 mg Documented by: Ondansetron HCl (Ondansetron 4 Mg/2 Ml Vial) 4 mg IV Q6HP PRN PRN Reason: NAUSEA / VOMITING Oxybutynin Chloride (Oxybutynin Chloride 5 Mg Tab) 5 mg PO BID [facility] Last Admin: 10/31/20 10:37 Dose: 5 mg Documented by: Sodium Chloride (Flush Normal Saline 10 Ml) 10 ml IV BID [facility] Last Admin: 10/31/20 08:36 Dose: 10 ml Documented by: Tamsulosin HCl (Tamsulosin 0.4 Mg Sr Cap) 0.4 mg PO BEDTIME [facility] Last Admin: 10/30/20 20:26 Dose: 0.4 mg Documented by: Microbiology Results 10/29/20 17:12 Clean Catch Urine [place] Count - Preliminary BETWEEN 10,000 & 100,000 CFU/ML 10/29/20 17:12 Clean Catch Urine - Preliminary MIXED ISAIAH. 10/29/20 19:49 Blood - Blood Blood Culture Gram Stain - Preliminary 10/29/20 19:49 Blood - Blood Anaerobic Blood Culture - Preliminary No growth in 24 hours. 10/29/20 20:01 Blood - Blood Aerobic Blood Culture - Preliminary No growth in 24 hours. 10/29/20 20:01 Blood - Blood Anaerobic Blood Culture - Preliminary No growth in 24 hours. Assessment/ Plan: Nephrology Feeling better today with the increased dilaudid. Urine output more cloudy today. Difficulty sleeping overnight due to the pain. Vitals, medications, blood work and imaging reviewed in the chart. General: Oriented x3, Cooperative HEENT: Atraumatic Neck: Supple Respiratory: Clear to auscultation bilaterally Cardiovascular: Regular rate/rhythm, Edema Gastrointestinal: Tenderness Musculoskeletal: No clubbing, No contractures Integumentary: No rashes, No cyanosis Neurological: Normal speech Laboratory Data (last 24 hrs) 10/29/20 17:24: WBC 13.90 H, Hgb 11.9 L, Hct 35.5 L, Plt Count 507 H 10/29/20 17:24: Sodium 129 L, Potassium 4.2, BUN 50 H, Creatinine 2.93 H, Glucose 578 H*, Total Bilirubin 0.3, AST 5 L, ALT 11 L, Alkaline Phosphatase 170 H, Lipase 154 Imagings Data: EXAM DESCRIPTION: CT - Stone Protocol - 10/29/2020 7:06 pm CLINICAL HISTORY: Flank pain. FLANK PAIN COMPARISON: Stone Protocol dated 09/09/2020; Kidney Imag W/Flow F W dated 09/15/2020; Chest Single View dated 09/17/2020; Cystography dated 09/15/2020 TECHNIQUE: Axial images were obtained without oral or IV contrast. Lack of contrast limits solid organ and vascular assessment. The [id number] spans the entirety of the system partially obscuring uppermost abdomen and lung bases. Coronal reformatted images were obtained and reviewed. All CT scans are performed using dose optimization technique as appropriate and may include automated exposure control or mA/KV adjustment according to patient size. FINDINGS: The lower lung [place] are clear. Imaged portions of the liver and spleen show no suspicious findings on non- contrast imaging. The pancreas and adrenal glands are normal. No pathologic lymphadenopathy in the abdomen or pelvis. Bilateral double-J stents are in place. The proximal and distal aspects of both stents are in expected positioning. Mild caliectasis of the upper pole moieties bilaterally. Herzog catheter is present within the urinary bladder. Thickening of the bladder wall is also seen. Mildly prominent lymph nodes are evident in the pelvis including the perirectal fat, measuring up to 11 mm. Several mildly enlarged lymph nodes are also seen along both iliac chain the periaortic region on the left measuring 21 mm. No bowel obstruction, free air, free fluid or abscess. Normal appendix noted. No significant bony abnormality. Fat containing bilateral inguinal hernias are seen, larger on the right. IMPRESSION: Bilateral double-J stents are in place. Stents are in expected positioning. Mild caliectasis involving the upper pole renal calices bilaterally seen. No significant hydronephrosis felt to be present. Urinary bladder appears thickened with a Herzog catheter in place. Nonspecific lymphadenopathy is seen in the retroperitoneum and pelvis as described. Conclusions/Impression: TJ likely due to obstruction CKD III with proteinuria -No NSAIDs Hyponatremia Hypokalemia -Replete potassium prn NAG Acidosis HTN -Continue Metoprolol LE Edema -Low sodium diet DM II with CKD -Continue Insulin 70/30 -RISS Anemia in chronic illness -Monitor H&H Acute cystitis -Continue Meropenem -Follow up culture -Follow up with urology for BL ureteral stents -Restart IVF to flush the bladder due to worsening sediment. -Repeat UA and culture ordered. Case reviewed with Dr. Art
[2020-10-31] MEDS: NA CHLORIDE 0.9% 1,000 ML IV SCH (16:25)
--- NOTE | 2020-10-31 17:21 | P.PN ---
Subjective Date of Service: 10/31/20 Primary Care Provider: Dr. Retana Chief Complaint: Acute renal failure, UTI Subjective: Other (continues with pain, feels it may be slightly worse, medication not really helping - lower back and suprapubic pain urine in catheter more cloudy this morning) Review of Systems 10-point ROS is otherwise unremarkable Physical Examination - Vital Signs Temperature: 97.6 F Blood Pressure: 125/79 Pulse: 87 Respirations: 20 Pulse Ox (%): 97 Assessment & Plan Physician Review Additional Text: Physical Exam General: Alert, appears uncomfortable, Oriented x3 HEENT: Atraumatic, PERRLA, Mucous membr. moist/pink Respiratory: Clear to auscultation bilaterally, Normal air movement Cardiovascular: Regular rate/rhythm, Normal S1 S2 Gastrointestinal: soft, mild TTP in suprapubic region Musculoskeletal: No tenderness Problem List Acute renal failure secondary to chronic urinary retention S/P bilateral ureteral stenting complicated with urinary tract infection, leukocytosis with history of ESBL Diabetes mellitus type 2 with hyperglycemia Hypertension -TJ improving with IVF and michel -continue IV meropenem, h/o ESBL -1 blood culture growing GPC in clusters, vancomycin ordered, suspect contamination -pt has been noncompliant with medications and recommendations, refused ureteral stent removal, unless he would have full sedation -Nephrology consulted for assistance with TJ -significant hyperglycemia, improving. Patient has been noncompliant and not using his insulin for the last several days, adjust as needed -f/u cultures -continue home medications -increase dilaudid, add oxybutynin VTE: SCDs, hematuria Code: full Dispo: anticipate dc home in ~2-3 days, pending culture, may need IV antibiotics on discharge Time Spent Managing Pts Care (In Minutes): 45
[2020-10-31] MEDS: TAMSULOSIN 0.4 MG SR CAP PO SCH (20:30)
[2020-11-01] MEDS: HYDROMORPHONE HCL 1 MG/ML INJ IV PRN ×5 (00:19→21:30)
[2020-11-01] MEDS: NA CHLORIDE 0.9% 1,000 ML IV SCH ×2 (05:10→16:23)
[2020-11-01 05:42] LABS: Absolute Lymphocytes (CBC) 3.2 K/uL (0.7-4.9); Basophils % 0.9 % (0-1.3); Hematocrit 30.4 % (39.6-49.0); Lymphocytes % 27.1 % (15.3-44.8); MPV 8.3 fL (7.6-11.3); RBC Red Blood Cell Count 3.46 M/uL (4.33-5.43)
[2020-11-01 06:09] LABS: Albumin 2.4 g/dL (3.4-5.0); Bilirubin Total 0.2 mg/dL (0.2-1.0); Magnesium 2.2 mg/dL (1.8-2.4); Potassium 3.3 mmol/L (3.5-5.1); Protein, Total 6.7 g/dL (6.4-8.2)
[2020-11-01] MEDS: INSULIN -REGULAR HUMAN 50 UNIT/0.5 ML ML SQ SCH ×5 (07:30→21:38)
[2020-11-01] MEDS: INSULIN 70/30 100 UNITS/ML SQ SCH ×3 (08:00→21:38)
[2020-11-01] MEDS ORDERED: D50W 25 GM/50 ML VIAL IV PRN (08:00)
[2020-11-01] MEDS: METOPROLOL TAR 25 MG TAB PO SCH ×2 (08:57→21:35)
[2020-11-01] MEDS: OXYBUTYNIN CHLORIDE 5 MG TAB PO SCH ×2 (08:58→21:37)
[2020-11-01] MEDS: Meropenem 1 GM/100 ML BAG IV SCH ×2 (08:58→21:37)
[2020-11-01] MEDS: NICOTINE 14 MG/PAT TD SCH (08:58)
[2020-11-01] MEDS ORDERED: POTASSIUM 25 MEQ EFFERV TAB PO ONE (09:00)
[2020-11-01] MEDS: HYDROCODONE/APAP 7.5/325 MG TAB PO PRN (09:11)
--- NOTE | 2020-11-01 10:16 | P.PN ---
Subjective Date of Service: 11/01/20 Primary Care Provider: Dr. Retaan Chief Complaint: Acute renal failure, UTI Subjective: Improving (Pain is slightly improved, he reports overall feeling much better, urine continues to be cloudy glucose better controlled) Review of Systems 10-point ROS is otherwise unremarkable Physical Examination - Vital Signs Temperature: 97.8 F Blood Pressure: 113/62 Pulse: 84 Respirations: 18 Pulse Ox (%): 95 - Studies Microbiology Data (last 24 hrs): 10/29/20 17:12 Clean Catch Urine [place] Count - Final BETWEEN 10,000 & 100,000 CFU/ML 10/29/20 17:12 Clean Catch Urine - Final MIXED LIBERTAD. Assessment & Plan Physician Review Additional Text: Physical Exam General: Alert, NAD, Oriented x3 HEENT: Mucous membr. moist/pink, normal conjunctiva Respiratory: Clear to auscultation bilaterally, Normal air movement Cardiovascular: Regular rate/rhythm, Normal S1 S2 Abd: soft, mild TTP in suprapubic region, lower R flank discomfort Integumentary: no rash/lesions Problem List Acute renal failure secondary to chronic urinary retention S/P bilateral ureteral stenting complicated with urinary tract infection UTI, cysitis; h/o ESBL recently Diabetes mellitus type 2 with hyperglycemia, insulin dependent Hypertension -continue IV meropenem, h/o ESBL -1 blood culture growing GPC in clusters, vancomycin ordered, suspect contamination, awaiting final -initial urine culture grew mixed libertad, repeat NGTD - done after received IV antibiotics. May need to treat with continued ESBL coverage for 2 weeks, and will need PICC -pt has been noncompliant with medications and recommendations, refused ureteral stent removal, unless he would have full sedation -Nephrology consulted for assistance with TJ, improving -continue michel, patient should maintain michel until f/u with urology in ~2 weeks -significant hyperglycemia, improving. Patient has been noncompliant and not using his insulin for the last several days, adjust as needed -continue home medications -continue dilaudid and oxybutinin VTE: SCDs, hematuria Code: full Dispo: anticipate dc home in ~2 days, suspect will need PICC and IV antibiotics to cover for possible ESBL Time Spent Managing Pts Care (In Minutes): 35
[2020-11-01 21:12] LABS: Potassium 3.5 mmol/L (3.5-5.1)
[2020-11-01] MEDS: TAMSULOSIN 0.4 MG SR CAP PO SCH (21:37)
[2020-11-01] MEDS: VANCOMYCIN 2 GM in NA CHLORIDE 0.9% 500 ML IVPB SCH (21:39)
[2020-11-02] MEDS ORDERED: POTASSIUM CL SA 10 MEQ TAB PO ONE ×2 (01:00→09:00)
[2020-11-02] MEDS: HYDROMORPHONE HCL 1 MG/ML INJ IV PRN ×3 (01:46→22:24)
[2020-11-02 05:53] LABS: Absolute Lymphocytes (CBC) 3.4 K/uL (0.7-4.9); Basophils % 0.9 % (0-1.3); Hematocrit 29.3 % (39.6-49.0); Lymphocytes % 24.5 % (15.3-44.8); MPV 8.8 fL (7.6-11.3); RBC Red Blood Cell Count 3.34 M/uL (4.33-5.43)
[2020-11-02 06:18] LABS: Albumin 2.3 g/dL (3.4-5.0); Potassium 3.7 mmol/L (3.5-5.1)
[2020-11-02] MEDS: NICOTINE 14 MG/PAT TD SCH (09:00)
[2020-11-02] MEDS: ENOXAPARIN 30 MG/0.3 ML SQ SCH (09:54)
[2020-11-02] MEDS: METOPROLOL TAR 25 MG TAB PO SCH ×2 (09:55→20:57)
[2020-11-02] MEDS: OXYBUTYNIN CHLORIDE 5 MG TAB PO SCH ×2 (09:55→20:52)
[2020-11-02] MEDS: NA CHLORIDE 0.9% 1,000 ML IV SCH (09:55)
[2020-11-02] MEDS: Meropenem 1 GM/100 ML BAG IV SCH ×2 (09:55→21:32)
[2020-11-02] MEDS: INSULIN -REGULAR HUMAN 50 UNIT/0.5 ML ML SQ SCH ×4 (09:56→21:33)
[2020-11-02] MEDS: INSULIN 70/30 100 UNITS/ML SQ SCH ×2 (09:57→21:33)
--- NOTE | 2020-11-02 10:18 | P.PN ---
Subjective Date of Service: 11/02/20 Primary Care Provider: Dr. Retana Chief Complaint: Acute renal failure, UTI Subjective: Improving (slight improvement in pain, no longer with lower back pain, now mostly bladder discomfort, 10/10 at times. norco doesn't help, only dilaudid. urine continues to be cloudy) Review of Systems 10-point ROS is otherwise unremarkable Physical Examination - Vital Signs Temperature: 97.8 F Blood Pressure: 115/59 Pulse: 81 Respirations: 17 Pulse Ox (%): 95 - Studies Microbiology Data (last 24 hrs): 10/29/20 19:49 Blood - Blood Blood Culture Gram Stain - Final 10/29/20 17:12 Clean Catch Urine [place] Count - Final BETWEEN 10,000 & 100,000 CFU/ML 10/29/20 17:12 Clean Catch Urine - Final MIXED LIBERTAD. Assessment & Plan Physician Review Additional Text: Physical Exam General: Alert, appears slightly uncomfortable, Oriented x3 HEENT: Mucous membr. moist/pink, normal conjunctiva Respiratory: Clear to auscultation bilaterally, Normal air movement Cardiovascular: Regular rate/rhythm, Normal S1 S2, trace b/l pedal edema Abd: soft, mild TTP in suprapubic region Integumentary: no rash/lesions Problem List Acute renal failure secondary to chronic urinary retention S/P bilateral ureteral stenting complicated with urinary tract infection UTI, cysitis; h/o ESBL recently Diabetes mellitus type 2 with hyperglycemia, insulin dependent Hypertension -continue IV meropenem, h/o recent ESBL -1 blood culture: staph hominis, possible cause of UTI vs contaminant, was empirically treated with IV vanc, will switch to levaquin -initial urine culture grew mixed libertad, repeat NGTD - done after received IV antibiotics. May need to treat with continued ESBL coverage for 2 weeks, and will need PICC -Infectious disease consult for tomorrow -pt has been noncompliant with medications and recommendations, refused ureteral stent removal, unless he would have full sedation; seems more receptive now -Nephrology consulted for assistance with TJ, improving -continue michel, patient should maintain michel until f/u with urology in ~2 weeks -significant hyperglycemia, improving. Patient has been noncompliant and not using his insulin for the last several days, adjust as needed -continue home medications -continue dilaudid and oxybutinin VTE: SCDs, hematuria Code: full Dispo: anticipate dc home in ~2 days, suspect will need PICC and IV antibiotics to cover for possible ESBL Time Spent Managing Pts Care (In Minutes): 35
[2020-11-02] MEDS: Levofloxacin 750mg IV 750 MG/150 ML BAG IV SCH (11:00)
[2020-11-02] MEDS: HYDROCODONE/APAP 7.5/325 MG TAB PO PRN ×2 (12:54→20:52)
[2020-11-02] MEDS: TAMSULOSIN 0.4 MG SR CAP PO SCH (20:51)
[2020-11-02] MEDS ORDERED: VANCOMYCIN 2 GM in NA CHLORIDE 0.9% 500 ML IVPB SCH (22:00)
[2020-11-03] MEDS: NA CHLORIDE 0.9% 1,000 ML IV SCH (01:02)
[2020-11-03] MEDS: HYDROMORPHONE HCL 1 MG/ML INJ IV PRN ×3 (03:21→22:31)
[2020-11-03 05:34] LABS: Absolute Lymphocytes (CBC) 3.1 K/uL (0.7-4.9); Basophils % 1.1 % (0-1.3); Hematocrit 27.7 % (39.6-49.0); Lymphocytes % 24.7 % (15.3-44.8); MPV 8.4 fL (7.6-11.3); RBC Red Blood Cell Count 3.18 M/uL (4.33-5.43)
[2020-11-03 05:48] LABS: Albumin 2.2 g/dL (3.4-5.0); Magnesium 1.8 mg/dL (1.8-2.4); Phosphorus 2.9 mg/dL (2.5-4.9); Potassium 3.6 mmol/L (3.5-5.1)
[2020-11-03] MEDS: INSULIN -REGULAR HUMAN 50 UNIT/0.5 ML ML SQ SCH ×4 (07:30→21:00)
[2020-11-03] MEDS ORDERED: MAGNESIUM SULFATE 1 gm IVPB 1 GM/100 ML BAG IV ONE (09:00)
[2020-11-03] MEDS ORDERED: POTASSIUM CL SA 10 MEQ TAB PO ONE (09:00)
[2020-11-03] MEDS: ENOXAPARIN 30 MG/0.3 ML SQ SCH (09:00)
[2020-11-03] MEDS ORDERED: POTASSIUM 25 MEQ EFFERV TAB ONE (09:14)
[2020-11-03] MEDS: INSULIN 70/30 100 UNITS/ML SQ SCH ×2 (09:29→21:21)
[2020-11-03] MEDS: NICOTINE 14 MG/PAT TD SCH (09:30)
[2020-11-03] MEDS: OXYBUTYNIN CHLORIDE 5 MG TAB PO SCH ×3 (09:31→21:19)
[2020-11-03] MEDS: METOPROLOL TAR 25 MG TAB PO SCH ×2 (09:32→21:19)
[2020-11-03] MEDS: Meropenem 1 GM/100 ML BAG IV SCH ×2 (10:57→21:00)
[2020-11-03] MEDS: Levofloxacin 750mg IV 750 MG/150 ML BAG IV SCH (10:59)
--- NOTE | 2020-11-03 11:29 | CON ---
History Of Present Illness: The patient is a 40-year-old male coming in with urinary tract infection s and sepsis. The patient is resting currently in the hospital. He has and Herzog cathete r. The patient's urine initially was cloudy. He had ESBL E coli in the previous admission. At this time, urine culture does not grow any even though WBC is too numerous to count. The patient is feel ing slightly better. His has diabetes mellitus and hypertension and obesity. Bilateral _ was placed on his last admission. No nausea, vomiting, chest pain. Having abdominal disco mfort in the lower region of the suprapubic area. No other discomfort. Past Medical History: As per HPI. Social History: Tobacco positive, 1 pack per day for 10 years. Social alcohol use. Family History: Noncontributory. Medications: The patient is on Merrem and Levaquin. Allergies: NO KNOWN DRUG ALLERGIES. Review of Systems: A 10-point review was performed. Physical Examination: General: This is a 40-year-old male, lying in bed, not in any acute cardiopulmonary distress. Vital Signs: Temperature 97, pulse 69, respirations 16, blood pressure 148/90. HEENT: Unremarkable. Neck: Supple. Lungs: Clear to auscultation. Heart: S1, S2. Regular. Abdomen: Soft, nontender. Bowel sounds present. Extremity: No edema. Laboratory Data: Shows WBC 12.8, hemoglobin 9.7, platelets 369. Chemistry shows sodium 143, potassi um 3.6, chloride 116, bicarb 24, BUN 90, creatinine 1.3, glucose is 99. Micro data, blood culture on e set is showing Staph hominis, most likely contaminant. Repeat cultures are pending. Urine culture s are no growth for now. Previous cultures done in August 2020 show E coli ESBL. The patient was giv en Invanz and was noncompliant with antibiotic. Assessment And Plan: A 40-year-old male with recurrent urinary tract infection and sepsis secondary to ESBL E coli, noncompliant, currently on Merrem and Levaquin. We will recommend to continue Merrem for a total of 3 weeks, discontinue Levaquin. Continue supportive care. Staph hominis in blood mos t likely contaminant. Continue to monitor for other signs of infection and sepsis. Thank you Dr. Art for consult. NF/MODL Voice ID: [id number] Report ID: [id number]
--- NOTE | 2020-11-03 13:02 | P.PN ---
Subjective Date of Service: 11/03/20 Primary Care Provider: Dr. Retana Chief Complaint: Acute renal failure, UTI Subjective: Improving (slight improvement in pain, but still severe at times. urine clearing up, tolerating diet, glucose better with snacks and soda in room) Review of Systems 10-point ROS is otherwise unremarkable Physical Examination - Vital Signs Temperature: 98.0 F Blood Pressure: 144/93 Pulse: 71 Respirations: 16 Pulse Ox (%): 97 - Studies Microbiology Data (last 24 hrs): 10/29/20 19:49 Blood - Blood Aerobic Blood Culture - Final Staph Hominis 10/29/20 19:49 Blood - Blood Blood Culture Gram Stain - Final Assessment & Plan Physician Review Additional Text: Physical Exam General: Alert, appears slightly uncomfortable, Oriented x3 HEENT: Mucous membr. moist/pink, normal conjunctiva Respiratory: Clear to auscultation bilaterally, Normal air movement Cardiovascular: Regular rate/rhythm, Normal S1 S2, no edema Abd: soft, mild TTP in suprapubic region Integumentary: no rash/lesions Problem List Acute renal failure secondary to chronic urinary retention S/P bilateral ureteral stenting complicated with urinary tract infection recurrent UTI; h/o ESBL recently Diabetes mellitus type 2 with hyperglycemia, insulin dependent Hypertension -continue IV meropenem, h/o recent ESBL -1 blood culture: staph hominis, suspect contaminant, was empirically covered, will discontinue -initial urine culture grew mixed libertad, repeat NGTD - done after received IV antibiotics. May need to treat with continued ESBL coverage for 2 weeks, and will need PICC -ID consulted -pt has been noncompliant with medications and recommendations, refused ureteral stent removal, unless he would have full sedation; seems more receptive now -discussed when discharged, he will need to f/u for stent removal, will need to dc with michel catheter, as he had urinary retention on admission -Nephrology consulted for assistance with TJ, improved / resolved with IVF and michel -continue michel, patient should maintain michel until f/u with urology in ~2 weeks -significant hyperglycemia, improving. Patient has been noncompliant and not using his insulin for the last several days prior to admission; has soda/snacks in room -continue home medications -continue norco, oxybutinin, has dilaudid for breakthrough VTE: SCDs, pt had hematuria and is ambulatory Code: full Dispo: anticipate dc home in ~1-2 days, will need PICC and IV antibiotics to cover for possible ESBL Time Spent Managing Pts Care (In Minutes): 40
[2020-11-03] MEDS: HYDROCODONE/APAP 7.5/325 MG TAB PO PRN ×2 (14:32→21:20)
--- NOTE | 2020-11-03 21:12 | RAD REPORT ---
EXAM DESCRIPTION: RAD - Chest Single View - 11/03/2020 8:35 pm CLINICAL HISTORY: PICC line Placement COMPARISON: Portable September 17 TECHNIQUE: AP portable chest image was obtained 11/03/2020 8:35 pm . FINDINGS: Lungs are clear. Heart and vasculature are normal. No measurable pleural effusion and no p neumothorax. No acute bony abnormality seen. No acute aortic finding. Left-sided vascular access tubing in place. Patient had a PICC line on the September 17 study. A PICC gagan e or vascular access catheter is in place with the tip in the proximal SVC. IMPRESSION: Left upper extremity vascular access catheter with tip in the proximal SVC.
[2020-11-03] MEDS: TAMSULOSIN 0.4 MG SR CAP PO SCH (21:19)
[2020-11-04] MEDS: HYDROMORPHONE HCL 1 MG/ML INJ IV PRN ×3 (05:54→20:37)
[2020-11-04 06:29] LABS: Basophils % 1.1 % (0-1.3); Hematocrit 28.8 % (39.6-49.0); Lymphocytes % 24.4 % (15.3-44.8); RBC Red Blood Cell Count 3.26 M/uL (4.33-5.43)
[2020-11-04 06:46] LABS: Magnesium 1.8 mg/dL (1.8-2.4); Potassium 3.8 mmol/L (3.5-5.1)
[2020-11-04 06:56] LABS: C-Reactive Protein 2.96 mg/L (<3.00)
[2020-11-04] MEDS: INSULIN -REGULAR HUMAN 50 UNIT/0.5 ML ML SQ SCH ×4 (07:30→20:39)
[2020-11-04] MEDS ORDERED: POTASSIUM CL SA 10 MEQ TAB PO ONE (09:00)
[2020-11-04] MEDS: ENOXAPARIN 30 MG/0.3 ML SQ SCH (09:14)
[2020-11-04] MEDS: Meropenem 1 GM/100 ML BAG IV SCH ×2 (09:15→20:38)
[2020-11-04] MEDS: OXYBUTYNIN CHLORIDE 5 MG TAB PO SCH ×3 (09:15→20:36)
[2020-11-04] MEDS: NICOTINE 14 MG/PAT TD SCH (09:16)
[2020-11-04] MEDS: METOPROLOL TAR 25 MG TAB PO SCH ×2 (09:16→20:36)
[2020-11-04] MEDS: INSULIN 70/30 100 UNITS/ML SQ SCH ×2 (09:16→20:40)
--- NOTE | 2020-11-04 09:59 | P.PN ---
Subjective Date of Service: 11/04/20 Primary Care Provider: Dr. Retana Chief Complaint: Acute renal failure, UTI Patient seen examined at bedside, no acute complaints. Left arm PICC line placed yesterday for continuation of IV antibiotics. Review of Systems 10-point ROS is otherwise unremarkable Physical Examination - Vital Signs Temperature: 97.5 F Blood Pressure: 123/79 Pulse: 74 Respirations: 16 Pulse Ox (%): 97 - Physical Exam General: Alert, In no apparent distress HEENT: Atraumatic, Normocephalic Neck: Supple, 2+ carotid pulse no bruit Respiratory: Clear to auscultation bilaterally, Normal air movement Cardiovascular: No edema, Normal pulses, Other Gastrointestinal: Normal bowel sounds, Soft and benign, Distended, Tenderness (to left lower quadrent ) Musculoskeletal: No clubbing, No swelling Integumentary: No rashes, No breakdown - Studies Laboratory Last Values WBC 13.90 K/uL (4.3-10.9) H 10/29/20 17:24 RBC 4.05 M/uL (4.33-5.43) L 10/29/20 17:24 Hgb 11.9 g/dL (13.6-17.9) L 10/29/20 17:24 Hct 35.5 % (39.6-49.0) L 10/29/20 17:24 MCV 87.8 fL (80-100) 10/29/20 17:24 MCH 29.3 pg (27.0-35.0) 10/29/20 17:24 MCHC 33.4 g/dL (32.0-36.0) 10/29/20 17:24 RDW 14.3 % (12.1-15.2) 10/29/20 17:24 Plt Count 507 K/uL (152-406) H 10/29/20 17:24 MPV 8.5 fL (7.6-11.3) 10/29/20 17:24 Neutrophils % 66.4 % (41.7-73.7) 10/29/20 17:24 Lymphocytes % 18.0 % (15.3-44.8) 10/29/20 17:24 Monocytes % 12.7 % (3.3-12.3) H 10/29/20 17:24 Eosinophils % 2.4 % (0-4.4) 10/29/20 17:24 Basophils % 0.5 % (0-1.3) 10/29/20 17:24 Absolute Neutrophils 9.2 K/uL (1.8-8.0) H 10/29/20 17:24 Absolute Lymphocytes 2.5 K/uL (0.7-4.9) 10/29/20 17:24 Absolute Monocytes 1.8 K/uL (0.1-1.3) H 10/29/20 17:24 Absolute Eosinophils 0.3 K/uL (0-0.5) 10/29/20 17:24 Absolute Basophils 0.1 K/uL (0-0.5) 10/29/20 17:24 Sodium 129 mmol/L (136-145) L 10/29/20 17:24 Potassium 4.2 mmol/L (3.5-5.1) 10/29/20 17:24 Chloride 99 mmol/L (98-107) 10/29/20 17:24 Carbon Dioxide 22 mmol/L (21-32) 10/29/20 17:24 BUN 50 mg/dL (7-18) H 10/29/20 17:24 Creatinine 2.93 mg/dL (0.55-1.3) H 10/29/20 17:24 Estimated GFR 24 mL/min (=/>90) L 10/29/20 17:24 Glucose 578 mg/dL (74-106) H* 10/29/20 17:24 Lactic Acid 1.8 mmol/L (0.4-2.0) 10/29/20 19:49 Calcium 9.0 mg/dL (8.5-10.1) 10/29/20 17:24 Total Bilirubin 0.3 mg/dL (0.2-1.0) 10/29/20 17:24 Direct Bilirubin < 0.1 mg/dL (0-0.2) 10/29/20 17:24 AST 5 U/L (15-37) L 10/29/20 17:24 ALT 11 U/L (12-78) L 10/29/20 17:24 Alkaline Phosphatase 170 U/L (45-117) H 10/29/20 17:24 Serum Total Protein 8.4 g/dL (6.4-8.2) H 10/29/20 17:24 Albumin 3.0 g/dL (3.4-5.0) L 10/29/20 17:24 Globulin 5.4 g/dL (2.3-3.5) H 10/29/20 17:24 Albumin/Globulin Ratio 0.6 (1.1-1.8) L 10/29/20 17:24 Lipase 154 U/L (73-393) 10/29/20 17:24 Procalcitonin 15.48 ng/mL (<0.050) H 10/29/20 17:24 Urine pH 5.5 (5.0-7.0) 10/29/20 17:11 Ur Specific [place] 1.010 (1.005-1.030) 10/29/20 17:11 Glucose (UA)(Auto) 2+ (Negative) H 10/29/20 17:11 Urine Ketones Negative (Negative) 10/29/20 17:11 Urine Blood 2+ (Negative) H 10/29/20 17:11 Urine Nitrite Negative (Negative) 10/29/20 17:11 Ur Leukocyte Esterase 3+ (Negative) H 10/29/20 17:11 Urine Total Protein 2+ (Negative) H 10/29/20 17:11 Microbiology Data (last 24 hrs): 10/29/20 20:01 Blood - Blood Aerobic Blood Culture - Final No growth in 5 days. 10/29/20 20:01 Blood - Blood Anaerobic Blood Culture - Final No growth in 5 days. 10/29/20 19:49 Blood - Blood Aerobic Blood Culture - Final Staph Hominis 10/29/20 19:49 Blood - Blood Blood Culture Gram Stain - Final 10/29/20 19:49 Blood - Blood Anaerobic Blood Culture - Final No growth in 5 days. Assessment And Plan - Plan Antibiotics Meropenem Start: 10/30 Stop: 11/20 DC Levaquin Start: 11/02 stop: 11/03 Assessment: -ESBL E coli UTI -diabetes mellitus type 2 -obesity -anemia -TJ Plan: -continue IV meropenem for total duration of 3 weeks due to patient's history of recurrent urinary tract infections as well as bilateral urethral stent placement. Patient has left arm PICC line placed. -blood cultures: Blood cultures taken on 10/29 05/26 bottles grew Staph hominis repeat cultures taken on 06/13 showed no growth. Positive blood culture likely due to contamination. -leukocytosis: WBC still elevated however is down trending. -medical management per primary team -continue monitor for signs and symptoms of infection Plan of care discussed with Dr. Frye. Thank you for consultation
--- NOTE | 2020-11-04 11:31 | P.PN ---
Subjective Date of Service: 11/04/20 Primary Care Provider: Dr. Retana Chief Complaint: Acute renal failure, UTI patient seen/examined. reviewed with Dr. Dudley (hospitalist). clinically looks well. esbl/ureteral stents. ID following. on abx. renal function based on creatinine oveall staibilizing. still has michel in. vs stable. 123/79, pulse 74 regular rr 14 and comfortable. afebrile 02 sats mid 90s on room air. alert/in good mood. lungs cta cvs regula abd soft ext no edema. michel bag with yellow urine. a/p: uti/ureteral stents/ckd/tj/has indwelling michel: needs urology f/u. ? timing /need for change/removal of michel and ureteral stents. ? etiology of obstruction requiring the stents. on abx and will need it for 3 wks or so as per ID. high risk for sepsis. renal function stabilizing/volume status is euvolemic. bicarb/potassium ok. eating /drinking better. advised to keep hydrated. cr: 1.81 to 1.46 to 1.36 and now around 1.44. follows with Dr. Tobin. Advised to keep follow up for monitoring and evaluation of ckd. Physical Examination - Vital Signs Temperature: 97.5 F Blood Pressure: 123/79 Pulse: 74 Respirations: 16 Pulse Ox (%): 97 - Studies Microbiology Data (last 24 hrs): 10/29/20 20:01 Blood - Blood Aerobic Blood Culture - Final No growth in 5 days. 10/29/20 20:01 Blood - Blood Anaerobic Blood Culture - Final No growth in 5 days. 10/29/20 19:49 Blood - Blood Aerobic Blood Culture - Final Staph Hominis 10/29/20 19:49 Blood - Blood Blood Culture Gram Stain - Final 10/29/20 19:49 Blood - Blood Anaerobic Blood Culture - Final No growth in 5 days. Assessment And Plan Physician Review Additional Text: Physical Exam General: Alert, appears slightly uncomfortable, Oriented x3 HEENT: Mucous membr. moist/pink, normal conjunctiva Respiratory: Clear to auscultation bilaterally, Normal air movement Cardiovascular: Regular rate/rhythm, Normal S1 S2, no edema Abd: soft, mild TTP in suprapubic region Integumentary: no rash/lesions Problem List Acute renal failure secondary to chronic urinary retention S/P bilateral ureteral stenting complicated with urinary tract infection recurrent UTI; h/o ESBL recently Diabetes mellitus type 2 with hyperglycemia, insulin dependent Hypertension -continue IV meropenem, h/o recent ESBL -1 blood culture: staph hominis, suspect contaminant, was empirically covered, will discontinue -initial urine culture grew mixed libertad, repeat NGTD - done after received IV antibiotics. May need to treat with continued ESBL coverage for 2 weeks, and will need PICC -ID consulted -pt has been noncompliant with medications and recommendations, refused ureteral stent removal, unless he would have full sedation; seems more receptive now -discussed when discharged, he will need to f/u for stent removal, will need to dc with michel catheter, as he had urinary retention on admission -Nephrology consulted for assistance with TJ, improved / resolved with IVF and michel -continue michel, patient should maintain michel until f/u with urology in ~2 weeks -significant hyperglycemia, improving. Patient has been noncompliant and not using his insulin for the last several days prior to admission; has soda/snacks in room -continue home medications -continue norco, oxybutinin, has dilaudid for breakthrough VTE: SCDs, pt had hematuria and is ambulatory Code: full Dispo: anticipate dc home in ~1-2 days, will need PICC and IV antibiotics to cover for possible ESBL
--- NOTE | 2020-11-04 17:42 | P.PN ---
Subjective Date of Service: 11/04/20 Primary Care Provider: Dr. Retana Chief Complaint: Acute renal failure, UTI Acute renal failure significantly improved. Patient has no new complain. Physical Examination - Vital Signs Temperature: 97.8 F Blood Pressure: 148/94 Pulse: 78 Respirations: 16 Pulse Ox (%): 95 - Physical Exam General: Alert, In no apparent distress HEENT: Mucous membr. moist/pink Neck: Supple, JVD not distended Respiratory: Clear to auscultation bilaterally, Normal air movement Cardiovascular: No edema, Regular rate/rhythm, Normal S1 S2 Gastrointestinal: Soft and benign, Non-distended, No tenderness Musculoskeletal: No swelling, No tenderness Integumentary: No rashes Neurological: Normal speech, Normal strength at 5/5 x4 extr Urinary: Michel catheter - Studies Microbiology Data (last 24 hrs): 10/29/20 20:01 Blood - Blood Aerobic Blood Culture - Final No growth in 5 days. 10/29/20 20:01 Blood - Blood Anaerobic Blood Culture - Final No growth in 5 days. 10/29/20 19:49 Blood - Blood Aerobic Blood Culture - Final Staph Hominis 10/29/20 19:49 Blood - Blood Blood Culture Gram Stain - Final 10/29/20 19:49 Blood - Blood Anaerobic Blood Culture - Final No growth in 5 days. Assessment And Plan Physician Review Additional Text: Problem List Acute renal failure secondary to chronic urinary retention S/P bilateral ureteral stenting complicated with urinary tract infection recurrent UTI; h/o ESBL recently Diabetes mellitus type 2 with hyperglycemia, insulin dependent Hypertension -continue IV meropenem, h/o recent ESBL -1 blood culture: staph hominis, likely skin contaminants. Repeat blood c ultures negative. -initial urine culture grew mixed libertad, repeat NGTD - done after received IV antibiotics. May need to treat with continued ESBL coverage for 2 weeks, and will need PICC -ID input appreciated. 3 weeks of IV antibiotics recommended. -pt has been noncompliant with medications and recommendations, refused ureteral stent removal, unless he would have full sedation; seems more receptive now. -Case discussed with Dr. Jaquez, Urologist at [facility] for possible transfer for stent removal or exchange. According to Dr. Jaquez, it would be best to treat the UTI before any procedure for stent removal or exchange. -Nephrology consulted for assistance with TJ. TJ improved. -continue michel, patient should maintain michel until f/u with urology in ~2 weeks -blood sugar readings are better today. Continue current insulin regimen. -continue norco, oxybutinin. VTE: SCDs, pt had hematuria and is ambulatory Code: full Dispo: anticipate dc home in ~1-2 days, PICC and outpatient IV antibiotics to complete treatment for ESBL.
[2020-11-04] MEDS: TAMSULOSIN 0.4 MG SR CAP PO SCH (20:36)
[2020-11-05 00:43] VITALS: O2SAT 95
[2020-11-05] MEDS: HYDROMORPHONE HCL 1 MG/ML INJ IV PRN (05:29)
[2020-11-05] MEDS: INSULIN -REGULAR HUMAN 50 UNIT/0.5 ML ML SQ SCH ×2 (07:30→11:30)
[2020-11-05] MEDS: INSULIN 70/30 100 UNITS/ML SQ SCH (07:49)
[2020-11-05] MEDS: NICOTINE 14 MG/PAT TD SCH (09:29)
[2020-11-05] MEDS: ENOXAPARIN 30 MG/0.3 ML SQ SCH (09:29)
[2020-11-05] MEDS: OXYBUTYNIN CHLORIDE 5 MG TAB PO SCH (09:29)
[2020-11-05] MEDS: METOPROLOL TAR 25 MG TAB PO SCH (09:29)
[2020-11-05] MEDS: Meropenem 1 GM/100 ML BAG IV SCH (09:30)
--- NOTE | 2020-11-05 10:15 | P.PN ---
Subjective Date of Service: 11/05/20 Primary Care Provider: Dr. Retana Chief Complaint: Acute renal failure, UTI Patient seen examined at bedside, no acute complaints. No new labs back as of yet today. Review of Systems 10-point ROS is otherwise unremarkable Physical Examination - Vital Signs Temperature: 97.9 F Blood Pressure: 130/82 Pulse: 64 Respirations: 16 Pulse Ox (%): 95 Assessment And Plan - Plan General: Alert, In no apparent distress HEENT: Atraumatic, Normocephalic Neck: Supple, 2+ carotid pulse no bruit Respiratory: Clear to auscultation bilaterally, Normal air movement Cardiovascular: No edema, Normal pulses, Other Gastrointestinal: Normal bowel sounds, Soft and benign, Distended, Tenderness (to left lower quadrent ) Musculoskeletal: No clubbing, No swelling Integumentary: No rashes, No breakdown Antibiotics Meropenem Start: 10/30 Stop: 11/20 DC Levaquin Start: 11/02 stop: 11/03 Assessment: -ESBL E coli UTI -diabetes mellitus type 2 -obesity -anemia -TJ Plan: -continue IV meropenem for total duration of 3 weeks due to patient's history of recurrent urinary tract infections as well as bilateral urethral stent placement. Patient has left arm PICC line placed. -blood cultures: Blood cultures taken on 10/29 05/26 bottles grew Staph hominis repeat cultures taken on 11/02 showed no growth. Positive blood culture likely due to contamination. -leukocytosis: WBC still elevated however is down trending. -medical management per primary team -continue monitor for signs and symptoms of infection Plan of care discussed with Dr. Frye. Thank you for consultation Physician Review Additional Text: Problem List Acute renal failure secondary to chronic urinary retention S/P bilateral ureteral stenting complicated with urinary tract infection recurrent UTI; h/o ESBL recently Diabetes mellitus type 2 with hyperglycemia, insulin dependent Hypertension -continue IV meropenem, h/o recent ESBL -1 blood culture: staph hominis, likely skin contaminants. Repeat blood cultures negative. -initial urine culture grew mixed libertad, repeat NGTD - done after received IV antibiotics. May need to treat with continued ESBL coverage for 2 weeks, and will need PICC -ID input appreciated. 3 weeks of IV antibiotics recommended. -pt has been noncompliant with medications and recommendations, refused ureteral stent removal, unless he would have full sedation; seems more receptive now. -Case discussed with Dr. Jaquez, Urologist at [facility] for possible transfer for stent removal or exchange. According to Dr. Jaquez, it would be best to treat the UTI before any procedure for stent removal or exchange. -Nephrology consulted for assistance with TJ. TJ improved. -continue michel, patient should maintain michel until f/u with urology in ~2 weeks -blood sugar readings are better today. Continue current insulin regimen. -continue norco, oxybutinin. VTE: SCDs, pt had hematuria and is ambulatory Code: full Dispo: anticipate dc home in ~1-2 days, PICC and outpatient IV antibiotics to complete treatment for ESBL.
[2020-11-05] MEDS: HYDROCODONE/APAP 7.5/325 MG TAB PO PRN (12:17)
[2020-11-05 12:32] VITALS: BP 141/93; TEMP 98.4
--- NOTE | 2020-11-05 12:40 | P.DS ---
Admission Date: 10/29/20 Discharge Date: 11/05/20 Primary Care Provider: Dr. Retana Disposition: ROUTINE DISCHARGE Discharge Condition: FAIR Reason for Admission: Acute renal failure, UTI Brief History of Present Illness: 40-year-old gentleman with a history of diabetes mellitus type 2, hypertension, urinary retention presented to the emergency department with a complaint of urinary retention back pain and suprapubic pain. He was recently admitted for urinary retention hydronephrosis acute renal failure and UTI with E. his BAL infection. Patient was treated with IV meropenem, had urethral stent placed bilaterally, needed a Michel catheter throughout admission and subsequently discharged with a Michel catheter retained. Keep followed up with urology as an outpatient a week later to have the stent removed. Patient refused to have the stent removed without general anesthesia. This time in the ED, his creatinine noted to be 2.93, glucose elevated to 578, pro calcitonin was 15.48. UA suggested the presence of UTI. Urology was contacted who recommended removal of the ureteral stent at some point. Patient was admitted for further management. Hospital Course: Diagnosis Acute renal failure secondary to chronic urinary retention S/P bilateral ureteral stenting complicated with urinary tract infection recurrent UTI; h/o ESBL recently Diabetes mellitus type 2 with hyperglycemia, insulin dependent Hypertension Patient admitted to the medical floor -he was treated with IV meropenem given h/o recent ESBL -1 blood culture: staph hominis, likely skin contaminants. Repeat blood cultures negative. -initial urine culture grew mixed libertad, repeat urine culture yielded no growth. Patient seen by ID who recommended to treat ESBL for 3 weeks. -PICC line placed -Pt has been noncompliant with medications and recommendations, refused ureteral stent removal without general anesthesia but now eceptive to having the stent removed. -Case discussed with Dr. Jaquez, Urologist at [facility] for possible transfer for stent removal or exchange. According to Dr. Jaquez, it would be best to treat the UTI before any procedure for stent removal or exchange. Case also discussed with Dr. Acosta who recommended outpatient follow up with him in the office for the stent removal after he has been adequately treated with antibiotics. -Nephrology consulted for assistance with TJ. TJ improved with treatment. -continued micehl, patient should maintain michel until f/u with urology in ~2 weeks -blood sugar was managed with insulin sliding scale and Novolin 70/30. - patient discharged with Novolin 70/30 30 units b.i.d. -also continue Flomax. -patient briefly treated with oxybutynin. -he is discharged to continue outpatient IV Invanz to be administered in this facility. Vital Signs/Physical Exam: Temp Pulse Resp BP Pulse Ox 98.4 F 69 18 141/93 H 96 11/05/20 12:00 11/05/20 12:00 11/05/20 12:17 11/05/20 12:00 11/05/20 12:17 General: Alert, In no apparent distress, Oriented x3 HEENT: Mucous membr. moist/pink Neck: Supple, JVD not distended Respiratory: Clear to auscultation bilaterally, Normal air movement Cardiovascular: No edema, Regular rate/rhythm, Normal S1 S2 Gastrointestinal: Soft and benign, Non-distended, No tenderness Musculoskeletal: No swelling, No tenderness Integumentary: No rashes Neurological: Normal speech, Normal strength at 5/5 x4 extr Urinary: Michel catheter Laboratory Data at Discharge: WBC 12.30 K/uL (4.3-10.9) H 11/04/20 06:00 Hgb 9.8 g/dL (13.6-17.9) L 11/04/20 06:00 Hct 28.8 % (39.6-49.0) L 11/04/20 06:00 Plt Count 373 K/uL (152-406) 11/04/20 06:00 Sodium 144 mmol/L (136-145) 11/04/20 06:00 Potassium 3.8 mmol/L (3.5-5.1) 11/04/20 06:00 BUN 16 mg/dL (7-18) 11/04/20 06:00 Creatinine 1.44 mg/dL (0.55-1.3) H 11/04/20 06:00 Glucose 99 mg/dL (74-106) 11/04/20 06:00 Uric Acid 10.3 mg/dL (3.5-7.2) H D 10/31/20 05:05 Phosphorus Cancelled 11/03/20 05:00 Magnesium 1.8 mg/dL (1.8-2.4) 11/04/20 06:00 Total Bilirubin 0.2 mg/dL (0.2-1.0) 11/01/20 05:07 AST 7 U/L (15-37) L 11/01/20 05:07 ALT 10 U/L (12-78) L 11/01/20 05:07 Alkaline Phosphatase 108 U/L (45-117) 11/01/20 05:07 Triglycerides 369 mg/dL (<150) H 11/03/20 04:54 Lipase 154 U/L (73-393) 10/29/20 17:24 Home Medications: Folic Acid 1 mg PO DAILY 10/30/20 Metoprolol Tartrate 25 mg PO BID 10/30/20 Nicotine [Nicoderm*] 14 mg TD DAILY 10/30/20 Tramadol HCl [Ultram] 50 mg PO TID PRN 10/30/20 hydroCHLOROthiazide [Hydrochlorothiazide] 25 mg PO DAILY 10/30/20 Ertapenem Na [Invanz] 1 gm IVPB DAILY #14 vial 11/05/20 Insulin 70/30 NPH/Reg Human [Novolin 70/30*] 30 unit SQ BID #10 ml 11/05/20 Tamsulosin [Flomax*] 0.4 mg PO BEDTIME #30 cap 11/05/20 New Medications: Tamsulosin [Flomax*] 0.4 mg PO BEDTIME #30 cap Ertapenem Na [Invanz] 1 gm IVPB DAILY #14 vial Insulin 70/30 NPH/Reg Human [Novolin 70/30*] 30 unit SQ BID #10 ml Followup: OOT,OOT [Primary Care Provider] - Burt Acosta [ACTIVE - CAN ADMIT] - (Within 2 weeks.) Time spent managing pt's care (in minutes): 37
[2020-11-06] MEDS ORDERED: ENOXAPARIN 40 MG/0.4 ML SQ SCH (09:00)
== END 2020-11-05 15:16 | disposition home or self-care (01) | DRG 683 ==
LOC: ER 15:45 → ERHOLD 20:21 → 2ND 23:41
PROVIDERS: ADMIT Hospitalist; ATTEND Hospitalist
PROC: 02HV33Z Insertion of Infusion Device into Superior Vena Cava, Percutaneous Approach (ICD-10-PCS; principal; 2020-11-03)
DX: N17.9 Acute kidney failure, unspecified (principal); N39.0 Urinary tract infection, site not specified; Z16.12 Extended spectrum beta lactamase (ESBL) resistance; Z68.41 Body mass index [BMI] 40.0-44.9, adult; E87.1 Hypo-osmolality and hyponatremia; R33.9 Retention of urine, unspecified; E11.65 Type 2 diabetes mellitus with hyperglycemia; I10 Essential (primary) hypertension; B96.20 Unspecified Escherichia coli [E. coli] as the cause of diseases classified elsewhere; E66.9 Obesity, unspecified; E87.6 Hypokalemia; D64.9 Anemia, unspecified; Z79.4 Long term (current) use of insulin; Z20.822 Contact with and (suspected) exposure to COVID-19; Z91.14 Patient's other noncompliance with medication regimen
CPT/HCPCS: 36415; 36569; 51702; 71045; 74176; 76377; 80048; 80053; 80069; 80076; 80202; 81001; 81003; 81015; 82435; 82570; 82947; 83605; 83690; 83735; 83880; 83930; 83935; 84100; 84132; 84145; 84156; 84300; 84478; 84550; 85025; 86140; 87040; 87077; 87086; 87088; 87186; 87205; 96365; 96366; 96372; 96375; 99285; J1170; J1650; J1815; J1940; J2185; J2270; J2405; J3370; J3475; J7030; J7040; U0003

== ENCOUNTER 2020-11-12 12:13 | Emergency (ER) | payer SELFPAY ==
--- NOTE | 2020-11-12 15:11 | EDPHYS ---
Physician Documentation [facility] Name: Alex Skaggs Age: 40 yrs Sex: Male : 1980 Arrival Date: 11/12/2020 Time: 12:15 Bed 26 Private MD: ED Physician Patrick Art HPI: 11/12 14:40 This 40 yrs old Male presents to ER via Ambulatory with complaints of Urinary cp Cath Removal. 14:40 The patient presents with requests removal of Michel catheter. cp 14:40 Patient reports Michel catheter was placed 2 weeks ago during hospitalization and cp patient was instructed to have catheter removed in [address] Acosta. reports patient recently received letter informing them patient would be unable to f/u with DR Acosta for unknown reason so they are currently in process of finding new urologist to f/u. No complaints expressed today. Historical: - Allergies: 12:29 No Known Allergies; tw2 - PMHx: 12:29 Diabetes - NIDDM; kidney infection; Hypertension; tw2 - Immunization history:: Adult Immunizations. - Social history:: Smoking status: . ROS: 14:45 Eyes: Negative for injury, pain, redness, and discharge. cp 14:45 Constitutional: Negative for body aches, chills, fever, poor PO intake. 14:45 ENT: Negative for ear pain, sore throat, difficulty swallowing, difficulty handling secretions. 14:45 Cardiovascular: Negative for chest pain, palpitations. 14:45 Respiratory: Negative for cough, shortness of breath, wheezing. 14:45 Abdomen/GI: Negative for abdominal pain, nausea, vomiting, and diarrhea. 14:45 Back: Negative for radiated pain. 14:45 : Negative for urinary symptoms, testicular pain 14:45 Neuro: Negative for altered mental status, headache. 14:45 All other systems are negative. Exam: 14:47 Constitutional: The patient appears in no acute distress, alert, awake, comfortable, cp non-toxic, well developed, well nourished. 14:47 Head/Face: Normocephalic, atraumatic. cp 14:47 Chest/axilla: Inspection: normal. 14:47 Cardiovascular: Rate: normal. 14:47 Respiratory: the patient does not display signs of respiratory distress, Respirations: normal, no use of accessory muscles, no retractions. 14:47 Abdomen/GI: Inspection: abdomen appears normal, Palpation: abdomen is soft and non-tender, in all quadrants. 14:47 Neuro: Orientation: to person, place \T\ time. Mentation: is normal. Vital Signs: 12:27 BP 131 / 100; Pulse 88; Resp 17; Temp 98(TE); Pulse Ox 99% on R/A; tw2 MDM: 14:40 Patient medically screened. cp 15:05 Differential diagnosis: UTI, urinary retention, Michel catheter problem. cp 15:10 Data reviewed: vital signs, nurses notes, and as a result, I will discharge patient. cp 15:10 Counseling: I had a detailed discussion with the patient and/or guardian regarding: the cp historical points, exam findings, and any diagnostic results supporting the discharge/admit diagnosis. Administered Medications: No medications were administered Disposition: 11/12/20 15:11 Discharged to Home. Impression: Encounter for attention to dressings, sutures and drains - removal of michel catheter. - Condition is Stable. - Prescriptions for nystatin 100,000 unit/gram Topical ointment - apply 1 application by TOPICAL route 3 times per day for 8-10 days; 30 gram. - Medication Reconciliation Form, Thank You Letter, Antibiotic Education, Prescription Opioid Use form. - Follow up: Romaine Romano MD; When: 1 - 2 days; Reason: Recheck today's complaints. - Problem is an ongoing problem. - Symptoms have improved. Addendum: 11/17/2020 07:03 Co-signature as Attending Physician, Patrick Art MD. r n Signatures: Patrick Art MD MD rn Page, Corey, PA PA cp Adriane Burt RN RN tw2 Ana Retana RN RN vg1 Corrections: (The following items were deleted from the chart) 11/12 15:19 15:11 11/12/2020 15:11 Discharged to Home. Impression: Encounter for attention to vg1 dressings, sutures and drains - removal of michel catheter. Condition is Stable. Forms are Medication Reconciliation Form, Thank You Letter, Antibiotic Education, Prescription Opioid Use. Follow up: Romaine Romano; When: 1 - 2 days; Reason: Recheck today's complaints. Problem is an ongoing problem. Symptoms have improved. cp 11/13 11:31 11:28 Constitutional: Negative for body aches, chills, fever, poor PO intake, cp cp 11: Cardiovascular: Negative for chest pain, palpitations, cp cp : Eyes: Negative for injury, pain, redness, and discharge, cp cp : ENT: Negative for ear pain, sore throat, difficulty swallowing, difficulty cp handling secretions, cp : Respiratory: Negative for cough, shortness of breath, wheezing, cp cp : Abdomen/GI: Negative for abdominal pain, nausea, vomiting, and diarrhea, cp cp : Back: Negative for radiated pain, cp cp : : Negative for urinary symptoms, testicular pain cp cp : Neuro: Negative for altered mental status, headache, cp cp : All other systems are negative, cp cp
--- NOTE | 2020-11-12 15:11 | ER ---
Nurse's Notes [facility] Name: Alex Skaggs Age: 40 yrs Sex: Male : 1980 Arrival Date: 11/12/2020 Time: 12:15 Bed 26 Private MD: Diagnosis: Encounter for attention to dressings, sutures and drains-removal of michel catheter Presentation: 11/12 12:27 Chief complaint: Patient states: i got this catheter in 2 weeks ago and the doctor told tw2 me i should have it removed in 2 weeks. i was discharged from here a week ago and home for a week and so its 2 weeks. Coronavirus screen: At this time, the client does not indicate any symptoms associated with coronavirus-19. Ebola Screen: Patient denies travel to an Ebola-affected area in the 21 days before illness onset. Initial Sepsis Screen: Does the patient meet any 2 criteria? No. Patient's initial sepsis screen is negative. Does the patient have a suspected source of infection? No. Patient's initial sepsis screen is negative. Risk Assessment: Do you want to hurt yourself or someone else? Patient reports no desire to harm self or others. Onset of symptoms was November 12, 2020. 12:27 Method Of Arrival: Ambulatory tw2 12:27 Acuity: MIKIE 3 tw2 Triage Assessment: 12:29 General: Appears in no apparent distress. obese, well groomed, Behavior is calm, tw2 cooperative, appropriate for age. Pain: Denies pain. : to gravity drainage in place for 2 weeks, yellow urine noted in specimen collection bag. Historical: - Allergies: 12:29 No Known Allergies; tw2 - PMHx: 12:29 Diabetes - NIDDM; kidney infection; Hypertension; tw2 - Immunization history:: Adult Immunizations. - Social history:: Smoking status: . Screenin:00 Abuse screen: Denies threats or abuse. Nutritional screening: No deficits noted. vg1 Tuberculosis screening: No symptoms or risk factors identified. Fall Risk No fall in past 12 months (0 pts). No secondary diagnosis (0 pts). No IV (0 pts). Ambulatory Aid- None/Bed Rest/Nurse Assist (0 pts). Gait- Normal/Bed Rest/Wheelchair (0 pts) Mental Status- Oriented to own ability (0 pts). Total Salvador Fall Scale indicates No Risk (0-24 pts). Assessment: 14:59 General: Appears in no apparent distress. comfortable. Pain: Denies pain. Neuro: Level vg1 of Consciousness is awake, alert, obeys commands, Oriented to person, place, time, situation. Cardiovascular: Patient's skin is warm and dry. Respiratory: Airway is patent Respiratory effort is even, unlabored. GI: No signs and/or symptoms were reported involving the gastrointestinal system. : Michel in place Urine is clear. EENT: No signs and/or symptoms were reported regarding the EENT system. Derm: Skin is intact, is healthy with good turgor. Musculoskeletal: Circulation, motion, and sensation intact. Vital Signs: 12:27 BP 131 / 100; Pulse 88; Resp 17; Temp 98(TE); Pulse Ox 99% on R/A; tw2 ED Course: 12:15 Patient arrived in ED. wm 12:29 Triage completed. tw2 12:31 Arm band placed on. tw2 14:39 Ana Retana, RN is Primary Nurse. vg1 14:39 Laron Sandhu PA is PHCP. cp 14:39 Patrick Art MD is Attending Physician. cp 15:00 Patient has correct armband on for positive identification. Bed in low position. Call vg1 light in reach. Side rails up X 1. Adult w/ patient. 15:10 Romaine Romano MD is Referral Physician. cp 15:18 No provider procedures requiring assistance completed. Patient did not have IV access vg1 during this emergency room visit. Administered Medications: No medications were administered Outcome: 15:11 Discharge ordered by . cp 15:18 Discharged to home ambulatory. vg1 15:18 Condition: stable 15:18 Discharge instructions given to patient, Instructed on discharge instructions, follow up and referral plans. medication usage, Demonstrated understanding of instructions, follow-up care, medications, Prescriptions given X 1. 15:19 Patient left the ED. vg1 Signatures: Laron Sandhu PA PA cp Wise, Tara, RN RN tw2 Ana Retana RN RN vg1 Christina Hdez
[2020-11-12 15:48] VITALS: BP 131/100; TEMP 98; O2SAT 99
== END 2020-11-12 15:19 | disposition home or self-care (01) ==
LOC: ER 12:13
DX: Z46.6 Encounter for fitting and adjustment of urinary device (principal)
CPT/HCPCS: 99282

== ENCOUNTER 2020-12-23 03:30 | Emergency (ER) | payer SELFPAY ==
[2020-12-23 04:55] LABS: Absolute Lymphocytes (CBC) 3.1 K/uL (0.7-4.9); Basophils % 1.1 % (0-1.3); Hematocrit 35.6 % (39.6-49.0); MPV 8.4 fL (7.6-11.3); RBC Red Blood Cell Count 3.93 M/uL (4.33-5.43)
[2020-12-23 05:12] LABS: ALT/SGPT 19 U/L (12-78); AST/SGOT 9 U/L (15-37); Albumin 3.5 g/dL (3.4-5.0); Alkaline Phosphatase 158 U/L (45-117); BUN Blood Urea Nitrogen 25 mg/dL (7-18); Bicarbonate 23 mmol/L (21-32); Bilirubin Direct < 0.1 mg/dL (0-0.2); Bilirubin Total 0.3 mg/dL (0.2-1.0); Glucose Level 263 mg/dL (74-106); Lipase 134 U/L (73-393); Potassium 3.9 mmol/L (3.5-5.1); Protein, Total 8.4 g/dL (6.4-8.2); Sodium Level 137 mmol/L (136-145)
[2020-12-23] MEDS ORDERED: ONDANSETRON 4 MG/2 ML VIAL ONE ×2 (05:14→10:08)
[2020-12-23] MEDS ORDERED: NA CHLORIDE 0.9% 1,000 ML ONE (05:14)
[2020-12-23] MEDS ORDERED: MORPHINE 4 MG/ML SYR ONE (05:14)
[2020-12-23] MEDS ORDERED: CEFTRIAXONE 1000 MG/VIAL ONE (05:15)
[2020-12-23 05:18] LABS: Urine Blood 3+ (Negative); Urine Glucose Negative (Negative); Urine Protein 2+ (Negative); Urine Specific Gravity 1.015 (1.005-1.030); Urine pH 5.5 (5.0-7.0)
[2020-12-23] MEDS ORDERED: CIPROFLOXACIN HCL 500 MG TAB ONE (06:24)
[2020-12-23] MEDS ORDERED: SMZ./TMP. 800/160 MG TABLET ONE (07:06)
--- NOTE | 2020-12-23 07:45 | RAD REPORT ---
EXAM DESCRIPTION: RAD - Chest Single View - 12/23/2020 7:22 am CLINICAL HISTORY: COUGH COMPARISON: Chest Single View dated 11/03/2020; Chest Single View dated 09/17/2020; Chest Single View dated 09/09/2020 FINDINGS: Low lung volumes accentuates the pulmonary vasculature. Cardiomegaly.No acute osseous abno rmality. No significant pleural effusions or pneumothorax. IMPRESSION: Low lung volumes accentuate the pulmonary vasculature. No consolidative airspace disease or clear evidence of edema identified.
--- NOTE | 2020-12-23 09:08 | EDPHYS ---
Physician Documentation [facility] Name: Alex Skaggs Age: 40 yrs Sex: Male : 1980 Arrival Date: 12/23/2020 Time: 03:33 Bed 8 Private MD: ERIK Physician Laron Pham HPI: 12/23 04:28 This 40 yrs old Male presents to ER via Ambulatory with complaints of Low Back karen Pain, Bladder Pain, Urinating blood. 04:28 The patient presents with pain that is acute, with no known mechanism of injury. The karen symptoms are located in the low back, lumbar area, left low back, left mid back, right mid back and right low back. The pain does not radiate. The problem was sustained from unknown cause. Onset: The symptoms/episode began/occurred 3 day(s) ago. Modifying factors: The patient symptoms are alleviated by nothing, the patient symptoms are aggravated by nothing. 04:29 Associated signs and symptoms: Pertinent positives: abdominal pain, dysuria. The karen patient presents with abdominal pain in the lower abdomen, abdominal distention in the upper abdomen, in the lower abdomen. The patient presents with urinary symptoms, dysuria, urinary frequency. Historical: - Allergies: 04:03 No Known Allergies; bb - Home Meds: 04:03 gabapentin oral [Active]; Oxybutynin Chloride Oral [Active]; Metoprolol Tartrate Oral bb [Active]; Hydrochlorothiazide Oral [Active]; tamsulosin oral [Active]; Insulin: Regular Sub-Q [Active]; Novolin 70/30 [place] Sub-Q [Active]; - PMHx: 04:03 Hypertension; kidney infection; IDDM; bb - PSHx: 04:03 kidney stents; bb - Immunization history:: Adult Immunizations up to date, Client reports having NOT received the Covid vaccine. - Social history:: Smoking status: Patient reports the use of cigarette tobacco products, smokes one pack cigarettes per day. - Family history:: not pertinent. ROS: 04:29 Constitutional: Negative for fever, chills, and weight loss, Eyes: Negative for injury, kaern pain, redness, and discharge, ENT: Negative for injury, pain, and discharge, Neck: Negative for injury, pain, and swelling, Cardiovascular: Negative for chest pain, palpitations, and edema, Respiratory: Negative for shortness of breath, cough, wheezing, and pleuritic chest pain, MS/Extremity: Negative for injury and deformity, Skin: Negative for injury, rash, and discoloration, Neuro: Negative for headache, weakness, numbness, tingling, and seizure, Psych: Negative for depression, anxiety, suicide ideation, homicidal ideation, and hallucinations, Allergy/Immunology: Negative for hives, rash, and allergies, Endocrine: Negative for neck swelling, polydipsia, polyuria, polyphagia, and marked weight changes, Hematologic/Lymphatic: Negative for swollen nodes, abnormal bleeding, and unusual bruising. 04:29 Abdomen/GI: Positive for abdominal pain, of the posterior aspect of left lateral abdomen, posterior aspect of right lateral abdomen, right lower quadrant and left lower quadrant. 04:29 : Positive for small amounts, hematuria. Exam: 04:29 Constitutional: This is a well developed, well nourished patient who is awake, alert, karen and in no acute distress. Head/Face: Normocephalic, atraumatic. Eyes: Pupils equal round and reactive to light, extra-ocular motions intact. Lids and lashes normal. Conjunctiva and sclera are non-icteric and not injected. Cornea within normal limits. Periorbital areas with no swelling, redness, or edema. ENT: Nares patent. No nasal discharge, no septal abnormalities noted. Tympanic membranes are normal and external auditory canals are clear. Oropharynx with no redness, swelling, or masses, exudates, or evidence of obstruction, uvula midline. Mucous membranes moist. Neck: Trachea midline, no thyromegaly or masses palpated, and no cervical lymphadenopathy. Supple, full range of motion without nuchal rigidity, or vertebral point tenderness. No Meningismus. Chest/axilla: Normal chest wall appearance and motion. Nontender with no deformity. No lesions are appreciated. Cardiovascular: Regular rate and rhythm with a normal S1 and S2. No gallops, murmurs, or rubs. Normal PMI, no JVD. No pulse deficits. Respiratory: Lungs have equal breath sounds bilaterally, clear to auscultation and percussion. No rales, rhonchi or wheezes noted. No increased work of breathing, no retractions or nasal flaring. Male : Normal genitalia with no discharge or lesions. Skin: Warm, dry with normal turgor. Normal color with no rashes, no lesions, and no evidence of cellulitis. MS/ Extremity: Pulses equal, no cyanosis. Neurovascular intact. Full, normal range of motion. Neuro: Awake and alert, GCS 15, oriented to person, place, time, and situation. Cranial nerves II-XII grossly intact. Motor strength 5/5 in all extremities. Sensory grossly intact. Cerebellar exam normal. Normal gait. Psych: Awake, alert, with orientation to person, place and time. Behavior, mood, and affect are within normal limits. 04:29 Abdomen/GI: Inspection: distension, Bowel sounds: normal, Palpation: nontender, Liver: no appreciated palpable abnormalities, Hernia: not appreciated. 04:29 Back: Exam negative for acute changes, CVA tenderness, decreased ROM, deformity, ecchymosis injury, muscle spasm, pain at rest, painful ROM, scoliosis, vertebral tenderness. Vital Signs: 03:59 BP 151 / 107; Pulse 95; Resp 30 S; Temp 98.6; Pulse Ox 100% on R/A; Weight 113.4 kg bb (R); Height 5 ft. 4 in. (162.56 cm) (R); Pain 10/10; 06:00 BP 173 / 92; Pulse 88; Resp 26; Pulse Ox 96% on R/A; jb4 06:34 BP 171 / 115; Pulse 88; Resp 20; Pulse Ox 98% on R/A; jb4 09:40 Temp 98.1(O); tr6 03:59 Body Mass Index 42.91 (113.40 kg, 162.56 cm) bb MDM: 04:20 Patient medically screened. karen 04:32 Differential diagnosis: UTI, nonspecific abdominal pain, UTI, urinary retention, karen prostatitis. Data reviewed: vital signs, nurses notes, lab test result(s), radiologic studies, CT scan. Data interpreted: pharmaceutical operator: rate is 95 beats/min, rhythm is regular, Pulse oximetry: on room air is 100 %. Test interpretation: by ED physician or midlevel provider: ECG, plain radiologic studies. Counseling: I had a detailed discussion with the patient and/or guardian regarding: the historical points, exam findings, and any diagnostic results supporting the discharge/admit diagnosis, lab results, radiology results. 09:03 Physician consultation: Burt Acosta MD and will see patient in office, dr Acosta karen very familiar with this patient, recommends Herzog to gravity, abx , follow up in the office for treatment. 12/23 04:22 Order name: Glucose, Ancillary Testing; Complete Time: 05:24 EDMS 12/23 04:23 Order name: Glucose, Ancillary Testing; Complete Time: 05:24 EDMS 12/23 04:28 Order name: Basic Metabolic Panel [facility] 12/23 04:28 Order name: CBC with Diff [facility] 12/23 04:28 Order name: Hepatic Function [facility] 12/23 04:28 Order name: Lipase [facility] 12/23 04:28 Order name: Urine Culture [facility] 12/23 04:29 Order name: Basic Metabolic Panel; Complete Time: 05:24 EDMS 12/23 04:29 Order name: CBC with Automated Diff; Complete Time: 05:24 EDMS 12/23 04:29 Order name: Liver (Hepatic) Function; Complete Time: 05:24 EDMS 12/23 04:29 Order name: Lipase; Complete Time: 05:24 EDMS 12/23 04:29 Order name: Urine Culture [facility] 12/23 04:51 Order name: Glucose, Ancillary Testing; Complete Time: 05:24 EDMS 12/23 04:52 Order name: Lactate; Complete Time: 05:24 EDMS 12/23 04:28 Order name: IV Saline Lock; Complete Time: 04:46 [facility] 12/23 04:28 Order name: Labs collected and sent; Complete Time: 04:46 [facility] 12/23 04:28 Order name: CT Stone Protocol [facility] 12/23 05:18 Order name: Urine Dipstick-Ancillary; Complete Time: 05:24 EDMS 12/23 06:35 Order name: Chest Single View XRAY; Complete Time: 08:06 [facility] 12/23 08:58 Order name: Herzog; Complete Time: 09:57 [facility] Administered Medications: 05:21 Drug: NS 0.9% 1000 ml Route: IV; Rate: 1 bolus; Site: right antecubital; jb4 05:21 Drug: Rocephin (cefTRIAXone) 1 grams Route: IV; Rate: per protocol; Site: right jb4 antecubital; 05:30 Follow up: Response: No adverse reaction; IV Status: Completed infusion jb4 05:21 Drug: morphine 4 mg Route: IVP; Site: right antecubital; jb4 05:35 Follow up: Response: No adverse reaction; Pain is decreased; RASS: Alert and Calm (0) jb4 05:21 Drug: Zofran (Ondansetron) 4 mg Route: IVP; Site: right antecubital; jb4 05:34 Follow up: Response: No adverse reaction jb4 06:09 Drug: Cipro (ciprofloxacin) 500 mg Route: PO; jb4 06:47 Follow up: Response: No adverse reaction jb4 06:47 Drug: Bactrim (trimethoprim-sulfamethoxazole) (160 mg-800 mg (DS) 1 tablet Route: PO; jb4 09:57 Drug: Viscous Lidocaine Liquid (4 %) 5 ml Route: Mucous Membrane; tr6 09:57 Drug: Dilaudid (HYDROmorphone) 1 mg Route: IVP; Site: right antecubital; tr6 09:57 Drug: Zofran (Ondansetron) 4 mg Route: IVP; Site: right antecubital; tr6 Point of Care Testing: Blood Glucose: 04:11 Blood Glucose: 258 mg/dL; bb Ranges: Critical Glucose Levels:Adult <50 mg/dl or >400 mg/dl <40 mg/dl or >180 mg/dl Disposition Summary: 12/23/20 09:07 Discharge Ordered Location: Home karen Problem: new karen Symptoms: have improved karen Condition: Stable karen Diagnosis - UTI/ Urinary tract infection, site not specified karen - Unspecified kidney failure - chronic karen - Type 1 diabetes mellitus with hyperglycemia karen - Essential (primary) hypertension karen - Retention of urine, unspecified karen Followup: karen - With: Private Physician - When: 2 - 3 days - Reason: Recheck today's complaints, Continuance of care, Re-evaluation by your physician Followup: karen - With: - When: 2 - 3 days - Reason: Recheck today's complaints, Continuance of care, Re-evaluation by your physician Discharge Instructions: - Discharge Summary Sheet karen - Type 1 Diabetes Mellitus, Diagnosis, Adult karen - Dysuria karen - Hyperglycemia karen - Urinary Tract Infection, Adult karen - Hypertension, Adult karen - Urinary Tract Infection, Adult, [id number] karen - Hypertension, Adult, [id number] karen - Indwelling Urinary Catheter Insertion karen - Indwelling Urinary Catheter Insertion, Care After karen Forms: - Medication Reconciliation Form karen - Thank You Letter karen - Antibiotic Education karen - Prescription Opioid Use karen Prescriptions: - Cipro 250 mg Oral Tablet - take 1 tablet by ORAL route every 12 hours; 20 tablet; Refills: 0, Product [facility] Selection Permitted - Bactrim DS 800-160 mg Oral Tablet - take 1 tablet by ORAL route every 12 hours for 10 days; 20 tablet; Refills: 0, [facility] Product Selection Permitted - tamsulosin 0.4 mg Oral capsule - take 1 capsule by ORAL route once daily 1/2 hour following the same meal each [facility] day; 14 capsule; Refills: 0, Product Selection Permitted - acetaminophen-codeine 300-15 mg Oral tablet - take 2 tablet by ORAL route every 4-6 hours; 20 tablet; Refills: 0, Product [facility] Selection Permitted Signatures: Dispatcher [employer] EDLaron Mahmood MD MD cha Ballard, Brenda RN RN Ildefonso Zepeda RN RN jb4 Ariadne Sharp RN RN tr6 Corrections: (The following items were deleted from the chart) 04:06 04:03 PMHx: Diabetes - NIDDM; ad duong
--- NOTE | 2020-12-23 09:08 | ER ---
Nurse's Notes [facility] Name: Alex Skaggs Age: 40 yrs Sex: Male : 1980 Arrival Date: 12/23/2020 Time: 03:33 Bed 8 Private MD: Diagnosis: UTI/ Urinary tract infection, site not specified;Unspecified kidney failure-chronic;Type 1 diabetes mellitus with hyperglycemia;Essential (primary) hypertension;Retention of urine, unspecified Presentation: 12/23 03:59 Chief complaint: Patient states: he has hx of kidney infections and now has low back bb pain, bladder pain, and is urinating blood. Coronavirus screen: At this time, the client does not indicate any symptoms associated with coronavirus-19. Ebola Screen: No symptoms or risks identified at this time. Initial Sepsis Screen: Does the patient meet any 2 criteria? RR > 20 per min. HR > 90 bpm. Yes Does the patient have a suspected source of infection? Yes: Dysuria/Frequency/Urgency/UTI. Risk Assessment: Do you want to hurt yourself or someone else? Patient reports no desire to harm self or others. Onset of symptoms was December 21, 2020. 03:59 Method Of Arrival: Ambulatory bb 03:59 Acuity: MIKIE 2 bb Historical: - Allergies: 04:03 No Known Allergies; bb - Home Meds: 04:03 gabapentin oral [Active]; Oxybutynin Chloride Oral [Active]; Metoprolol Tartrate Oral bb [Active]; Hydrochlorothiazide Oral [Active]; tamsulosin oral [Active]; Insulin: Regular Sub-Q [Active]; Novolin 70/30 [place] Sub-Q [Active]; - PMHx: 04:03 Hypertension; kidney infection; IDDM; bb - PSHx: 04:03 kidney stents; bb - Immunization history:: Adult Immunizations up to date, Client reports having NOT received the Covid vaccine. - Social history:: Smoking status: Patient reports the use of cigarette tobacco products, smokes one pack cigarettes per day. - Family history:: not pertinent. Screenin:40 Abuse screen: Denies threats or abuse. Denies injuries from another. Nutritional tr6 screening: No deficits noted. Tuberculosis screening: No symptoms or risk factors identified. Fall Risk None identified. Assessment: 04:15 General: Appears in no apparent distress. uncomfortable, Behavior is calm, cooperative, jb4 appropriate for age. Pain: Complains of pain in low back area Pain does not radiate. Pain currently is 10 out of 10 on a pain scale. Quality of pain is described as sharp. Neuro: Level of Consciousness is awake, alert, obeys commands, Oriented to person, place, time, situation. Cardiovascular: Patient's skin is warm and dry. Respiratory: Airway is patent Respiratory effort is labored, Respiratory pattern is symmetrical, tachypnea. GI: No signs and/or symptoms were reported involving the gastrointestinal system. : Reports discharge, bloody, pain with urination, urgency, urinary frequency. EENT: No signs and/or symptoms were reported regarding the EENT system. Derm: Skin is intact, Skin is pink, warm \T\ dry. Musculoskeletal: Circulation, motion, and sensation intact. Range of motion: intact in all extremities. 05:15 Reassessment: Patient appears in no apparent distress at this time. No changes from jb4 previously documented assessment. Patient and/or family updated on plan of care and expected duration. Pain level reassessed. 06:13 Reassessment: Patient appears in no apparent distress at this time. Patient and/or jb4 family updated on plan of care and expected duration. Pain level reassessed. Pt continues to report pain, reports it is more tolerable now. Respirations continue to be tachypneic and labored. Patient states feeling better. 06:33 Reassessment: Patient appears in no apparent distress at this time. Patient and/or jb4 family updated on plan of care and expected duration. Pain level reassessed. Patient is alert, oriented x 3, equal unlabored respirations, skin warm/dry/pink. Pt states the pain in his lower back has gone, but still has some pain in his bladder. Patient states symptoms have improved. Vital Signs: 03:59 BP 151 / 107; Pulse 95; Resp 30 S; Temp 98.6; Pulse Ox 100% on R/A; Weight 113.4 kg bb (R); Height 5 ft. 4 in. (162.56 cm) (R); Pain 10/10; 06:00 BP 173 / 92; Pulse 88; Resp 26; Pulse Ox 96% on R/A; jb4 06:34 BP 171 / 115; Pulse 88; Resp 20; Pulse Ox 98% on R/A; jb4 09:40 Temp 98.1(O); tr6 03:59 Body Mass Index 42.91 (113.40 kg, 162.56 cm) ED Course: 03:33 Patient arrived in ED. am2 04:03 Triage completed. bb 04:03 Arm band placed on right wrist. Patient placed in an exam room, on a stretcher, on bb pulse oximetry. Family accompanied patient. 04:20 Laron Pham MD is Attending Physician. [facility] 04:20 Ildefonso Haider, CHIDI is Primary Nurse. jb4 05:28 CT Stone Protocol In Process Unspecified. EDMS 07:21 Chest Single View XRAY In Process Unspecified. EDMS 09:06 Burt Acosta MD is Referral Physician. karen 09:40 Patient has correct armband on for positive identification. Bed in low position. Call tr6 light in reach. 09:40 No provider procedures requiring assistance completed. IV is patent. tr6 09:57 Herzog cath inserted, using sterile technique, 16 Fr., by ut, balloon inflated. tr6 10:31 IV discontinued, intact, bleeding controlled, No redness/swelling at site. Pressure tr6 dressing applied. Administered Medications: 05:21 Drug: NS 0.9% 1000 ml Route: IV; Rate: 1 bolus; Site: right antecubital; jb4 05:21 Drug: Rocephin (cefTRIAXone) 1 grams Route: IV; Rate: per protocol; Site: right jb4 antecubital; 05:30 Follow up: Response: No adverse reaction; IV Status: Completed infusion jb4 05:21 Drug: morphine 4 mg Route: IVP; Site: right antecubital; jb4 05:35 Follow up: Response: No adverse reaction; Pain is decreased; RASS: Alert and Calm (0) jb4 05:21 Drug: Zofran (Ondansetron) 4 mg Route: IVP; Site: right antecubital; jb4 05:34 Follow up: Response: No adverse reaction jb4 06:09 Drug: Cipro (ciprofloxacin) 500 mg Route: PO; jb4 06:47 Follow up: Response: No adverse reaction jb4 06:47 Drug: Bactrim (trimethoprim-sulfamethoxazole) (160 mg-800 mg (DS) 1 tablet Route: PO; jb4 09:57 Drug: Viscous Lidocaine Liquid (4 %) 5 ml Route: Mucous Membrane; tr6 09:57 Drug: Dilaudid (HYDROmorphone) 1 mg Route: IVP; Site: right antecubital; tr6 09:57 Drug: Zofran (Ondansetron) 4 mg Route: IVP; Site: right antecubital; tr6 Point of Care Testing: Blood Glucose: 04:11 Blood Glucose: 258 mg/dL; bb Ranges: Output: 10:30 Urine: 600ml (Herzog); Total: 600ml. tr6 Outcome: 09:07 Discharge ordered by MD. jones 10:31 Discharged to home ambulatory, pt refused wheelchair at this time tr6 10:31 Condition: improved 10:31 Discharge instructions given to patient, family, Instructed on discharge instructions, follow up and referral plans. medication usage, safety practices, Demonstrated understanding of instructions, follow-up care, medications, Prescriptions given X 4. 10:51 Patient left the ED. 5 Signatures: Dispatcher [employer] EDMS Laron Pham MD MD cha Ballard, Brenda, CHIDI RN Ildefonso Zepeda RN RN Manisha Espinosa 5 Martha Subramanian Tiffany, RN RN tr6 Corrections: (The following items were deleted from the chart) 04:06 04:03 PMHx: Diabetes - NIDDM; ad duong 06:27 05:45 Reassessment: PT removed own C-collar. Ct results pending. alma jb 06:27 06:24 Reassessment: Pt given gatorade per providers request. Arnulfo [facility] 06:34 06:33 Reassessment: Patient appears in no apparent distress at this time. Patient jb4 and/or family updated on plan of care and expected duration. Pain level reassessed. Patient is alert, oriented x 3, equal unlabored respirations, skin warm/dry/pink. Patient states symptoms have improved. jb4
[2020-12-23] MEDS ORDERED: HYDROMORPHONE HCL 1 MG/ML INJ ONE (10:07)
[2020-12-23] MEDS ORDERED: LIDOCAINE VISCOUS 2% SOLN 15 ML UDC ONE (10:08)
--- NOTE | 2020-12-23 10:59 | RAD REPORT ---
EXAM DESCRIPTION: CT - Stone Protocol - 12/23/2020 7:14 am CLINICAL HISTORY: Flank pain;Hematuria COMPARISON: 10/29/2020 TECHNIQUE: CT of the abdomen and pelvis without IV contrast. Evaluation of the solid organs and vasc ulature is suboptimal due to lack of IV contrast. This exam was performed according to our department al dose-optimization program, which includes automated exposure control, adjustment of the mA and/or kV according to patient size and/or use of iterative reconstruction technique. FINDINGS: Lung Bases: Minimal dependent atelectasis. Bones: Multilevel endplate spondylosis. Stable compression deformities of T11 and T12. Abdomen: Liver: The liver has normal size and density. Gallbladder: No calcified gallstones. Spleen, Pancreas, and Adrenal Glands: The spleen, pancreas, and adrenal glands are unremarkable. Kidneys: Severe bilateral hydronephrosis with bilateral ureteral stents in place. Vasculature: The aorta and IVC have normal caliber and position. Stomach: The stomach and duodenum have normal course. Other: No free intraperitoneal air. Enlarged perirectal and pelvic lymph nodes again identified. Pelvis: Bladder: Wall thickening of the urinary bladder. Bowel: No dilated loops of large or small bowel. Appendix: Normal appendix. Pelvis: Small bilateral fat-containing hernias. IMPRESSION: 1. Severe bilateral hydronephrosis with bilateral ureteral stents in place. This may i ndicate stent dysfunction. 2. Wall thickening of the urinary bladder. This could be seen with cystitis. 3. Enlarged perirectal and pelvic lymph nodes again identified. Electronically signed by: Jonas Strong 12/23/2020 6:43 AM CDT Due to temporary technical issues with the PACS/Fluency reporting system, reports are being signed by the in house radiologist without review as a courtesy to ensure prompt reporting. The interpreting r adiologist is fully responsible for the content of the report.
[2020-12-23 11:03] VITALS: BP 171/115; O2SAT 98
[2020-12-23 11:06] VITALS: TEMP 98.1
--- NOTE | 2020-12-24 14:06 | P.PN ---
Date of Service: 12/23/20 This is designed to communicate and summarize the outpatient events relative to the care of Mr. Skaggs for emergency department and hospitalist physicians and APPs for what will likely be recurrent future emergency visits. Of note: I was contacted by Dr. Pham from the ED 12/23/20 while away on vacation after Mr. Skaggs came into the ED once again. Per our discussion, he was non-toxic, his renal function was near his baseline, the stents were in good position but the bladder was severely thickened and there was hydronephrosis. Recommendation: replace the urethral Herzog catheter. 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 -I counseled the patient extensively, over 35-45 minutes explaining to him the potential damage that he will do to his kidneys associated with his failure to empty his bladder and the reflux of the urine and back up into the kidney that will occur. I explained that this could cause significant kidney failure which could send him over into dialysis need and increases risk of . I strongly recommended either we place a Herzog catheter or we could teach him how to perform CIC to regularly empty his bladder. I tried to reassure him that this was a temporary solution until we could complete the evaluation and figure out why he was unable to void. I left him for some time to think about his options, and when I return, he seems somewhat frustrated and suggested he refused to have a catheter or to catheterize himself and if he were to from this, "he was ready to ". I explained that he was likely just frustrated at this time and overreacting a bit to the circumstance. I tried to calm him down and explained the benefit to managing the obstruction suggesting that while I initially wanted him to get an ultrasound, as long as he was catheterized or catheterizing, we could avoid getting the ultrasound and instead proceed directly to the urodynamic evaluation. He still refused catheterization. I thus asked him to agree to expediting the following: -Urodynamic evaluation at [place] -Virtual visit follow-up in about 2 weeks -I counseled that if he changes his mind about either having a catheter, which could be capped and intermittently drained, or intermittently catheterizing, he should let us know and we could manage that for him even tomorrow Since that time, [facility] practice in [place] has contracted for urodynamic services to be performed in our offices. Unfortunately, he did not do the virtual visit follow up, and he never scheduled the urodynamic evaluation to decipher his underlying voiding dysfunction, which is causing his hydronephrosis and CKI. My office staff attempted to follow up with him on several occasions on 10/22 and 10/23/20, and each time, he hung up in their faces. As a result, I recommended we remove the ureteral stents to minimize the risk of future ascending infection and encrustation. Because he expressed cost and ability to pay for the stents to be removed to be an issue, I even reached out to clinic management for approval to provide the service/procedure at no charge. They approved the no charge stent removals, but then the patient suggested he only wanted to do it under anesthesia. Attempts to contact the patient to arrange hospital day surgery procedure +/- Medicaid approval by my staff were met with belligerence and the patient again hanging up in their faces. In the interim, he returned to the ER again with signs of acute infection/suspected sepsis, and he was again placed on Meropenem therapy for presumed ESBL infection. Because he was acutely infected, I explained he would require at least 2-3 days of antimicrobial therapy before the only urologic intervention I would recommend as an inpatient beyond placing a Herzog catheter could take place, removal of the ureteral stents. Because I was away on vacation, I was unable to accommodate the inpatient stent removal under anesthesia, and so he was discharged with recommendations to follow up with me in ~2 weeks for the urethral Herzog catheter and the stents to be removed. On 11/12/20, his contacted my office about having the urethral Herzog catheter removed. She spoke to JORGE ALBERTO Fang, who informed her that his situation was more complex and merited more than simply a visit to take out the catheter; so his hung up on [employer] Annalisa. Per hospital records, he then apparently came to the ER requesting to have the catheter removed. 12/23/20, he returned to the ER with complaints of pain and bilateral hydronephrosis despite the stents in place. My office will now send him a certified letter informing him again of the imperative that the stents be removed within 6 months of their placement, 09/15/20, and if he will not complete the evaluation and treatment as recommended, we will remove them free of charge in the office. If he fails to respond, he assumes all the risks associated with retained ureteral stents, and he must seek all future care with another urologist. My recommendations remain the following: - maintain the urethral Herzog catheter or initiate CIC - schedule and complete urodynamic evaluation (may be with me or any other urologist of the patient's choosing). This is necessary to preserve his renal function and to decipher to etiology and prognosis of his voiding dysfunction. It is necessary to determine the role, if any, for surgical therapy. - if he continues to refuse the above, it is imperative that the ureteral stents be removed to prevent future complication. The upper tract obstruction is likely to recur, especially if he continues to refuse catheterization and evaluation as recommended above, but we have no other good option in a belligerent and wholly non-compliant patient.
== END 2020-12-23 10:51 | disposition home or self-care (01) ==
LOC: ER 03:30
DX: N39.0 Urinary tract infection, site not specified (principal); E10.65 Type 1 diabetes mellitus with hyperglycemia; R33.9 Retention of urine, unspecified; E10.22 Type 1 diabetes mellitus with diabetic chronic kidney disease; I12.9 Hypertensive chronic kidney disease with stage 1 through stage 4 chronic kidney disease, or unspecified chronic kidney disease; N18.9 Chronic kidney disease, unspecified; F17.210 Nicotine dependence, cigarettes, uncomplicated; Z79.4 Long term (current) use of insulin
CPT/HCPCS: 36415; 51702; 71045; 74176; 76377; 80048; 80076; 81003; 82947; 83605; 83690; 85025; 87086; 87088; 96374; 96375; 99284; J1170; J2405; J7030

== ENCOUNTER 2021-01-16 01:21 | Emergency (ER) | payer SELFPAY ==
[2021-01-16 03:17] LABS: Urine Blood 2+ (Negative); Urine Glucose Trace (Negative); Urine Protein 2+ (Negative); Urine pH 5.5 (5.0-7.0)
[2021-01-16] MEDS ORDERED: MEPERIDINE HCL 25 MG/ML SYR ONE (03:25)
[2021-01-16 03:34] LABS: Absolute Lymphocytes (CBC) 1.7 K/uL (0.7-4.9); Basophils % 0.7 % (0-1.3); Hematocrit 41.3 % (39.6-49.0); Lymphocytes % 17.3 % (15.3-44.8); MPV 8.2 fL (7.6-11.3); RBC Red Blood Cell Count 4.71 M/uL (4.33-5.43)
[2021-01-16 03:46] LABS: Potassium 3.9 mmol/L (3.5-5.1)
--- NOTE | 2021-01-16 04:10 | ER ---
Nurse's Notes [facility] Name: Alex Skaggs Age: 40 yrs Sex: Male : 1980 Arrival Date: 01/16/2021 Time: 01:25 Bed 24 Private MD: Diagnosis: UTI/ Urinary tract infection, site not specified Presentation: 01/16 01:56 Chief complaint: Patient states: low back pain x 2 days, hx of UTI's, had kidney stents em removed 2 days ago, denies fever. Coronavirus screen: Client denies travel out of the [place] in the last 14 days. Ebola Screen: Patient negative for fever greater than or equal to 101.5 degrees Fahrenheit, and additional compatible Ebola Virus Disease symptoms Patient denies exposure to infectious person. Patient denies travel to an Ebola-affected area in the 21 days before illness onset. No symptoms or risks identified at this time. Initial Sepsis Screen: Does the patient meet any 2 criteria? HR > 90 bpm. Does the patient have a suspected source of infection? Yes: Dysuria/Frequency/Urgency/UTI. Risk Assessment: Do you want to hurt yourself or someone else? Patient reports no desire to harm self or others. Onset of symptoms was January 16, 2021. 01:56 Method Of Arrival: Wheelchair em 01:56 Acuity: MIKIE 3 em Triage Assessment: 04:25 General: Behavior is calm, cooperative. wg Historical: - Allergies: 01:58 No Known Allergies; em - PMHx: 01:58 Hypertension; IDDM; kidney infection; em - PSHx: 01:58 kidney stents; em - Immunization history:: Client reports having NOT received the Covid vaccine. - Social history:: Smoking status: Patient reports the use of cigarette tobacco products, smokes one pack cigarettes per day. - Family history:: not pertinent. - Hospitalizations: : No recent hospitalization is reported. - Code Status:: Full code. Screenin:06 Abuse screen: Denies threats or abuse. Denies injuries from another. Nutritional wg screening: No deficits noted. Tuberculosis screening: No symptoms or risk factors identified. Fall Risk None identified. Assessment: 03:06 Reassessment: Patient appears in no apparent distress at this time. General: Appears wg uncomfortable. Pain: Complains of pain in abdomen. Neuro: No deficits noted. Cardiovascular: No deficits noted. Respiratory: No deficits noted. GI: No deficits noted. : Reports pain in suprapubic area. EENT: No deficits noted. Derm: No deficits noted. Musculoskeletal: No deficits noted. 03:19 General: Reports. Pain: Complains of pain in abdomen, back, and bladder. Neuro: No mg4 deficits noted. Cardiovascular: No deficits noted. Respiratory: No deficits noted. GI: No deficits noted. : pt states he has pain in his back and bladder area. EENT: No deficits noted. 04:15 Reassessment: No changes from previously documented assessment. Pain: Complains of pain mg4 in back, abdomen, and bladder. Neuro: No deficits noted. Cardiovascular: No deficits noted. Respiratory: No deficits noted. GI: No deficits noted. Vital Signs: 01:56 BP 150 / 99; Pulse 90; Resp 18; Temp 97.2; Pulse Ox 99% on R/A; Weight 117.03 kg; em Height 5 ft. 6 in. (167.64 cm); Pain 10/10; 03:08 BP 138 / 87; Pulse 86; Resp 92; Temp 97.4; Pulse Ox 100% on R/A; Pain 10/10; wg 03:22 BP 144 / 98; Pulse 90; Resp 19; Temp 98.6; Pain 10/10; mg4 04:14 BP 144 / 99; Pulse 90; Resp 18; Temp 98.4; Pulse Ox 100% ; Pain 5/10; mg4 01:56 Body Mass Index 41.64 (117.03 kg, 167.64 cm) em ED Course: 01:25 Patient arrived in ED. bp1 01:58 Triage completed. em 01:58 Arm band placed on. em 02:00 Patrick Art MD is Attending Physician. rn 02:43 Rosi Retana is Primary Nurse. mg4 03:04 Basic Metabolic Panel Sent. wg 03:05 No apparent distress. wg 03:05 CBC with Diff Sent. wg 03:05 Urine Culture Sent. wg 03:05 Urine Culture Sent. wg 03:05 Urine Microscopic Only Sent. wg 03:05 No provider procedures requiring assistance completed. Urine collected:. Inserted wg saline lock: 20 gauge in left forearm, using aseptic technique. Patient maintains SpO2 saturation greater than 95% on room air. 03:06 Patient has correct armband on for positive identification. wg 04:24 IV discontinued, intact, bleeding controlled, No redness/swelling at site. Pressure wg dressing applied. Administered Medications: 03:17 Drug: Demerol (meperidine) 25 mg Route: IVP; Infused Over: 5 mins; Site: left forearm; mg4 04:25 Follow up: Response: No adverse reaction; Pain is decreased wg 04:16 Drug: Rocephin (cefTRIAXone) 1 grams Route: IV; Rate: calculated rate; Site: left wg forearm; 04:27 Follow up: IV Status: Completed infusion wg Outcome: 04:09 Discharge ordered by . rn 04:24 Discharged to home ambulatory. wg 04:24 Condition: stable 04:24 Discharge instructions given to Instructed on discharge instructions, follow up and referral plans. Demonstrated understanding of instructions, follow-up care, medications, Prescriptions given X 2. 04:29 Patient left the ED. wg Signatures: Jony Kurtz RN RN em Nieto, Roman, MD MD rn [place], Brittany bp1 Garcia, [place] mg4 Ja Peter wg
--- NOTE | 2021-01-16 04:10 | EDPHYS ---
Physician Documentation [facility] Name: Alex Skaggs Age: 40 yrs Sex: Male : 1980 Arrival Date: 01/16/2021 Time: 01:25 Bed 24 Private MD: ED Physician Patrick Art HPI: 01/16 02:50 This 40 yrs old Male presents to ER via Wheelchair with complaints of Urinary rn problems, low Back Pain. 02:50 The patient presents with urinary symptoms, dysuria, urinary frequency. rn 02:50 Onset: The symptoms/episode began/occurred 2 day(s) ago. Modifying factors: The rn symptoms are alleviated by nothing, the symptoms are aggravated by urinating. Associated signs and symptoms: Pertinent positives: dysuria, Pertinent negatives: fever. Severity of symptoms: At their worst the symptoms were moderate, in the emergency department the symptoms are unchanged. The patient has experienced similar episodes in the past. The patient has been recently seen by a physician:. Patient reports low back pain and dysuria for 2 days. Reports difficulty urinating and increased frequency. Had stents removed 2 weeks ago by his urologist. States currently on antibiotics. No trauma. No hematuria. No fever. Reports recurrent urinary infections.. Historical: - Allergies: 01:58 No Known Allergies; em - PMHx: 01:58 Hypertension; IDDM; kidney infection; em - PSHx: 01:58 kidney stents; em - Immunization history:: Client reports having NOT received the Covid vaccine. - Social history:: Smoking status: Patient reports the use of cigarette tobacco products, smokes one pack cigarettes per day. - Family history:: not pertinent. - Hospitalizations: : No recent hospitalization is reported. - Code Status:: Full code. ROS: 02:50 Constitutional: Negative for fever, chills, and weight loss, Eyes: Negative for injury, rn pain, redness, and discharge, Neck: Negative for injury, pain, and swelling, Cardiovascular: Negative for chest pain, palpitations, and edema, Respiratory: Negative for shortness of breath, cough, wheezing, and pleuritic chest pain, Abdomen/GI: Negative for nausea, vomiting, diarrhea, and constipation, Back: Negative for injury : Positive for dysuria and increased frequency MS/Extremity: Negative for injury and deformity, Skin: Negative for injury, rash, and discoloration, Neuro: Negative for headache, weakness, numbness, tingling, and seizure. 02:50 All other systems are negative. Exam: 02:50 Constitutional: This is a well developed, well nourished patient who is awake, alert, rn and in no acute distress. Patient standing and currently urinating into urinal on his own power. Head/Face: Normocephalic, atraumatic. Eyes: Periorbital areas with no swelling, redness, or edema. Cardiovascular: Regular rate and rhythm. No pulse deficits. Respiratory: No increased work of breathing, no retractions or nasal flaring. Abdomen/GI: Soft, mild suprapubic tenderness, no rebound or guarding Back: No spinal tenderness. No costovertebral tenderness. Full range of motion. Skin: Warm, dry MS/ Extremity: Pulses equal, no cyanosis. Neuro: Awake and alert, GCS 15, ambulatory with normal strength. Vital Signs: 01:56 BP 150 / 99; Pulse 90; Resp 18; Temp 97.2; Pulse Ox 99% on R/A; Weight 117.03 kg; em Height 5 ft. 6 in. (167.64 cm); Pain 10/10; 03:08 BP 138 / 87; Pulse 86; Resp 92; Temp 97.4; Pulse Ox 100% on R/A; Pain 10/10; wg 03:22 BP 144 / 98; Pulse 90; Resp 19; Temp 98.6; Pain 10/10; mg4 04:14 BP 144 / 99; Pulse 90; Resp 18; Temp 98.4; Pulse Ox 100% ; Pain 5/10; mg4 01:56 Body Mass Index 41.64 (117.03 kg, 167.64 cm) em MDM: 02:00 Patient medically screened. rn 04:06 Differential diagnosis: UTI. ED course: P[place] score 90/60/000, will prescribe small rn amount of pain medication.. 04:07 Data reviewed: vital signs, nurses notes, old medical records, lab test result(s), and rn as a result, I will discharge patient. Data interpreted: personnel monitor: rate is 90 beats/min, rhythm is normal sinus rhythm, regular, with no ectopy, Interpretation: normal rate, normal rhythm, Pulse oximetry: on room air is 100 %. Interpretation: normal. Counseling: I had a detailed discussion with the patient and/or guardian regarding: the historical points, exam findings, and any diagnostic results supporting the discharge/admit diagnosis, lab results, radiology results, the need for outpatient follow up, to return to the emergency department if symptoms worsen or persist or if there are any questions or concerns that arise at home. Response to treatment: the patient's symptoms have markedly improved after treatment, and as a result, I will discharge patient. Special discussion: I discussed with the patient/guardian in detail that at this point there is no indication for admission to the hospital. It is understood, however, that if the symptoms persist or worsen the patient needs to return immediately for re-evaluation. Based on the history and exam findings, there is no indication for further emergent testing or inpatient evaluation. I discussed with the patient/guardian the need to see the urologist for further evaluation of the symptoms. ED course: Will switch patient's antibiotic to Vantin from Cipro. Urine shows urine infection. Bladder scan shows empty bladder so not in retention. Will DC home with urology follow-up.. 01/16 02:01 Order name: Urine Culture 01/16 02:01 Order name: Urine Microscopic Only 01/16 02:02 Order name: Urine Culture [facility] 01/16 02:13 Order name: CBC with Diff; Complete Time: 04:07 01/16 02:13 Order name: Basic Metabolic Panel; Complete Time: 04:07 01/16 03:15 Order name: Urine Dipstick-Ancillary; Complete Time: 03:17 [facility] 01/16 02:01 Order name: Urine Dipstick-Ancillary (obtain specimen); Complete Time: 03:16 01/16 02:13 Order name: Bladder Scanner; Complete Time: 03:05 01/16 02:13 Order name: IV Start; Complete Time: 03:05 rn Administered Medications: 03:17 Drug: Demerol (meperidine) 25 mg Route: IVP; Infused Over: 5 mins; Site: left forearm; mg4 04:25 Follow up: Response: No adverse reaction; Pain is decreased wg 04:16 Drug: Rocephin (cefTRIAXone) 1 grams Route: IV; Rate: calculated rate; Site: left wg forearm; 04:27 Follow up: IV Status: Completed infusion wg Disposition Summary: 01/16/21 04:09 Discharge Ordered Location: Home rn Problem: new rn Symptoms: have improved rn Condition: Stable rn Diagnosis - UTI/ Urinary tract infection, site not specified rn Followup: rn - With: Private Physician - When: As needed - Reason: Recheck today's complaints, Re-evaluation by your physician Discharge Instructions: - Discharge Summary Sheet rn - Urinary Tract Infection, Adult rn Forms: - Medication Reconciliation Form rn - Thank You Letter rn - Antibiotic ornamental painter - Prescription Opioid Use rn Prescriptions: - Tramadol 50 mg Oral Tablet - take 1 tablet by ORAL route every 8 hours as needed; 12 tablet; Refills: 0, rn Product Selection Permitted - cefpodoxime 100 mg Oral Tablet - take 2 tablets by ORAL route every 12 hours for 10 days take with food; 40 rn tablet; Refills: 0, Product Selection Permitted Signatures: Dispatcher [employer] Jony Simms, RN RN Patrick Lopez MD MD rn Garcia, [place] mg4 Ja Peter
[2021-01-16] MEDS ORDERED: CEFTRIAXONE 1000 MG/VIAL ONE (04:35)
[2021-01-16 04:38] VITALS: O2SAT 100
[2021-01-16 04:41] VITALS: BP 144/99; TEMP 98.4
[2021-01-16 04:52] LABS: Urine Bacteria 20-50 /HPF (NONE SEEN)
== END 2021-01-16 04:29 | disposition home or self-care (01) ==
LOC: ER 01:21
DX: N39.0 Urinary tract infection, site not specified (principal); I10 Essential (primary) hypertension; F17.210 Nicotine dependence, cigarettes, uncomplicated
CPT/HCPCS: 36415; 80048; 81003; 81015; 85025; 87086; 87088; 96374; 96375; 99284; J2175